=== PATIENT | female | born 1995 ===

== ENCOUNTER → 2017-07-20 | Outpatient (CLI) | payer SELFPAY ==
--- NOTE | 2017-07-20 11:55 | Diagnostic Imaging Report ---
PROCEDURE: US abdomen complete. TECHNIQUE: Multiple real-time grayscale images were obtained over the abdomen in various projections. INDICATION: Thrombocytopenia. FINDINGS: The pancreas is unremarkable. The liver is normal in size at 14.2 cm. There is homogeneous echotexture throughout the liver. No liver mass is identified. The portal vein is patent and demonstrates normal direction of flow. The gallbladder is without stones or sludge. No wall thickening is identified. There is no biliary duct dilatation. The spleen is normal in size at 9.2 cm. The right and left kidneys are unremarkable. There is no ascites. IMPRESSION: Unremarkable abdominal ultrasound. Dictated by: Dictated on workstation # [id number]
== END ==
LOC: RAD 09:59
PROVIDERS: ATTEND Internal Medicine Hematology & Oncology
DX: D69.6 Thrombocytopenia, unspecified (principal)
CPT/HCPCS: 76700

== ENCOUNTER → 2017-07-26 | Outpatient (CLI) | payer SELFPAY ==
--- NOTE | 2017-07-26 15:47 | Diagnostic Imaging Report ---
PROCEDURE: US OB SINGLE FETUS <14 WKS. TECHNIQUE: Multiple Real-time grayscale images were obtained over the gravid uterus in various projections. INDICATION: dating. FINDINGS: There is an intrauterine gestational sac containing a pole. The crown/rump length measurement is 4.2 cm, consistent with an 11 week 1 day gestation. The heart rate was recorded at 174 BPM. No raven-gestational sac hemorrhage is detected. Adnexal evaluation is somewhat limited due to overlying bowel gas. No definite adnexal mass or free fluid is seen. IMPRESSION: Single live IUP of 11 weeks 1 day gestational age. The estimated date of confinement sonographically is 02/13/2018. Dictated by: Dictated on workstation # [id number]
== END ==
LOC: RAD 13:40
PROVIDERS: ATTEND Family Medicine
DX: Z34.81 Encounter for supervision of other normal pregnancy, first trimester (principal); Z3A.11 11 weeks gestation of pregnancy
CPT/HCPCS: 76801

== ENCOUNTER 2017-08-28 11:00 | Emergency (ER) | payer SELFPAY ==
[~2017-08-28] VITALS: Ht 152.4 cm; Wt 48.5 kg
--- NOTE | 2017-08-28 11:59 | ED GU-Female ---
General Chief Complaint: -Female Stated Complaint: ABD PAIN Nursing Triage Note: TO ROOM CALLED SUSTAINABLE DEVELOPMENT POLICY ANALYST LINE FOR PATIENT WHO REPORTS THROUGH THEM THAT SHE IS HAVING LOW ABD PAIN SINCE LAST NIGHT AMD 3 MONTHS PREG. Nursing Sepsis Screen: No Definite Risk Source: patient, science interpreter Exam Limitations: language barrier History of Present Illness Date Seen by Provider: Aug 28, 2017 Time Seen by Provider: 11:59 Initial Comments 22-year-old female patient presents to the emergency Department with reports of lower abdominal pain which is cramping in nature. Patient denies vaginal bleeding, fever, hematuria. Patient states she has chronic idiopathic thrombocytopenia and sees Dr. Mobley for this. Patient is currently taking prednisone for the ITP. Patient is approximately [address] Olivera for OB care. States she was seen approximately [address] Guajardo and Dr. Olivera. She is scheduled for an another appointment with both physicians on neuro 09/01/17. Timing/Duration: constant Severity/Quality: cramping Location: suprapubic Radiation: none Activities at Onset: none Prior Genitourinary Problems: none Modifying Factors: Worsens With Palpation Allergies and Home Medications Allergies Coded Allergies: No Known Drug Allergies (Unverified , 08/28/17) Home Medications Cephalexin 500 Mg Capsule, 500 MG PO TID Prescribed by: LUCIANO WONG on 08/28/17 1518 Patient Home Medication List Home Medication List Reviewed: Yes Review of Systems Constitutional: No chills, No dizziness, No fever, No malaise EENTM: no symptoms reported, No epistaxis Respiratory: No cough, No dyspnea on exertion, No hemoptysis, No phlegm, No short of breath Cardiovascular: No chest pain, No edema, No palpitations Gastrointestinal: abdominal pain, No constipation, No diarrhea, No hematemesis , No loss of appetite, No melena, No nausea, No vomiting Genitourinary: see HPI, denies burning, denies discharge, denies dysuria, denies frequency, denies flank pain, denies hematuria, pain, denies other ( denies vaginal bleeding) : Yes Expected Date of Delivery: Feb 13, 2018 Musculoskeletal: no symptoms reported Skin: no symptoms reported, No change in color Psychiatric/Neurological: No Symptoms Reported Hematologic/Lymphatic: See HPI, Denies Easy Bleeding, Denies Easy Bruising All Other Systemes Reviewed Negative Unless Noted: Yes (Negative excepted noted.) Past Vfsmqnt-Rzxdnn-Pcmsdx Hx Patient Social History Alcohol Use: Denies Use Recreational Drug Use: No Smoking Status: Never a Smoker Recent Foreign Travel: No Contact w/Someone Who Travel: No Recent Infectious Disease Expo: No Past Medical History Surgeries: Yes Section Respiratory: No Cardiac: No Neurological: No : Yes Expected Date of Delivery: Feb 13, 2018 Hx : 3 Hx Para: 1 Hx Total # of Abortions (Sp): 1 Reproductive Disorders: No Female Reproductive Disorders: Denies Genitourinary: No Gastrointestinal: No Musculoskeletal: No Endocrine: No Psychosocial: No Integumentary: No Blood Disorders: Yes (chronic ITP (worse during pregnancies)) Family Medical History Reviewed Nursing Family Hx No Pertinent Family Hx Physical Exam Vital Signs Vital Signs - First Documented 08/28/17 11:13 Temp 98.0 Pulse 98 Resp 18 B/P (MAP) 93/68 (76) Pulse Ox 97 O2 Delivery Room Air Capillary Refill : Less Than 3 Seconds General Appearance: WD/WN, no apparent distress HEENT: PERRL/EOMI, pharynx normal Neck: supple, normal inspection Cardiovascular: normal peripheral pulses, regular rate, rhythm, no edema, no murmur Respiratory: lungs clear, normal breath sounds, no respiratory distress, no accessory muscle use Gastrointestinal: normal bowel sounds, soft, no organomegaly, no pulsatile mass , No distended, No guarding, No rebound, tenderness (mild tenderness suprapubic and bilateral adnexa) Back: normal inspection, no CVA tenderness Extremities: normal inspection, no pedal edema, no calf tenderness, normal capillary refill Neurologic/Psychiatric: alert, normal mood/affect, oriented x 3 Skin: normal color, warm/dry, No cyanosis, No cool, No ecchymosis, No jaundice Progress/Results/Core Measures Suspected Sepsis Recent Fever Within 48 Hours: No Infection Criteria Present: None New/Unexplained Altered Menta: No Sepsis Screen: No Definite Risk Sepsis Diagnosis: SIRS Temperature:98.0 Pulse: 98 Respiratory Rate: 18 Laboratory Tests 08/28/17 12:11: White Blood Count 13.7H Blood Pressure 93 /68 Mean: 76 Laboratory Tests 08/28/17 12:11: Creatinine 0.70, INR Comment 1.0, Platelet Count 39*L, Total Bilirubin 0.3 Results/Orders Lab Results Laboratory Tests Test 08/28/17 12:11 Range/Units White Blood Count 13.7 H 4.3-11.0 10^3/uL Red Blood Count 5.06 4.35-5.85 10^6/uL Hemoglobin 12.8 11.5-16.0 G/DL Hematocrit 39 35-52 % Mean Corpuscular Volume 77 L 80-99 FL Mean Corpuscular Hemoglobin 25 25-34 PG Mean Corpuscular Hemoglobin Concent 33 32-36 G/DL Red Cell Distribution Width 24.9 H 10.0-14.5 % Platelet Count 39 *L 130-400 10^3/uL Mean Platelet Volume 7.4-10.4 FL Neutrophils (%) (Auto) 76 H 42-75 % Lymphocytes (%) (Auto) 17 12-44 % Monocytes (%) (Auto) 6 0-12 % Eosinophils (%) (Auto) 1 0-10 % Basophils (%) (Auto) 0 0-10 % Neutrophils # (Auto) 10.4 H 1.8-7.8 X 10^3 Lymphocytes # (Auto) 2.4 1.0-4.0 X 10^3 Monocytes # (Auto) 0.8 0.0-1.0 X 10^3 Eosinophils # (Auto) 0.1 0.0-0.3 10^3/uL Basophils # (Auto) 0.0 0.0-0.1 10^3/uL Prothrombin Time 12.8 12.2-14.7 SEC INR Comment 1.0 0.8-1.4 Activated Partial Thromboplast Time 22 L 24-35 SEC Urine Color YELLOW Urine Clarity CLEAR Urine pH 6.5 5-9 Urine Specific [place] 1.015 L 1.016-1.022 Urine Protein NEGATIVE NEGATIVE Urine Glucose (UA) NEGATIVE NEGATIVE Urine Ketones NEGATIVE NEGATIVE Urine Nitrite NEGATIVE NEGATIVE Urine Bilirubin NEGATIVE NEGATIVE Urine Urobilinogen NORMAL NORMAL MG/DL Urine Leukocyte Esterase 1+ H NEGATIVE Urine RBC (Auto) NEGATIVE NEGATIVE Urine RBC NONE /HPF Urine WBC 2-5 /HPF Urine Squamous Epithelial Cells 5-10 /HPF Urine Crystals NONE /LPF Urine Bacteria MODERATE H /HPF Urine Casts NONE /LPF Urine Mucus NEGATIVE /LPF Urine Culture Indicated NO Sodium Level 136 135-145 MMOL/L Potassium Level 3.5 L 3.6-5.0 MMOL/L Chloride Level 103 98-107 MMOL/L Carbon Dioxide Level 25 21-32 MMOL/L Anion Gap 8 5-14 MMOL/L Blood Urea Nitrogen 5 L 7-18 MG/DL Creatinine 0.70 0.60-1.30 MG/DL Estimat Glomerular Filtration Rate > 60 BUN/Creatinine Ratio 7 Glucose Level 77 70-105 MG/DL Calcium Level 9.5 8.5-10.1 MG/DL Total Bilirubin 0.3 0.1-1.0 MG/DL Aspartate Amino Transf (AST/SGOT) 15 5-34 U/L Alanine Aminotransferase (ALT/SGPT) 19 0-55 U/L Alkaline Phosphatase 58 40-136 U/L Total Protein 7.4 6.4-8.2 GM/DL Albumin 4.1 3.2-4.5 GM/DL My Orders Orders - LUCIANO WONG Ua Culture If Indicated (08/28/17 11:59) Heart Tones (08/28/17 11:59) Saline Lock/Iv-Start (08/28/17 12:05) Cbc With Automated Diff (08/28/17 12:05) Comprehensive Metabolic Panel (08/28/17 12:05) Protime With Inr (08/28/17 12:18) Partial Thromboplastin Time (08/28/17 12:18) Morphine Injection (Morphine Injection (08/28/17 12:41) Ondansetron Injection (Zofran Injectio (08/28/17 12:45) Ns Iv 1000 Ml (Sodium Chloride 0.9%) (08/28/17 12:41) Us Ob Preg Late(14-40wks)94212 (08/28/17 12:42) Medications Given in ED Current Medications Medications Dose Ordered Sig/Jesus Route Start Time Stop Time Status Last Admin Dose Admin Ondansetron HCl 4 mg ONCE ONCE IVP 08/28/17 12:45 08/28/17 12:46 DC 08/28/17 12:52 4 MG Sodium Chloride 1,000 ml @ 0 mls/hr Q0M ONCE IV 08/28/17 12:41 08/28/17 12:43 DC 08/28/17 12:52 1,000 MLS/HR Vital Signs/I&O 08/28/17 08/28/17 11:13 15:27 Temp 98.0 Pulse 98 69 Resp 18 18 B/P (MAP) 93/68 (76) 102/72 Pulse Ox 97 98 O2 Delivery Room Air Capillary Refill : Less Than 3 Seconds Blood Pressure Mean: 76 Diagnostic Imaging Diagonstic Imaging: Ultrasound Plain Films/CT/US/NM/MRI: pelvis Comments FINDINGS: Estimated gestational age based on initial ultrasound 15 weeks 6 days. Today's measurements correspond to 15 weeks 6 days compatible with appropriate interval growth. Amniotic fluid volume appears appropriate. The placenta is located posteriorly without evidence of a previa. Cervix appears closed. cardiac motion appropriate at 132 beats per minute. IMPRESSION: 1. There has been appropriate interval growth compared to the prior ultrasound. Estimated gestational age 15 weeks 6 days which again corresponds to a estimated date of delivery of February 13, 2018. Amniotic fluid volume appears appropriate. The placenta is unremarkable. There is appropriate cardiac motion. Recommend a dedicated full anatomic survey at 20-22 weeks. Dictated on workstation # [id number] Reviewed: Reviewed by Me (radiology report reviewed by me) Departure Communication (Admissions) 1510 Patient case discussed with Dr. Cerda with recommendations for discharge to home with follow-up as an outpatient with Dr. Olivera. Follow-up laboratory findings, diagnostic study findings, and recommendations by Dr. Shahla Cerda discussed with the patient. We'll plan for discharge to home with 3 days of antibiotics for the moderate amount of bacteria noted on UA. Patient to return immediately to the emergency department if any worsening symptoms or any other concerns. Patient case discussed with Dr. Morales, he agrees with the plan of care. Impression Primary Impression: Lower abdominal pain Additional Impressions: Chronic ITP (idiopathic thrombocytopenia) with 15 completed weeks gestation Disposition: 01 HOME, SELF-CARE Condition: Improved Departure-Patient Inst. Decision time for Depature: 15:13 Referrals: KARINA OLIVERA MD (PCP/Family) Primary Care Physician Patient Instructions: Acute Abdomen (Belly Pain), Adult (DC), Essential Thrombocythemia, Round Ligament Pain Add. Discharge Instructions: All discharge instructions reviewed with patient and/or family. Voiced understanding. Tylenol onsi-vgq-ivfyvye as directed for pain. Continue usual home medications. Follow-up with Dr. Olivera and Dr. Guajardo this week as previously scheduled. Return to the emergency department immediately for worsened pain, fever, vomiting, vomiting blood, rectal bleeding, blood in the urine, vaginal bleeding, or any other concerns. Scripts Cephalexin (Keflex) 500 Mg Capsule 500 MG PO TID, #9 CAP 0 Refills Prov: LUCIANO WONG 08/28/17 LUCIANO WONG Aug 28, 2017 11:59
[2017-08-28 12:19] LABS: BASOPHILS % (AUTO) 0 % (0-10); EOSINOPHILS # (AUTO) 0.1 10^3/uL (0.0-0.3); EOSINOPHILS % (AUTO) 1 % (0-10); HEMATOCRIT 39 % (35-52); HEMOGLOBIN 12.8 G/DL (11.5-16.0); LYMPHOCYTES # (AUTO) 2.4 X 10^3 (1.0-4.0); LYMPHOCYTES % (AUTO) 17 % (12-44); MEAN CORPUSCULAR HEMOGLOBIN 25 PG (25-34); MEAN CORPUSCULAR HGB CONC 33 G/DL (32-36); MEAN CORPUSCULAR VOLUME 77 FL (80-99); MONOCYTES # (AUTO) 0.8 X 10^3 (0.0-1.0); MONOCYTES % (AUTO) 6 % (0-12); NEUTROPHILS # (AUTO) 10.4 X 10^3 (1.8-7.8); NEUTROPHILS % (AUTO) 76 % (42-75); RED BLOOD COUNT 5.06 10^6/uL (4.35-5.85); RED CELL DISTRIBUTION WIDTH 24.9 % (10.0-14.5); WHITE BLOOD COUNT 13.7 10^3/uL (4.3-11.0)
[2017-08-28 12:24] LABS: BILIRUBIN,URINE NEGATIVE (NEGATIVE); CLARITY,URINE CLEAR; COLOR,URINE YELLOW; GLUCOSE, URINE (UA) NEGATIVE (NEGATIVE); KETONES,URINE NEGATIVE (NEGATIVE); LEUKOCYTE ESTERASE ,URINE 1+ (NEGATIVE); NITRITE,URINE NEGATIVE (NEGATIVE); PH,URINE 6.5 (5-9); PROTEIN,URINE NEGATIVE (NEGATIVE); UROBILINOGEN,URINE NORMAL (NORMAL)
[2017-08-28 12:33] LABS: PLATELET COUNT 39 10^3/uL (130-400)
[2017-08-28 12:34] LABS: ALANINE AMINOTRANSFERASE 19 U/L (0-55); ALBUMIN 4.1 GM/DL (3.2-4.5); ALKALINE PHOSPHATASE 58 U/L (40-136); BILIRUBIN,TOTAL 0.3 MG/DL (0.1-1.0); BUN/CREATININE RATIO 7; CALCIUM 9.5 MG/DL (8.5-10.1); CARBON DIOXIDE 25 MMOL/L (21-32); CHLORIDE 103 MMOL/L (98-107); GFR ESTIMATED > 60; GLUCOSE 77 MG/DL (70-105); POTASSIUM 3.5 MMOL/L (3.6-5.0); SODIUM 136 MMOL/L (135-145); TOTAL PROTEIN 7.4 GM/DL (6.4-8.2)
[2017-08-28] MEDS ORDERED: morphine INJ 10 MG/ML 1ML (SYR OR VIAL) IVP STA (12:41)
[2017-08-28] MEDS ORDERED: NS IV 1000 ML 1,000 ML IV ONE (12:41)
[2017-08-28] MEDS ORDERED: ONDANSETRON 4 MG/2 ML (SDV) Z0FRAN IVP ONE (12:45)
[2017-08-28 12:50] LABS: BACTERIA,URINE MODERATE /HPF
[2017-08-28 12:59] LABS: PROTHROMBIN TIME PATIENT 12.8 SEC (12.2-14.7)
--- NOTE | 2017-08-28 14:11 | Diagnostic Imaging Report ---
EXAMINATION: Obstetrical sonogram INDICATION: Pelvic cramping. Correlation made with a prior ultrasound from 07/26/2017. FINDINGS: Estimated gestational age based on initial ultrasound 15 weeks 6 days. Today's measurements correspond to 15 weeks 6 days compatible with appropriate interval growth. Amniotic fluid volume appears appropriate. The placenta is located posteriorly without evidence of a previa. Cervix appears closed. cardiac motion appropriate at 132 beats per minute. IMPRESSION: 1. There has been appropriate interval growth compared to the prior ultrasound. Estimated gestational age 15 weeks 6 days which again corresponds to a estimated date of delivery of February 13, 2018. Amniotic fluid volume appears appropriate. The placenta is unremarkable. There is appropriate cardiac motion. Recommend a dedicated full anatomic survey at 20-22 weeks. Dictated by: Dictated on workstation # [id number]
[2017-08-28] MEDS ORDERED: CEPH-507 PO (15:18)
[2017-08-28 15:27] VITALS: BP 102/72
== END 2017-08-28 15:31 | disposition home or self-care (01) ==
LOC: EDUNIT# 11:00 → ER 11:01
DX: O99.89 Other specified diseases and conditions complicating pregnancy, childbirth and the puerperium (principal); R10.30 Lower abdominal pain, unspecified; O99.112 Other diseases of the blood and blood-forming organs and certain disorders involving the immune mechanism complicating pregnancy, second trimester; D69.3 Immune thrombocytopenic purpura; Z87.59 Personal history of other complications of pregnancy, childbirth and the puerperium; Z3A.15 15 weeks gestation of pregnancy
CPT/HCPCS: 36415; 76805; 80053; 81000; 85025; 85610; 85730

== ENCOUNTER → 2017-10-10 | Outpatient (RCR) | payer SELFPAY ==
[2017-07-12 10:18] LABS: BASOPHILS % (AUTO) 0 % (0-10); EOSINOPHILS # (AUTO) 0.1 10^3/uL (0.0-0.3); EOSINOPHILS % (AUTO) 1 % (0-10); HEMATOCRIT 34 % (35-52); LYMPHOCYTES # (AUTO) 1.6 X 10^3 (1.0-4.0); LYMPHOCYTES % (AUTO) 17 % (12-44); MEAN CORPUSCULAR HEMOGLOBIN 23 PG (25-34); MEAN CORPUSCULAR HGB CONC 33 G/DL (32-36); MEAN CORPUSCULAR VOLUME 70 FL (80-99); MONOCYTES # (AUTO) 0.6 X 10^3 (0.0-1.0); MONOCYTES % (AUTO) 7 % (0-12); NEUTROPHILS # (AUTO) 7.1 X 10^3 (1.8-7.8); NEUTROPHILS % (AUTO) 75 % (42-75); PLATELET COUNT 47 10^3/uL (130-400); RED BLOOD COUNT 4.81 10^6/uL (4.35-5.85); RED CELL DISTRIBUTION WIDTH 17.6 % (10.0-14.5); WHITE BLOOD COUNT 9.5 10^3/uL (4.3-11.0)
[2017-07-12 10:41] LABS: ALANINE AMINOTRANSFERASE 31 U/L (0-55); ALKALINE PHOSPHATASE 66 U/L (40-136); BILIRUBIN,TOTAL 0.3 MG/DL (0.1-1.0); BUN/CREATININE RATIO 10; CARBON DIOXIDE 22 MMOL/L (21-32); CHLORIDE 106 MMOL/L (98-107); GFR ESTIMATED > 60; GLUCOSE 89 MG/DL (70-105); POTASSIUM 3.6 MMOL/L (3.6-5.0); SODIUM 136 MMOL/L (135-145); TOTAL PROTEIN 7.3 GM/DL (6.4-8.2)
[2017-07-25 11:39] LABS: ABSOLUTE RETIC # 47 10e9/L (24-90); BASOPHILS % (AUTO) 0 % (0-10); EOSINOPHILS # (AUTO) 0.1 10^3/uL (0.0-0.3); EOSINOPHILS % (AUTO) 1 % (0-10); HEMATOCRIT 35 % (35-52); LYMPHOCYTES # (AUTO) 1.6 X 10^3 (1.0-4.0); LYMPHOCYTES % (AUTO) 20 % (12-44); MEAN CORPUSCULAR HEMOGLOBIN 23 PG (25-34); MEAN CORPUSCULAR HGB CONC 32 G/DL (32-36); MEAN CORPUSCULAR VOLUME 71 FL (80-99); MONOCYTES # (AUTO) 0.6 X 10^3 (0.0-1.0); MONOCYTES % (AUTO) 7 % (0-12); NEUTROPHILS % (AUTO) 72 % (42-75); PLATELET COUNT 46 10^3/uL (130-400); RED BLOOD COUNT 4.87 10^6/uL (4.35-5.85); RED CELL DISTRIBUTION WIDTH 19.9 % (10.0-14.5); RETICULOCYTE % 0.97 % (0.50-2.40); WHITE BLOOD COUNT 8.4 10^3/uL (4.3-11.0)
[2017-07-25 13:07] LABS: ANISOCYTOSIS SLIGHT; BAND NEUTROPHILS 0 %; BASOPHILS % (MANUAL) 1 %; ELLIPT/OVALOCYTES SLIGHT; EOSINOPHILS % (MANUAL) 2 %; LYMPHOCYTES % (MANUAL) 17 %; MICROCYTOSIS SLIGHT; MONOCYTES % (MANUAL) 2 %; NEUTROPHILS % (MANUAL) 78 %
[2017-08-04 15:06] LABS: BASOPHILS % (AUTO) 0 % (0-10); EOSINOPHILS # (AUTO) 0.1 10^3/uL (0.0-0.3); EOSINOPHILS % (AUTO) 2 % (0-10); HEMATOCRIT 32 % (35-52); HEMOGLOBIN 10.7 G/DL (11.5-16.0); LYMPHOCYTES # (AUTO) 1.6 X 10^3 (1.0-4.0); LYMPHOCYTES % (AUTO) 21 % (12-44); MEAN CORPUSCULAR HEMOGLOBIN 24 PG (25-34); MEAN CORPUSCULAR HGB CONC 33 G/DL (32-36); MEAN CORPUSCULAR VOLUME 72 FL (80-99); MONOCYTES # (AUTO) 0.6 X 10^3 (0.0-1.0); MONOCYTES % (AUTO) 7 % (0-12); NEUTROPHILS # (AUTO) 5.3 X 10^3 (1.8-7.8); NEUTROPHILS % (AUTO) 69 % (42-75); RED BLOOD COUNT 4.48 10^6/uL (4.35-5.85); RED CELL DISTRIBUTION WIDTH 21.8 % (10.0-14.5); WHITE BLOOD COUNT 7.6 10^3/uL (4.3-11.0)
[2017-08-04 15:08] LABS: PLATELET COUNT 18 10^3/uL (130-400)
[2017-08-11 16:25] LABS: BASOPHILS % (AUTO) 0 % (0-10); EOSINOPHILS # (AUTO) 0.1 10^3/uL (0.0-0.3); EOSINOPHILS % (AUTO) 1 % (0-10); HEMATOCRIT 33 % (35-52); HEMOGLOBIN 10.8 G/DL (11.5-16.0); LYMPHOCYTES # (AUTO) 2.6 X 10^3 (1.0-4.0); LYMPHOCYTES % (AUTO) 31 % (12-44); MEAN CORPUSCULAR HEMOGLOBIN 24 PG (25-34); MEAN CORPUSCULAR HGB CONC 33 G/DL (32-36); MEAN CORPUSCULAR VOLUME 74 FL (80-99); MONOCYTES # (AUTO) 0.5 X 10^3 (0.0-1.0); MONOCYTES % (AUTO) 6 % (0-12); NEUTROPHILS # (AUTO) 5.2 X 10^3 (1.8-7.8); NEUTROPHILS % (AUTO) 61 % (42-75); RED BLOOD COUNT 4.45 10^6/uL (4.35-5.85); RED CELL DISTRIBUTION WIDTH 23.1 % (10.0-14.5); WHITE BLOOD COUNT 8.6 10^3/uL (4.3-11.0)
[2017-08-11 17:26] LABS: PLATELET COUNT 45 10^3/uL (130-400)
[2017-08-15 11:36] LABS: BASOPHILS % (AUTO) 0 % (0-10); EOSINOPHILS % (AUTO) 0 % (0-10); HEMATOCRIT 36 % (35-52); HEMOGLOBIN 11.7 G/DL (11.5-16.0); LYMPHOCYTES # (AUTO) 2.4 X 10^3 (1.0-4.0); LYMPHOCYTES % (AUTO) 16 % (12-44); MEAN CORPUSCULAR HEMOGLOBIN 24 PG (25-34); MEAN CORPUSCULAR HGB CONC 33 G/DL (32-36); MEAN CORPUSCULAR VOLUME 74 FL (80-99); MONOCYTES # (AUTO) 1.1 X 10^3 (0.0-1.0); MONOCYTES % (AUTO) 7 % (0-12); NEUTROPHILS # (AUTO) 11.4 X 10^3 (1.8-7.8); NEUTROPHILS % (AUTO) 76 % (42-75); RED BLOOD COUNT 4.83 10^6/uL (4.35-5.85); RED CELL DISTRIBUTION WIDTH 24.1 % (10.0-14.5); WHITE BLOOD COUNT 14.9 10^3/uL (4.3-11.0)
[2017-08-15 12:33] LABS: PLATELET COUNT 50 10^3/uL (130-400); SMEAR SCAN COMMENT YES
[2017-08-22 10:44] LABS: BASOPHILS % (AUTO) 0 % (0-10); EOSINOPHILS % (AUTO) 0 % (0-10); HEMATOCRIT 36 % (35-52); HEMOGLOBIN 11.7 G/DL (11.5-16.0); LYMPHOCYTES # (AUTO) 1.1 X 10^3 (1.0-4.0); LYMPHOCYTES % (AUTO) 6 % (12-44); MEAN CORPUSCULAR HEMOGLOBIN 25 PG (25-34); MEAN CORPUSCULAR HGB CONC 33 G/DL (32-36); MEAN CORPUSCULAR VOLUME 76 FL (80-99); MONOCYTES # (AUTO) 0.6 X 10^3 (0.0-1.0); MONOCYTES % (AUTO) 3 % (0-12); NEUTROPHILS # (AUTO) 16.1 X 10^3 (1.8-7.8); NEUTROPHILS % (AUTO) 90 % (42-75); RED BLOOD COUNT 4.71 10^6/uL (4.35-5.85); RED CELL DISTRIBUTION WIDTH 24.5 % (10.0-14.5); WHITE BLOOD COUNT 17.8 10^3/uL (4.3-11.0)
[2017-08-22 10:56] LABS: PLATELET COUNT 29 10^3/uL (130-400)
[2017-08-29 10:49] LABS: BASOPHILS % (AUTO) 0 % (0-10); EOSINOPHILS # (AUTO) 0.1 10^3/uL (0.0-0.3); EOSINOPHILS % (AUTO) 1 % (0-10); HEMATOCRIT 37 % (35-52); HEMOGLOBIN 12.1 G/DL (11.5-16.0); LYMPHOCYTES # (AUTO) 0.9 X 10^3 (1.0-4.0); LYMPHOCYTES % (AUTO) 9 % (12-44); MEAN CORPUSCULAR HEMOGLOBIN 25 PG (25-34); MEAN CORPUSCULAR HGB CONC 33 G/DL (32-36); MEAN CORPUSCULAR VOLUME 77 FL (80-99); MONOCYTES # (AUTO) 0.4 X 10^3 (0.0-1.0); MONOCYTES % (AUTO) 4 % (0-12); NEUTROPHILS # (AUTO) 9.6 X 10^3 (1.8-7.8); NEUTROPHILS % (AUTO) 87 % (42-75); RED BLOOD COUNT 4.78 10^6/uL (4.35-5.85); RED CELL DISTRIBUTION WIDTH 24.8 % (10.0-14.5); WHITE BLOOD COUNT 11.1 10^3/uL (4.3-11.0)
[2017-08-29 10:52] LABS: PLATELET COUNT 57 10^3/uL (130-400)
[2017-09-01 15:32] LABS: BASOPHILS % (AUTO) 0 % (0-10); EOSINOPHILS # (AUTO) 0.1 10^3/uL (0.0-0.3); EOSINOPHILS % (AUTO) 1 % (0-10); HEMATOCRIT 34 % (35-52); HEMOGLOBIN 11.2 G/DL (11.5-16.0); LYMPHOCYTES # (AUTO) 1.9 X 10^3 (1.0-4.0); LYMPHOCYTES % (AUTO) 19 % (12-44); MEAN CORPUSCULAR HEMOGLOBIN 25 PG (25-34); MEAN CORPUSCULAR HGB CONC 33 G/DL (32-36); MEAN CORPUSCULAR VOLUME 77 FL (80-99); MONOCYTES # (AUTO) 0.7 X 10^3 (0.0-1.0); MONOCYTES % (AUTO) 7 % (0-12); NEUTROPHILS # (AUTO) 7.4 X 10^3 (1.8-7.8); NEUTROPHILS % (AUTO) 74 % (42-75); PLATELET COUNT 42 10^3/uL (130-400); RED BLOOD COUNT 4.43 10^6/uL (4.35-5.85); RED CELL DISTRIBUTION WIDTH 24.7 % (10.0-14.5)
[2017-09-01 15:51] LABS: ALANINE AMINOTRANSFERASE 23 U/L (0-55); ALBUMIN 3.7 GM/DL (3.2-4.5); ALKALINE PHOSPHATASE 45 U/L (40-136); BILIRUBIN,TOTAL 0.2 MG/DL (0.1-1.0); BUN/CREATININE RATIO 14; CALCIUM 8.9 MG/DL (8.5-10.1); CARBON DIOXIDE 22 MMOL/L (21-32); CHLORIDE 106 MMOL/L (98-107); CREATININE SERUM 0.66 MG/DL (0.60-1.30); GFR ESTIMATED > 60; GLUCOSE 118 MG/DL (70-105); POTASSIUM 3.7 MMOL/L (3.6-5.0); SODIUM 137 MMOL/L (135-145); TOTAL PROTEIN 6.5 GM/DL (6.4-8.2)
[2017-09-05 10:25] LABS: BASOPHILS % (AUTO) 0 % (0-10); EOSINOPHILS % (AUTO) 0 % (0-10); HEMATOCRIT 35 % (35-52); HEMOGLOBIN 11.7 G/DL (11.5-16.0); LYMPHOCYTES # (AUTO) 1.5 X 10^3 (1.0-4.0); LYMPHOCYTES % (AUTO) 16 % (12-44); MEAN CORPUSCULAR HEMOGLOBIN 26 PG (25-34); MEAN CORPUSCULAR HGB CONC 33 G/DL (32-36); MEAN CORPUSCULAR VOLUME 78 FL (80-99); MONOCYTES # (AUTO) 0.6 X 10^3 (0.0-1.0); MONOCYTES % (AUTO) 6 % (0-12); NEUTROPHILS # (AUTO) 7.4 X 10^3 (1.8-7.8); NEUTROPHILS % (AUTO) 77 % (42-75); PLATELET COUNT 50 10^3/uL (130-400); RED BLOOD COUNT 4.55 10^6/uL (4.35-5.85); RED CELL DISTRIBUTION WIDTH 24.9 % (10.0-14.5); WHITE BLOOD COUNT 9.6 10^3/uL (4.3-11.0)
[2017-09-12 10:07] LABS: BASOPHILS % (AUTO) 0 % (0-10); EOSINOPHILS # (AUTO) 0.1 10^3/uL (0.0-0.3); EOSINOPHILS % (AUTO) 1 % (0-10); HEMATOCRIT 36 % (35-52); HEMOGLOBIN 11.9 G/DL (11.5-16.0); LYMPHOCYTES # (AUTO) 1.2 X 10^3 (1.0-4.0); LYMPHOCYTES % (AUTO) 14 % (12-44); MEAN CORPUSCULAR HEMOGLOBIN 26 PG (25-34); MEAN CORPUSCULAR HGB CONC 33 G/DL (32-36); MEAN CORPUSCULAR VOLUME 78 FL (80-99); MONOCYTES # (AUTO) 0.6 X 10^3 (0.0-1.0); MONOCYTES % (AUTO) 7 % (0-12); NEUTROPHILS # (AUTO) 6.7 X 10^3 (1.8-7.8); NEUTROPHILS % (AUTO) 78 % (42-75); PLATELET COUNT 48 10^3/uL (130-400); RED BLOOD COUNT 4.66 10^6/uL (4.35-5.85); WHITE BLOOD COUNT 8.7 10^3/uL (4.3-11.0)
[2017-09-19 10:14] LABS: BASOPHILS % (AUTO) 0 % (0-10); EOSINOPHILS # (AUTO) 0.1 10^3/uL (0.0-0.3); EOSINOPHILS % (AUTO) 1 % (0-10); HEMATOCRIT 34 % (35-52); HEMOGLOBIN 11.5 G/DL (11.5-16.0); LYMPHOCYTES # (AUTO) 1.5 X 10^3 (1.0-4.0); LYMPHOCYTES % (AUTO) 16 % (12-44); MEAN CORPUSCULAR HEMOGLOBIN 26 PG (25-34); MEAN CORPUSCULAR HGB CONC 34 G/DL (32-36); MEAN CORPUSCULAR VOLUME 78 FL (80-99); MONOCYTES # (AUTO) 0.6 X 10^3 (0.0-1.0); MONOCYTES % (AUTO) 6 % (0-12); NEUTROPHILS # (AUTO) 7.6 X 10^3 (1.8-7.8); NEUTROPHILS % (AUTO) 77 % (42-75); RED BLOOD COUNT 4.38 10^6/uL (4.35-5.85); RED CELL DISTRIBUTION WIDTH 21.8 % (10.0-14.5); WHITE BLOOD COUNT 9.9 10^3/uL (4.3-11.0)
[2017-09-19 10:16] LABS: PLATELET COUNT 48 10^3/uL (130-400)
[2017-09-26 10:58] LABS: BASOPHILS % (AUTO) 0 % (0-10); EOSINOPHILS # (AUTO) 0.1 10^3/uL (0.0-0.3); EOSINOPHILS % (AUTO) 1 % (0-10); HEMATOCRIT 32 % (35-52); HEMOGLOBIN 10.5 G/DL (11.5-16.0); LYMPHOCYTES # (AUTO) 1.8 X 10^3 (1.0-4.0); LYMPHOCYTES % (AUTO) 19 % (12-44); MEAN CORPUSCULAR HEMOGLOBIN 26 PG (25-34); MEAN CORPUSCULAR HGB CONC 33 G/DL (32-36); MEAN CORPUSCULAR VOLUME 79 FL (80-99); MONOCYTES # (AUTO) 0.8 X 10^3 (0.0-1.0); MONOCYTES % (AUTO) 9 % (0-12); NEUTROPHILS # (AUTO) 6.5 X 10^3 (1.8-7.8); NEUTROPHILS % (AUTO) 71 % (42-75); PLATELET COUNT 52 10^3/uL (130-400); RED BLOOD COUNT 4.04 10^6/uL (4.35-5.85); WHITE BLOOD COUNT 9.1 10^3/uL (4.3-11.0)
[2017-10-03 11:12] LABS: BASOPHILS % (AUTO) 0 % (0-10); EOSINOPHILS # (AUTO) 0.1 10^3/uL (0.0-0.3); EOSINOPHILS % (AUTO) 1 % (0-10); HEMATOCRIT 30 % (35-52); LYMPHOCYTES % (AUTO) 26 % (12-44); MEAN CORPUSCULAR HEMOGLOBIN 27 PG (25-34); MEAN CORPUSCULAR HGB CONC 33 G/DL (32-36); MEAN CORPUSCULAR VOLUME 80 FL (80-99); MONOCYTES # (AUTO) 0.6 X 10^3 (0.0-1.0); MONOCYTES % (AUTO) 8 % (0-12); NEUTROPHILS # (AUTO) 4.9 X 10^3 (1.8-7.8); NEUTROPHILS % (AUTO) 65 % (42-75); PLATELET COUNT 56 10^3/uL (130-400); RED BLOOD COUNT 3.76 10^6/uL (4.35-5.85); RED CELL DISTRIBUTION WIDTH 18.8 % (10.0-14.5); WHITE BLOOD COUNT 7.6 10^3/uL (4.3-11.0)
[2017-10-03 11:29] LABS: ALANINE AMINOTRANSFERASE 13 U/L (0-55); ALBUMIN 3.2 GM/DL (3.2-4.5); ALKALINE PHOSPHATASE 58 U/L (40-136); BILIRUBIN,TOTAL 0.2 MG/DL (0.1-1.0); BUN/CREATININE RATIO 13; CALCIUM 9.1 MG/DL (8.5-10.1); CARBON DIOXIDE 23 MMOL/L (21-32); CHLORIDE 110 MMOL/L (98-107); CREATININE SERUM 0.72 MG/DL (0.60-1.30); GFR ESTIMATED > 60; GLUCOSE 79 MG/DL (70-105); POTASSIUM 3.7 MMOL/L (3.6-5.0); SODIUM 139 MMOL/L (135-145); TOTAL PROTEIN 5.8 GM/DL (6.4-8.2)
[~2017-10-10] MED LIST: CEPH-507 PO
[2017-10-10 10:24] LABS: BASOPHILS % (AUTO) 0 % (0-10); EOSINOPHILS # (AUTO) 0.1 10^3/uL (0.0-0.3); EOSINOPHILS % (AUTO) 1 % (0-10); HEMATOCRIT 31 % (35-52); HEMOGLOBIN 10.1 G/DL (11.5-16.0); LYMPHOCYTES # (AUTO) 1.8 X 10^3 (1.0-4.0); LYMPHOCYTES % (AUTO) 19 % (12-44); MEAN CORPUSCULAR HEMOGLOBIN 26 PG (25-34); MEAN CORPUSCULAR HGB CONC 33 G/DL (32-36); MEAN CORPUSCULAR VOLUME 80 FL (80-99); MONOCYTES # (AUTO) 0.7 X 10^3 (0.0-1.0); MONOCYTES % (AUTO) 7 % (0-12); NEUTROPHILS # (AUTO) 7.2 X 10^3 (1.8-7.8); NEUTROPHILS % (AUTO) 73 % (42-75); PLATELET COUNT 52 10^3/uL (130-400); RED BLOOD COUNT 3.87 10^6/uL (4.35-5.85); RED CELL DISTRIBUTION WIDTH 17.2 % (10.0-14.5); WHITE BLOOD COUNT 9.8 10^3/uL (4.3-11.0)
== END | disposition home or self-care (01) ==
LOC: ONC 06-10 10:39
PROVIDERS: ATTEND Internal Medicine Hematology & Oncology
DX: D50.9 Iron deficiency anemia, unspecified (principal); D69.6 Thrombocytopenia, unspecified
CPT/HCPCS: 36415; 38221; 80053; 83615; 85007; 85025; 85027; 85045; 88184; 88185; 88237; 88264; 88280; 88305; 88311; 88313; 99213; 99214

== ENCOUNTER → 2018-01-20 | Outpatient (CLI) | payer OTHER ==
--- NOTE | 2018-01-20 19:09 | Diagnostic Imaging Report ---
INDICATION: Third trimester . TECHNIQUE: biophysical profile performed in routine fashion. FINDINGS: Fetus scored 2 out of 2 in breathing, movement, posture and tone, and amniotic fluid. Amniotic fluid index was 6.3 cm. Fetus is in cephalic presentation. heart rate is 132 beats per minute. IMPRESSION: biophysical profile score 8 out of 8. Dictated by: Dictated on workstation # [id number]
== END ==
LOC: RAD 16:07
PROVIDERS: ATTEND Family Medicine
DX: Z36.89 Encounter for other specified antenatal screening (principal); O99.113 Other diseases of the blood and blood-forming organs and certain disorders involving the immune mechanism complicating pregnancy, third trimester; D69.3 Immune thrombocytopenic purpura; Z3A.00 Weeks of gestation of pregnancy not specified
CPT/HCPCS: 76819

== ENCOUNTER → 2018-01-26 | Outpatient (CLI) | payer OTHER ==
--- NOTE | 2018-01-26 13:35 | Diagnostic Imaging Report ---
INDICATION: Chronic ITP. FINDINGS: Biophysical profile was performed. The fetus is cephalic. heart rate is recorded at 140 beats per minute. Amniotic fluid index is 7.3 cm. Biophysical profile score is 8 out of 8. IMPRESSION: Biophysical profile score 8 out of 8. Dictated by: Dictated on workstation # [id number]
== END ==
LOC: RAD 12:11
PROVIDERS: ATTEND Family Medicine
DX: O99.113 Other diseases of the blood and blood-forming organs and certain disorders involving the immune mechanism complicating pregnancy, third trimester (principal); D69.3 Immune thrombocytopenic purpura; Z3A.00 Weeks of gestation of pregnancy not specified
CPT/HCPCS: 76819

== ENCOUNTER 2018-02-02 10:00 | Outpatient (RCR) | payer OTHER ==
[2018-01-26 09:31] LABS: BASOPHILS % (AUTO) 0 % (0-10); EOSINOPHILS # (AUTO) 0.1 10^3/uL (0.0-0.3); EOSINOPHILS % (AUTO) 1 % (0-10); HEMATOCRIT 40 % (35-52); HEMOGLOBIN 13.2 G/DL (11.5-16.0); LYMPHOCYTES # (AUTO) 1.3 X 10^3 (1.0-4.0); LYMPHOCYTES % (AUTO) 15 % (12-44); MEAN CORPUSCULAR HEMOGLOBIN 28 PG (25-34); MEAN CORPUSCULAR HGB CONC 33 G/DL (32-36); MEAN CORPUSCULAR VOLUME 85 FL (80-99); MONOCYTES # (AUTO) 0.4 X 10^3 (0.0-1.0); MONOCYTES % (AUTO) 5 % (0-12); NEUTROPHILS # (AUTO) 6.6 X 10^3 (1.8-7.8); NEUTROPHILS % (AUTO) 79 % (42-75); RED BLOOD COUNT 4.66 10^6/uL (4.35-5.85); RED CELL DISTRIBUTION WIDTH 21.1 % (10.0-14.5); WHITE BLOOD COUNT 8.4 10^3/uL (4.3-11.0)
[2018-01-26 09:33] LABS: PLATELET COUNT 31 10^3/uL (130-400)
[2018-02-02 10:22] LABS: BASOPHILS % (AUTO) 0 % (0-10); EOSINOPHILS # (AUTO) 0.1 10^3/uL (0.0-0.3); EOSINOPHILS % (AUTO) 1 % (0-10); HEMATOCRIT 38 % (35-52); HEMOGLOBIN 12.8 G/DL (11.5-16.0); LYMPHOCYTES % (AUTO) 18 % (12-44); MEAN CORPUSCULAR HEMOGLOBIN 29 PG (25-34); MEAN CORPUSCULAR HGB CONC 34 G/DL (32-36); MEAN CORPUSCULAR VOLUME 85 FL (80-99); MONOCYTES # (AUTO) 0.4 X 10^3 (0.0-1.0); MONOCYTES % (AUTO) 7 % (0-12); NEUTROPHILS % (AUTO) 74 % (42-75); RED BLOOD COUNT 4.46 10^6/uL (4.35-5.85); RED CELL DISTRIBUTION WIDTH 20.5 % (10.0-14.5); WHITE BLOOD COUNT 5.4 10^3/uL (4.3-11.0)
[2018-02-02 10:26] LABS: PLATELET COUNT 10 10^3/uL (130-400)
== END 2018-02-19 | disposition home or self-care (01) ==
LOC: ONC 10:00
PROVIDERS: ATTEND Internal Medicine Hematology & Oncology
DX: D50.9 Iron deficiency anemia, unspecified (principal); D69.6 Thrombocytopenia, unspecified
CPT/HCPCS: 36415; 85025; 99213

== ENCOUNTER 2018-04-18 08:52 | Outpatient (RCR) | payer OTHER ==
[2018-03-21 11:12] LABS: BASOPHILS % (AUTO) 0 % (0-10); EOSINOPHILS # (AUTO) 0.1 10^3/uL (0.0-0.3); EOSINOPHILS % (AUTO) 1 % (0-10); HEMATOCRIT 39 % (35-52); HEMOGLOBIN 13.2 G/DL (11.5-16.0); LYMPHOCYTES # (AUTO) 1.3 X 10^3 (1.0-4.0); LYMPHOCYTES % (AUTO) 12 % (12-44); MEAN CORPUSCULAR HEMOGLOBIN 30 PG (25-34); MEAN CORPUSCULAR HGB CONC 34 G/DL (32-36); MEAN CORPUSCULAR VOLUME 88 FL (80-99); MONOCYTES # (AUTO) 0.7 X 10^3 (0.0-1.0); MONOCYTES % (AUTO) 7 % (0-12); NEUTROPHILS # (AUTO) 8.3 X 10^3 (1.8-7.8); NEUTROPHILS % (AUTO) 80 % (42-75); RED CELL DISTRIBUTION WIDTH 14.1 % (10.0-14.5); WHITE BLOOD COUNT 10.4 10^3/uL (4.3-11.0)
[2018-03-21 11:14] LABS: PLATELET COUNT 36 10^3/uL (130-400)
[2018-03-21 11:30] LABS: ALANINE AMINOTRANSFERASE 123 U/L (0-55); ALBUMIN 4.2 GM/DL (3.2-4.5); ALKALINE PHOSPHATASE 105 U/L (40-136); BILIRUBIN,TOTAL 0.7 MG/DL (0.1-1.0); BUN/CREATININE RATIO 13; CALCIUM 9.1 MG/DL (8.5-10.1); CARBON DIOXIDE 22 MMOL/L (21-32); CHLORIDE 108 MMOL/L (98-107); CREATININE SERUM 0.78 MG/DL (0.60-1.30); GFR ESTIMATED > 60; GLUCOSE 94 MG/DL (70-105); POTASSIUM 3.6 MMOL/L (3.6-5.0); SODIUM 139 MMOL/L (135-145); TOTAL PROTEIN 7.4 GM/DL (6.4-8.2)
[2018-04-18 09:07] LABS: BASOPHILS % (AUTO) 0 % (0-10); EOSINOPHILS # (AUTO) 0.1 10^3/uL (0.0-0.3); EOSINOPHILS % (AUTO) 2 % (0-10); HEMATOCRIT 42 % (35-52); HEMOGLOBIN 13.9 G/DL (11.5-16.0); LYMPHOCYTES # (AUTO) 1.7 X 10^3 (1.0-4.0); LYMPHOCYTES % (AUTO) 26 % (12-44); MEAN CORPUSCULAR HEMOGLOBIN 29 PG (25-34); MEAN CORPUSCULAR HGB CONC 33 G/DL (32-36); MEAN CORPUSCULAR VOLUME 87 FL (80-99); MONOCYTES # (AUTO) 0.5 X 10^3 (0.0-1.0); MONOCYTES % (AUTO) 7 % (0-12); NEUTROPHILS # (AUTO) 4.1 X 10^3 (1.8-7.8); NEUTROPHILS % (AUTO) 65 % (42-75); PLATELET COUNT 42 10^3/uL (130-400); RED CELL DISTRIBUTION WIDTH 13.2 % (10.0-14.5); WHITE BLOOD COUNT 6.4 10^3/uL (4.3-11.0)
[2018-04-18 09:30] LABS: ALANINE AMINOTRANSFERASE 72 U/L (0-55); ALBUMIN 4.5 GM/DL (3.2-4.5); ALKALINE PHOSPHATASE 97 U/L (40-136); BILIRUBIN,TOTAL 0.5 MG/DL (0.1-1.0); BUN/CREATININE RATIO 16; CALCIUM 9.6 MG/DL (8.5-10.1); CARBON DIOXIDE 21 MMOL/L (21-32); CHLORIDE 108 MMOL/L (98-107); CREATININE SERUM 0.79 MG/DL (0.60-1.30); GFR ESTIMATED > 60; GLUCOSE 105 MG/DL (70-105); POTASSIUM 3.9 MMOL/L (3.6-5.0); SODIUM 141 MMOL/L (135-145); TOTAL PROTEIN 7.8 GM/DL (6.4-8.2)
== END 2018-06-19 | disposition home or self-care (01) ==
LOC: ONC 08:52
PROVIDERS: ATTEND Internal Medicine Hematology & Oncology
DX: D69.3 Immune thrombocytopenic purpura (principal); D50.9 Iron deficiency anemia, unspecified; Z79.899 Other long term (current) drug therapy
CPT/HCPCS: 36415; 80053; 82728; 85025; 99213

== ENCOUNTER 2018-07-12 08:00 | Inpatient (IN) | payer OTHER ==
[~2018-07-12] VITALS: Ht 149.9 cm; Wt 48.5 kg
[~2018-07-12 08:00] MED LIST changes: +PRD50T PO
--- OUTSIDE RECORDS SUMMARY | 2018-07-14 06:53 | XMS REPORT ---
Author Author RUPA EAGLE [facility] Address [address] [place] [address] Care Team Providers Care Radio Time Buyer Name Role Phone [facility]CO RUPA Unavailable PROBLEMS Type Condition ICD9-CM Code [id number] Code Onset Dates Condition Status SNOMED Code Problem Chronic fatigue R53.82 Active 45704313 Problem Irregular intermenstrual bleeding N92.1 Active 81857905 Problem Thrombocytopenia D69.6 Active 912858307 Problem Platelet disorder D69.1 Active 99974089 Problem Other iron deficiency anemia D50.8 Active 04141690 Problem Chronic ITP (idiopathic thrombocytopenic purpura) D69.3 Active 158234622 Problem Missed period N92.6 Active 46160744 ALLERGIES No Information ENCOUNTERS Encounter Location Date Diagnosis [place] [id number] [place] [address] Mar, Encounter for immunization Z23 [place] [address] [address] 31 Feb, 2018 Irregular intermenstrual bleeding N92.1 ; care and examination Z39.[address] Z97.5 [place] [id number] [place] [address] 30 Feb, 2018 [place] [id number] [place] [address] Feb, [place] [address] [address] Jan, [place] [id number] [place] [address] Jan, [place] [id number] [place] [address] Jan, [facility] [address] [address] Jan, Chronic ITP (idiopathic thrombocytopenic purpura) D69.3 and Third trimester Z34.93 [facility] [address] [facility] [id number] [place] [id number] Jan, [facility] [address] [place] [address] Dec, Third trimester Z34.93 and Chronic ITP ( idiopathic thrombocytopenic purpura) D69.3 [facility] [address] [place] [address] Dec, [facility] [address] [place] [address] Dec, [facility] [address] [address] Dec, Dysuria R30.0 [facility] [address] [place] [address] Dec, [facility] [address] [place] [address] Nov, [facility] [address] [address] Nov, [facility] [address] [place] [address] Nov, [facility] [address], [place] [address] Nov, [facility] [address] [address] Oct, [facility] [address] [place] [address] Oct, [facility] [address], [place] [address] September, [facility] [address] [address] Aug, [place] [id number] [place] [address] Aug, [facility] [address] [address] Jul, Normal in multigravida Z34.80 ; 13 weeks gestation of Z3A.13 and Previous section complicating O34.219 [place] [address] [address] Jul, Thrombocytopenia D69.6 [place] [id number] [place] [address]- [address] 16 Jul, 2017 Other specified related conditions, first trimester O26.891 and Dysuria R30.0 [place] [id number] [place] [address] Jul, Thrombocytopenia D69.6 [facility] [address], [place] [address] Jul, [place] [address] [address] Jun, [place] [address] [address] Jun, [place] [address] [address] Jun, Normal in multigravida Z34.80 ; 9 weeks gestation of Z3A.09 ; Previous section complicating O34.219 and Chronic ITP (idiopathic thrombocytopenic purpura) D69.3 [place] [address], [place] [address] May, Missed period N92.6 ; Dysuria R30.0 ; Positive test Z32.01 ; First trimester Z34.90 and History of Z98.891 [place] [id number] [address] May, [place] [address], [place] [address] May, Other iron deficiency anemia D50.8 and Platelet disorder D69.1 [place] [address], [place] [address] May, Encounter for test Z32.00 [place] [address], [place] [address] Apr, [place] [address] [place] [address] Apr, [place] [address], [place] [address] Mar, Chronic fatigue R53.82 IMMUNIZATIONS Vaccine Route Administration Date Status FLULAVAL QUAD 0.5ML (6 MO & UP) 2018 IM Intramuscular Apr 18, 2018 Administered MENINGOCOCCAL (MENVEO) IM Intramuscular Apr 18, 2018 Administered BEXSERO (MEN B) IM Intramuscular Apr 18, 2018 Administered PCV 13 IM Intramuscular Apr 18, 2018 Administered SOCIAL HISTORY Never Assessed REASON FOR VISIT 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-awoods PLAN OF CARE Activity Details Follow Up 4 Weeks Reason: VITAL SIGNS MEDICATIONS Unknown Medications RESULTS No Results PROCEDURES Procedure Date Ordered Result Body Site FLULAVAL QUAD 0.5ML (6 MO & UP) 2018 Apr 18, 2018 MENINGOCOCCAL (MENVEO) Apr 18, 2018 PCV 13 Apr 18, 2018 BEXSERO (MEN B) Apr 18, 2018 IMMUNIZATION ADMIN, EACH ADD (please include units) Apr 18, 2018 SINGLE IMMUNIZATION ADMIN Apr 18, 2018 INSTRUCTIONS MEDICATIONS ADMINISTERED No Known Medications MEDICAL (GENERAL) HISTORY Type Description Date Medical History gastritis Medical History thrombotic trombocytopenic purpura Surgical History 2012
--- OUTSIDE RECORDS SUMMARY | 2018-07-14 06:53 | XMS REPORT ---
Author Author KARINA OLIVERA [facility] Address [address] [place] [address] Care Team Providers Care Residential Support Worker Name Role Phone KARINA OLIVERA Unavailable PROBLEMS Type Condition ICD9-CM Code NVM96-HX Code Onset Dates Condition Status SNOMED Code Problem Thrombocytopenia D69.6 Active 835712213 Problem Chronic ITP (idiopathic thrombocytopenic purpura) D69.3 Active 092660466 Problem Other iron deficiency anemia D50.8 Active 28321700 Problem Chronic fatigue R53.82 Active 82485740 Problem Missed period N92.6 Active 06379981 Problem Platelet disorder D69.1 Active 15139251 ALLERGIES No Information ENCOUNTERS Encounter Location Date Diagnosis [place] [id number] [place] [address] 79577- 1540 Feb, [place] [id number] [place] [address] 66588- 4669 Jan, [place] [id number] [place] [address] 75423- 4359 Jan, [place] [id number] [place] [address] 71370- 0229 Jan, [place] [id number] [place] [address] 55883- 6507 Jan, Chronic ITP (idiopathic thrombocytopenic purpura) D69.3 and Third trimester Z34.93 [facility] [id number] [place] [address] 96955- 5899 Jan, [place] [id number] [place] [address] 62537- 7441 Dec, Third trimester Z34.93 and Chronic ITP ( idiopathic thrombocytopenic purpura) D69.3 [place] [address] [facility] [id number] [place] [address]- 9110 Dec, [facility] [id number] [address] 8985 Dec, [facility] [id number] [address]- 8075 Dec, Dysuria R30.0 [facility] [address] [facility] [id number] [place] [address]- 7619 Dec, [facility] [address] [facility] [id number] [place] [address]- 6644 Nov, [facility] [id number] [address]- 6684 Nov, [facility] [id number] [address]- 5807 Nov, [facility] [id number] [address]- 4858 Nov, [facility] [id number] [address]- 7505 Oct, [facility] [address] [address] 9598 Oct, [facility] [address] [address]- 6807 September, [facility] [address] [address]- 4809 Aug, [facility] [id number] [address]- 9090 Aug, [facility] [address] [address]- 3974 Jul, Normal in multigravida Z34.80 ; 13 weeks gestation of Z3A.13 and Previous section complicating O34.219 [facility] [id number] [place] [address] 47469- 4438 Jul, Thrombocytopenia D69.6 [place] [id number] [place] [address] 87386- 8829 Jul, Other specified related conditions, first trimester O26.891 and Dysuria R30.0 [place] [id number] [place] [address] 56369- 5566 Jul, Thrombocytopenia D69.6 [place] [id number] [place] [address] 71329- 9867 Jul, [place] [id number] [place] [address] 88207- 7858 Jun, [place] [id number] [place] [address] 89308- 5684 Jun, [place] [id number] [place] [address] 78317- 7735 Jun, Normal in multigravida Z34.80 ; 9 weeks gestation of Z3A.09 ; Previous section complicating O34.219 and Chronic ITP (idiopathic thrombocytopenic purpura) D69.3 [place] [id number] [place] [address] 59103- 0077 May, Missed period N92.6 ; Dysuria R30.0 ; Positive test Z32.01 ; First trimester Z34.90 and History of Z98.891 [place] [id number] [place] [address] 55224- 8645 May, [place] [id number] [place] [address] 82871- 4374 May, Other iron deficiency anemia D50.8 and Platelet disorder D69.1 [place] [id number] [place] [address] 22296- 6074 May, Encounter for test Z32.00 [place] [id number] [place] [address] 56977- 4716 Apr, [facility] [address] [facility] [id number] [place] [address]- 2546 Apr, [facility] [address] [facility] [id number] [place] [address]- 2546 Mar, Chronic fatigue R53.82 IMMUNIZATIONS No Known Immunizations SOCIAL HISTORY Never Assessed REASON FOR VISIT PLAN OF CARE VITAL SIGNS MEDICATIONS Unknown Medications RESULTS No Results PROCEDURES No Known procedures INSTRUCTIONS MEDICATIONS ADMINISTERED No Known Medications MEDICAL (GENERAL) HISTORY Type Description Date Medical History gastritis Medical History thrombotic trombocytopenic purpura Surgical History 2012
--- OUTSIDE RECORDS SUMMARY | 2018-07-14 06:53 | XMS REPORT ---
Author Author KARINA OLIVERA Organization [facility] Address [address] [place] [address] Care Team Providers Care Bulb Weeder Name Role Phone KARINA OLIVERA Unavailable PROBLEMS Type Condition ICD9-CM Code YYH34-BO Code Onset Dates Condition Status SNOMED Code Problem Chronic fatigue R53.82 Active 79790517 Problem Irregular intermenstrual bleeding N92.1 Active 80908503 Problem Thrombocytopenia D69.6 Active 996808996 Problem Platelet disorder D69.1 Active 95920538 Problem Other iron deficiency anemia D50.8 Active 32824605 Problem Chronic ITP (idiopathic thrombocytopenic purpura) D69.3 Active 745768467 Problem Missed period N92.6 Active 11310226 ALLERGIES No Known Allergies ENCOUNTERS Encounter Location Date Diagnosis [place] [id number] [place] [address] 72831- 7325 31 Feb, 2018 Irregular intermenstrual bleeding N92.1 ; care and examination Z39.[address] Z97.5 [place] [id number] [place] [address] 62931- 1239 30 Feb, 2018 [facility] [id number] [place] [address] 71539- 6963 Feb, [facility] [id number] [place] [address] 03990- 7648 Jan, [facility] [id number] [place] [address] 97456- 1163 Jan, [facility] [id number] [place] [address] 64793- 1444 Jan, [facility] [id number] [place] [address] 13280- 3438 Jan, Chronic ITP (idiopathic thrombocytopenic purpura) D69.3 and Third trimester Z34.93 [facility] [address], [place] [address]- 1389 Jan, [facility] [address] [address]- 1943 Dec, Third trimester Z34.93 and Chronic ITP ( idiopathic thrombocytopenic purpura) D69.3 [facility] [id number] [place] [address] 66041- 5811 Dec, [facility] [address] [address]- 4462 Dec, [facility] [id number] [place] [address] 66213- 7527 Dec, Dysuria R30.0 [facility] [id number] [place] [address] 79876- 4712 Dec, [facility] [id number] [address]- 7321 Nov, [facility] [id number] [address]- 6244 Nov, [facility] [address] [address]- 7262 Nov, [facility] [address] [address]- 3360 Nov, [facility] [address] [address]- 4458 Oct, [facility] [id number] [address]- 9301 Oct, [facility] [id number] [address]- 2824 September, [facility] [address] [address]- 0678 Aug, [place] [address] [address]- 3994 Aug, [place] [id number] [place] [address] 82704- 0485 Jul, Normal in multigravida Z34.80 ; 13 weeks gestation of Z3A.13 and Previous section complicating O34.219 [place] [id number] [place] [address] 77556- 2709 Jul, Thrombocytopenia D69.6 [place] [id number] [place] [address] 73283- 4293 Jul, Other specified related conditions, first trimester O26.891 and Dysuria R30.0 [place] [id number] [place] [address] 91440- 7119 Jul, Thrombocytopenia D69.6 [place] [id number] [place] [address] 04921- 3709 Jul, [place] [id number] [place] [address] 46699- 8794 Jun, [place] [id number] [place] [address] 37540- 5550 Jun, [place] [id number] [place] [address] 64280- 4895 Jun, Normal in multigravida Z34.80 ; 9 weeks gestation of Z3A.09 ; Previous section complicating O34.219 and Chronic ITP (idiopathic thrombocytopenic purpura) D69.3 [place] [id number] [place] [address] 46715- 1896 May, Missed period N92.6 ; Dysuria R30.0 ; Positive test Z32.01 ; First trimester Z34.90 and History of Z98.891 [place] [id number] [place] [address] 42511- 4001 May, [facility] [address] [facility] [id number] [address]- 4679 May, Other iron deficiency anemia D50.8 and Platelet disorder D69.1 [facility] [id number] [address]- 7166 May, Encounter for test Z32.00 [place] [address] [address]- 8110 Apr, [facility] [id number] [address]- 1418 Apr, [place] [address] [address]- 5217 Mar, Chronic fatigue R53.82 IMMUNIZATIONS No Known Immunizations SOCIAL HISTORY Never Assessed REASON FOR VISIT OB- -- tanya sparks PLAN OF CARE Activity Details Follow Up prn Reason: VITAL SIGNS Height 57.2 in 2018-03-22 Weight 97.5 lbs 2018-03-22 Temperature 97.8 degrees Fahrenheit 2018-03-22 Heart Rate 68 bpm 2018-03-22 Respiratory Rate 18 2018-03-22 BMI 20.95 kg/m2 2018-03-22 Blood pressure systolic 100 mmHg 2018-03-22 Blood pressure diastolic 68 mmHg 2018-03-22 MEDICATIONS Medication Instructions Dosage Frequency Start Date End Date Duration Status MedroxyPROGESTERone Acetate 10 mg Orally Once a day 1 tablet with food 24h Feb, Mar, 7 days Active RESULTS No Results PROCEDURES No Known procedures INSTRUCTIONS MEDICATIONS ADMINISTERED No Known Medications MEDICAL (GENERAL) HISTORY Type Description Date Medical History gastritis Medical History thrombotic trombocytopenic purpura Surgical History 2011
--- OUTSIDE RECORDS SUMMARY | 2018-07-14 06:53 | XMS REPORT ---
Author Author PEYTON KIM [facility] Address [address] [place] [address] Care Team Providers Care Wet Process Miller Head Name Role Phone PEYTON KIM Unavailable PROBLEMS Type Condition ICD9-CM Code TVX36-MR Code Onset Dates Condition Status SNOMED Code Problem Chronic fatigue R53.82 Active 27829134 Problem Irregular intermenstrual bleeding N92.1 Active 50092099 Problem Thrombocytopenia D69.6 Active 624579368 Problem Platelet disorder D69.1 Active 47311319 Problem Other iron deficiency anemia D50.8 Active 66818937 Problem Chronic ITP (idiopathic thrombocytopenic purpura) D69.3 Active 512515631 Problem Missed period N92.6 Active 09045283 ALLERGIES No Known Allergies ENCOUNTERS Encounter Location Date Diagnosis [place] [id number] [place] [address] 03473- 8655 Apr, Ingrown toenail with infection L60.0 [place] [id number] [place] [address] 90921- 1739 Mar, Encounter for immunization Z23 [place] [id number] [place] [address] 67172- 5132 31 Feb, 2018 Irregular intermenstrual bleeding N92.1 ; care and examination Z39.[address] Z97.5 [place] [address] [id number] [place] [address] 00275- 8431 30 Feb, 2018 [place] [address] 46049- 9206 15 Feb, 2018 [place] [address] 73972- 8978 Jan, [place] [address] [place] [address]- 6423 Jan, [facility] [address], [place] [address]- 1294 Jan, [facility] [address], [place] [address]- 0831 Jan, Chronic ITP (idiopathic thrombocytopenic purpura) D69.3 and Third trimester Z34.93 [facility] [id number] [place] [address] 34324- 4814 Jan, [facility] [address], [place] [address]- 4160 Dec, Third trimester Z34.93 and Chronic ITP ( idiopathic thrombocytopenic purpura) D69.3 [facility] [address], [place] [address]- 4747 Dec, [facility] [id number], [place] [address]- 0447 Dec, [facility] [address], [place] [address]- 5115 Dec, Dysuria R30.0 [facility] [address], [place] [address]- 7905 Dec, [facility] [address], [place] [address]- 8395 Nov, [facility] [address], [place] [address]- 5759 Nov, [facility] [address], [place] [address]- 5862 Nov, [facility] [address], [place] [address]- 8628 Nov, [facility] [address] 3778 Oct, [facility] [id number] [place] [address] 13629- 6958 Oct, [place] [id number] [place] [address] 05434- 9891 September, [place] [id number] [place] [address] 19481- 1592 Aug, [place] [id number] [place] [address] 45890- 3802 Aug, [place] [id number] [place] [address] 36501- 9965 Jul, Normal in multigravida Z34.80 ; 13 weeks gestation of Z3A.13 and Previous section complicating O34.219 [place] [id number] [place] [address] 53709- 7131 Jul, Thrombocytopenia D69.6 [place] [id number] [place] [address] 74168- 2613 Jul, Other specified related conditions, first trimester O26.891 and Dysuria R30.0 [place] [id number] [place] [address] 19731- 5420 Jul, Thrombocytopenia D69.6 [place] [id number] [place] [address] 70592- 9658 Jul, [place] [id number] [place] [address] 19433- 0744 Jun, [place] [id number] [place] [address] 75084- 9687 Jun, [place] [id number] [place] [address] 55499- 9396 Jun, Normal in multigravida Z34.80 ; 9 weeks gestation of Z3A.09 ; Previous section complicating O34.219 and Chronic ITP (idiopathic thrombocytopenic purpura) D69.3 [place] [id number] [place] [address] 47340- 4413 May, Missed period N92.6 ; Dysuria R30.0 ; Positive test Z32.01 ; First trimester Z34.90 and History of Z98.891 [place] [address], [place] [address]- 8098 May, [place] [id number] [place] [address] 77689- 7451 May, Other iron deficiency anemia D50.8 and Platelet disorder D69.1 [place] [id number] [place] [address] 85294- 1543 May, Encounter for test Z32.00 [place] [address] [place] [address] 45232- 7393 Apr, [place] [id number] [place] [address] 24698- 4271 Apr, [place] [id number] [place] [address] 90087- 7444 Mar, Chronic fatigue R53.82 IMMUNIZATIONS No Known Immunizations SOCIAL HISTORY Never Assessed REASON FOR VISIT ingrown toenail,RT big toe- VERONICA Vanegas PLAN OF CARE Activity Details Follow Up 2-4wk Reason:partial toenail removal VITAL SIGNS Height 57.2 in 2018-05-10 Weight 100.8 lbs 2018-05-10 Temperature 96.9 degrees Fahrenheit 2018-05-10 Heart Rate 93 bpm 2018-05-10 Respiratory Rate 20 2018-05-10 BMI 21.66 kg/m2 2018-05-10 Blood pressure systolic 122 mmHg 2018-05-10 Blood pressure diastolic 68 mmHg 2018-05-10 MEDICATIONS Medication Instructions Dosage Frequency Start Date End Date Duration Status Cephalexin 500 mg Orally 3 times a day 1 capsule 8h Apr, 10 day (s) Active RESULTS No Results PROCEDURES No Known procedures INSTRUCTIONS MEDICATIONS ADMINISTERED No Known Medications MEDICAL (GENERAL) HISTORY Type Description Date Medical History gastritis Medical History thrombotic trombocytopenic purpura Surgical History 2011
--- OUTSIDE RECORDS SUMMARY | 2018-07-14 06:53 | XMS REPORT ---
Author Author KARINA OLIVERA [facility] Address [address] [place] [address] Care Team Providers Care Thread Dresser Name Role Phone KARINA OLIVERA Unavailable PROBLEMS Type Condition ICD9-CM Code HHD49-HL Code Onset Dates Condition Status SNOMED Code Problem Thrombocytopenia D69.6 Active 694119178 Problem Chronic ITP (idiopathic thrombocytopenic purpura) D69.3 Active 317609842 Problem Other iron deficiency anemia D50.8 Active 66224598 Problem Chronic fatigue R53.82 Active 25385933 Problem Missed period N92.6 Active 82034501 Problem Platelet disorder D69.1 Active 20639728 ALLERGIES No Information ENCOUNTERS Encounter Location Date Diagnosis [place] [id number] [place] [address] 20967- 1120 Feb, [place] [id number] [place] [address] 33438- 6367 Jan, [place] [id number] [place] [address] 81208- 2469 Jan, [place] [id number] [place] [address] 77939- 9997 Jan, [place] [id number] [place] [address] 53371- 1752 Jan, Chronic ITP (idiopathic thrombocytopenic purpura) D69.3 and Third trimester Z34.93 [facility] [id number] [place] [address] 37753- 9940 Jan, [place] [id number] [place] [address] 17800- 2463 Dec, Third trimester Z34.93 and Chronic ITP ( idiopathic thrombocytopenic purpura) D69.3 [place] [address] [facility] [id number] [place] [address]- 5652 Dec, [facility] [id number] [place] [address]- 5093 Dec, [facility] [id number] [place] [address]- 4195 Dec, Dysuria R30.0 [facility] [address] [facility] [id number] [place] [address]- 2552 Dec, [facility] [address] [facility] [id number] [place] [address]- 8375 Nov, [facility] [id number] [place] [address]- 9527 Nov, [facility] [id number] [place] [address]- 7408 Nov, [facility] [id number] [place] [address]- 7721 Nov, [facility] [id number] [place] [address]- 7176 Oct, [facility] [id number] [address]- 3407 Oct, [facility] [id number] [address]- 8384 September, [facility] [id number] [address]- 9436 Aug, [facility] [id number] [address]- 1841 Aug, [facility] [address] [address]- 2638 Jul, Normal in multigravida Z34.80 ; 13 weeks gestation of Z3A.13 and Previous section complicating O34.219 [facility] [id number] [place] [address] 82153- 2191 Jul, Thrombocytopenia D69.6 [place] [id number] [place] [address] 46447- 4481 Jul, Other specified related conditions, first trimester O26.891 and Dysuria R30.0 [place] [id number] [place] [address] 16894- 9997 Jul, Thrombocytopenia D69.6 [place] [id number] [place] [address] 11423- 1208 Jul, [place] [id number] [place] [address] 41989- 4283 Jun, [place] [id number] [place] [address] 39947- 6349 Jun, [place] [id number] [place] [address] 90847- 8045 Jun, Normal in multigravida Z34.80 ; 9 weeks gestation of Z3A.09 ; Previous section complicating O34.219 and Chronic ITP (idiopathic thrombocytopenic purpura) D69.3 [place] [id number] [place] [address] 83439- 8877 May, Missed period N92.6 ; Dysuria R30.0 ; Positive test Z32.01 ; First trimester Z34.90 and History of Z98.891 [place] [address] [place] [id number] [place] [id number] May, [place] [address] [place] [id number] [place] [phone] May, Other iron deficiency anemia D50.8 and Platelet disorder D69.1 [place] [address] [place] [id number] [place] [address] [phone] May, Encounter for test Z32.00 [place] [address] [place] [place] [id number] [place] [phone] Apr, [facility] [address] [facility] [id number] [place] [address] Apr, [facility] [address] [facility] [id number] [place] [address] Mar, Chronic fatigue R53.82 IMMUNIZATIONS No Known Immunizations SOCIAL HISTORY Never Assessed REASON FOR VISIT PLAN OF CARE VITAL SIGNS MEDICATIONS Unknown Medications RESULTS No Results PROCEDURES No Known procedures INSTRUCTIONS MEDICATIONS ADMINISTERED No Known Medications MEDICAL (GENERAL) HISTORY Type Description Date Medical History gastritis Medical History thrombotic trombocytopenic purpura Surgical History 2012
--- OUTSIDE RECORDS SUMMARY | 2018-07-14 06:53 | XMS REPORT ---
Author Author KARINA OLIVERA Organization [facility] Address [address] [place] [address] Care Team Providers Care Nremt Name Role Phone KARINA OLIVERA Unavailable PROBLEMS Type Condition ICD9-CM Code [id number] Code Onset Dates Condition Status SNOMED Code Problem Chronic fatigue R53.82 Active 63776288 Problem Irregular intermenstrual bleeding N92.1 Active 44804088 Problem Thrombocytopenia D69.6 Active 567807451 Problem Platelet disorder D69.1 Active 20924980 Problem Other iron deficiency anemia D50.8 Active 75109611 Problem Chronic ITP (idiopathic thrombocytopenic purpura) D69.3 Active 128531701 Problem Missed period N92.6 Active 93265010 ALLERGIES No Information ENCOUNTERS Encounter Location Date Diagnosis [facility] [id number] [place] [address] 36767- 8941 31 Feb, 2018 Irregular intermenstrual bleeding N92.1 ; care and examination Z39.[address] Z97[address]5 [facility] [id number] [place] [address] 07170- 9794 30 Feb, 2018 [facility] [id number] [place] [address] 94527- 1018 Feb, [facility] [id number] [place] [address] 91689- 4284 Jan, [facility] [id number] [place] [address] 28140- 0238 Jan, [facility] [id number] [place] [address] 16360- 6942 Jan, [facility] [id number] [place] [address] 12358- 5473 Jan, Chronic ITP (idiopathic thrombocytopenic purpura) D69.3 and Third trimester Z34.93 [facility] [address] [address] 0875 Jan, [facility] [address] [address] 7250 Dec, Third trimester Z34.93 and Chronic ITP ( idiopathic thrombocytopenic purpura) D69.3 [facility] [id number] [place] [address] 20263- 5649 Dec, [facility] [id number] [address]- 7012 Dec, [facility] [id number] [place] [address] 12167- 8482 Dec, Dysuria R30.0 [facility] [id number] [place] [address] 17003- 2374 Dec, [facility] [id number] [address] 4049 Nov, [facility] [id number] [address]- 3941 Nov, [facility] [address] [address]- 2357 Nov, [facility] [address] [address]- 3085 Nov, [facility] [address] [address]- 6120 Oct, [facility] [address] [address]- 1024 Oct, [facility] [id number] [address] 1245 September, [facility] [address] [address] 1934 Aug, [place] [address] [address]- 1384 Aug, [place] [id number] [place] [address] 67134- 9801 Jul, Normal in multigravida Z34.80 ; 13 weeks gestation of Z3A.13 and Previous section complicating O34.219 [place] [id number] [place] [address] 18702- 3760 Jul, Thrombocytopenia D69.6 [place] [id number] [place] [address] 09863- 1532 Jul, Other specified related conditions, first trimester O26.891 and Dysuria R30.0 [place] [id number] [place] [address] 37303- 7112 Jul, Thrombocytopenia D69.6 [place] [id number] [place] [address] 75269- 1554 Jul, [place] [id number] [place] [address] 42461- 1741 Jun, [place] [id number] [place] [address] 60192- 9336 Jun, [place] [address] [place] [address] 56916- 4359 Jun, Normal in multigravida Z34.80 ; 9 weeks gestation of Z3A.09 ; Previous section complicating O34.219 and Chronic ITP (idiopathic thrombocytopenic purpura) D69.3 [place] [id number] [place] [address] 08356- 6408 May, Missed period N92.6 ; Dysuria R30.0 ; Positive test Z32.01 ; First trimester Z34.90 and History of Z98.891 [place] [address] [place] [address] 87354- 1756 May, [facility] [address] [address]- 4591 May, Other iron deficiency anemia D50.8 and Platelet disorder D69.1 [place] [address] [place] [address] 42684- 8264 May, Encounter for test Z32.00 [place] [id number] [place] [address] 22538- 0956 Apr, [place] [id number] [place] [address] 90216- 6951 Apr, [place] [id number] [place] [address] 54423- 6488 Mar, Chronic fatigue R53.82 IMMUNIZATIONS No Known Immunizations SOCIAL HISTORY Never Assessed REASON FOR VISIT Requests return call PLAN OF CARE VITAL SIGNS MEDICATIONS No Known Medications RESULTS No Results PROCEDURES No Known procedures INSTRUCTIONS MEDICATIONS ADMINISTERED No Known Medications MEDICAL (GENERAL) HISTORY Type Description Date Medical History gastritis Medical History thrombotic trombocytopenic purpura Surgical History 2012
--- OUTSIDE RECORDS SUMMARY | 2018-07-14 06:53 | XMS REPORT ---
Author Author KARINA OLIVERA [facility] Address [address] [place] [address] Care Team Providers Care Person Investigator Name Role Phone KARINA OLIVERA Unavailable PROBLEMS Type Condition ICD9-CM Code [id number] Code Onset Dates Condition Status SNOMED Code Problem Thrombocytopenia D69.6 Active 143857157 Problem Chronic ITP (idiopathic thrombocytopenic purpura) D69.3 Active 807777617 Problem Other iron deficiency anemia D50.8 Active 96824317 Problem Chronic fatigue R53.82 Active 27079756 Problem Missed period N92.6 Active 70662643 Problem Platelet disorder D69.1 Active 07987385 ALLERGIES No Information ENCOUNTERS Encounter Location Date Diagnosis [place] [id number] [place] [address] 80995- 8051 Feb, [place] [id number] [place] [address] 09335- 0708 Jan, [place] [id number] [place] [address] 61366- 3279 Jan, [place] [id number] [place] [address] 56316- 8519 Jan, [place] [id number] [place] [address] 53942- 6726 05 Jan, 2018 Chronic ITP (idiopathic thrombocytopenic purpura) D69.3 and Third trimester Z34.93 [place] [id number] [place] [address] 70716- 3796 Jan, [place] [id number] [place] [address] 60948- 6423 Dec, Third trimester Z34.93 and Chronic ITP ( idiopathic thrombocytopenic purpura) D69.3 [place] [address] [facility] [id number] [place] [address]- 2604 Dec, [facility] [address] [address]- 0047 Dec, [facility] [address] [address]- 9571 Dec, Dysuria R30.0 [facility] [address] [facility] [id number] [place] [address]- 8915 Dec, [facility] [address] [facility] [id number] [place] [address]- 5860 Nov, [facility] [address] [address]- 4490 Nov, [facility] [address] [address]- 5209 Nov, [facility] [address] [address]- 9339 Nov, [facility] [address] [address]- 9913 Oct, [facility] [address], [place] [address]- 4460 Oct, [facility] [address], [place] [address]- 7386 September, [facility] [address], [place] [address]- 2892 Aug, [facility] [id number] [address]- 5776 Aug, [facility] [address], [place] [address]- 5899 Jul, Normal in multigravida Z34.80 ; 13 weeks gestation of Z3A.13 and Previous section complicating O34.219 [facility] [address] [place] [address] 86707- 9011 Jul, Thrombocytopenia D69.6 [place] [id number] [place] [address] 40363- 6094 Jul, Other specified related conditions, first trimester O26.891 and Dysuria R30.0 [place] [id number] [place] [address] 88415- 6685 Jul, Thrombocytopenia D69.6 [place] [id number] [place] [address] 49337- 1467 Jul, [place] [id number] [place] [address] 25933- 4955 Jun, [place] [id number] [place] [address] 69563- 8629 Jun, [place] [id number] [place] [address] 98806- 9258 Jun, Normal in multigravida Z34.80 ; 9 weeks gestation of Z3A.09 ; Previous section complicating O34.219 and Chronic ITP (idiopathic thrombocytopenic purpura) D69.3 [place] [id number] [place] [address] 26118- 2505 May, Missed period N92.6 ; Dysuria R30.0 ; Positive test Z32.01 ; First trimester Z34.90 and History of Z98.891 [place] [id number] [place] [address] 94053- 1783 May, [place] [id number] [place] [address] 71741- 8573 May, Other iron deficiency anemia D50.8 and Platelet disorder D69.1 [place] [id number] [place] [address] 15882- 0271 May, Encounter for test Z32.00 [place] [id number] [place] [address] 23838- 0676 Apr, [facility] [address] [facility] [id number] [place] [address]- 2546 Apr, [facility] [address] [facility] [id number] [place] [address]- 2546 Mar, Chronic fatigue R53.82 IMMUNIZATIONS No Known Immunizations SOCIAL HISTORY Never Assessed REASON FOR VISIT PLAN OF CARE VITAL SIGNS MEDICATIONS Unknown Medications RESULTS No Results PROCEDURES No Known procedures INSTRUCTIONS MEDICATIONS ADMINISTERED No Known Medications MEDICAL (GENERAL) HISTORY Type Description Date Medical History gastritis Medical History thrombotic trombocytopenic purpura Surgical History 2012
--- OUTSIDE RECORDS SUMMARY | 2018-07-14 06:54 | XMS REPORT ---
Author Author KARINA OLIVERA [facility] Address [address] [place] [address] Care Team Providers Care Economic Adviser Name Role Phone KARINA OLIVERA Unavailable PROBLEMS Type Condition ICD9-CM Code [id number] Code Onset Dates Condition Status SNOMED Code Problem Thrombocytopenia D69.6 Active 901722150 Problem Chronic ITP (idiopathic thrombocytopenic purpura) D69.3 Active 372971811 Problem Other iron deficiency anemia D50.8 Active 97783852 Problem Chronic fatigue R53.82 Active 15988440 Problem Missed period N92.6 Active 89085752 Problem Platelet disorder D69.1 Active 28507392 ALLERGIES No Information ENCOUNTERS Encounter Location Date Diagnosis [place] [address] 67186- 5917 Jan, Chronic ITP (idiopathic thrombocytopenic purpura) D69.3 and Third trimester Z34.93 [facility] [id number] [place] [address] 00868- 8379 Dec, Third trimester Z34.93 and Chronic ITP ( idiopathic thrombocytopenic purpura) D69.3 [place] [id number] [place] [address] 05011- 3621 Dec, [facility] [id number] [place] [address] 37676- 4418 Dec, [facility] [address] 93336- 6232 Dec, Dysuria R30.0 [facility] [id number] [place] [address] 85488- 0095 Dec, [place] [address] 93294- 3703 Nov, [facility] [address], [place] [address]- 8481 Nov, [facility] [address], [place] [address]- 7306 Nov, [facility] [address], [place] [address]- 7090 Nov, [facility] [id number] [place] [address] 20677- 3402 Oct, [facility] [address] [place] [address] 69478- 4297 Oct, [facility] [id number] [place] [address] 54346- 5154 September, [facility] [id number] [place] [address] 89615- 9775 Aug, [facility] [id number] [place] [address] 83182- 1798 Aug, [facility] [address] [place] [address] 87066- 7639 Jul, Normal in multigravida Z34.80 ; 13 weeks gestation of Z3A.13 and Previous section complicating O34.219 [facility] [address], [place] [address]- 7792 Jul, Thrombocytopenia D69.6 [facility] [address] [place] [address] 27246- 9170 Jul, Other specified related conditions, first trimester O26.891 and Dysuria R30.0 [facility] [id number] [place] [address] 32702- 4211 Jul, Thrombocytopenia D69.6 [facility] [address], [place] [address]- 0325 Jul, [facility] [id number] [place] [address] 25176- 1347 Jun, [place] [address] [place] [address] 71000- 8599 Jun, [place] [address] [place] [address] 51455- 9297 Jun, Normal in multigravida Z34.80 ; 9 weeks gestation of Z3A.09 ; Previous section complicating O34.219 and Chronic ITP (idiopathic thrombocytopenic purpura) D69.3 [place] [address] [place] [address] 12756- 8949 May, Missed period N92.6 ; Dysuria R30.0 ; Positive test Z32.01 ; First trimester Z34.90 and History of Z98.891 [place] [id number] [address]- 5074 May, [place] [id number] [place] [address] 48231- 7249 May, Other iron deficiency anemia D50.8 and Platelet disorder D69.1 [place] [id number] [place] [address] 88509- 0137 16 May, 2017 Encounter for test Z32.00 [place] [address] [place] [address] 81509- 5139 Apr, [place] [id number] [place] [address] 29395- 6530 Apr, [place] [address] [place] [address] 53872- 2764 Mar, Chronic fatigue R53.82 IMMUNIZATIONS No Known Immunizations SOCIAL HISTORY Never Assessed REASON FOR VISIT PLAN OF CARE VITAL SIGNS MEDICATIONS Unknown Medications RESULTS No Results PROCEDURES No Known procedures INSTRUCTIONS MEDICATIONS ADMINISTERED No Known Medications MEDICAL (GENERAL) HISTORY Type Description Date Medical History gastritis Medical History thrombotic trombocytopenic purpura Surgical History 2011
--- OUTSIDE RECORDS SUMMARY | 2018-07-14 06:54 | XMS REPORT ---
Author Author JOSEY PEGGY [facility] Address [address] [place] [address] Care Team Providers Care Light Industrial Name Role Phone DOWLINGPEGGY Mayberry Unavailable PROBLEMS Type Condition ICD9-CM Code [id number] Code Onset Dates Condition Status SNOMED Code Problem Thrombocytopenia D69.6 Active 305498798 Problem Chronic ITP (idiopathic thrombocytopenic purpura) D69.3 Active 547221533 Problem Other iron deficiency anemia D50.8 Active 61164416 Problem Chronic fatigue R53.82 Active 74663289 Problem Missed period N92.6 Active 71309369 Problem Platelet disorder D69.1 Active 07590999 ALLERGIES No Information ENCOUNTERS Encounter Location Date Diagnosis [place] [id number] [place] [address] 53699- 4992 Jan, [facility] [id number] [place] [address] 57147- 1276 Jan, [place] [id number] [place] [address] 12256- 5099 Jan, Chronic ITP (idiopathic thrombocytopenic purpura) D69.3 and Third trimester Z34.93 [place] [id number] [place] [address] 66678- 5680 Dec, Third trimester Z34.93 and Chronic ITP ( idiopathic thrombocytopenic purpura) D69.3 [facility] [id number] [place] [address] 96079- 6528 Dec, [place] [id number] [place] [address] 31569- 6460 Dec, [facility] [id number] [place] [address] 45619- 2495 Dec, Dysuria R30.0 [facility] [address] [place] [address]- 1867 Dec, [facility] [address] [place] [address]- 0348 Nov, [facility] [address] [place] [address]- 9780 Nov, [facility] [address] [place] [address], [place] [address]- 4301 Nov, [facility] [id number] [place] [address]- 3792 Nov, [facility] [address] [place] [address]- 3766 Oct, [facility] [address] [place] [address]- 6776 Oct, [facility] [address] [address]- 3448 September, [facility] [address] [place] [address]- 7677 Aug, [facility] [address] [address]- 8011 Aug, [facility] [address], [place] [address]- 7160 Jul, Normal in multigravida Z34.80 ; 13 weeks gestation of Z3A.13 and Previous section complicating O34.219 [facility] [address] [place] [address]- 1710 Jul, Thrombocytopenia D69.6 [facility] [address] [address]- 9427 16 Jul, 2017 Other specified related conditions, first trimester O26.891 and Dysuria R30.0 [facility] [address] [address]- 8693 Jul, Thrombocytopenia D69.6 [place] [address] [address]- 5601 Jul, [place] [id number] [place] [address] 15267- 4994 Jun, [place] [id number] [place] [address] 60229- 0513 Jun, [place] [id number] [place] [address] 72408- 6990 Jun, Normal in multigravida Z34.80 ; 9 weeks gestation of Z3A.09 ; Previous section complicating O34.219 and Chronic ITP (idiopathic thrombocytopenic purpura) D69.3 [place] [id number] [place] [address] 02520- 1949 May, Missed period N92.6 ; Dysuria R30.0 ; Positive test Z32.01 ; First trimester Z34.90 and History of Z98.891 [place] [id number] [place] [address] 20792- 7297 May, [place] [id number] [place] [address] 87103- 0412 May, Other iron deficiency anemia D50.8 and Platelet disorder D69.1 [place] [id number] [place] [address] 29050- 3109 May, Encounter for test Z32.00 [place] [address], [place] [address]- 5244 Apr, [place] [id number] [place] [address] 30282- 1426 Apr, [place] [id number] [place] [address] 74585- 6783 Mar, Chronic fatigue R53.82 IMMUNIZATIONS No Known Immunizations SOCIAL HISTORY Never Assessed REASON FOR VISIT blood in urine -- mzaldana, ma, BP - 106/68 T- 98.6 PLAN OF CARE VITAL SIGNS MEDICATIONS Unknown Medications RESULTS Name Result Date Reference Range UA LONG DIP (IN HOUSE) 2017-12-23 Lot # Exp date [id number] Clarity cloudy Color blood red Odor yes GLU neg MARLENY 1+ KET neg SG 1.025 BLO 3+ pH 8.5 Protein 2+ URO 1.0 NIT neg EDDIE trace Lot # Exp date PROCEDURES Procedure Date Ordered Result Body Site URINALYSIS, AUTO, W/O SCOPE Dec 23, 2017 URINE CULTURE/COLONY COUNT Dec 23, 2017 INSTRUCTIONS MEDICATIONS ADMINISTERED No Known Medications MEDICAL (GENERAL) HISTORY Type Description Date Medical History gastritis Medical History thrombotic trombocytopenic purpura Surgical History 2012
--- OUTSIDE RECORDS SUMMARY | 2018-07-14 06:54 | XMS REPORT ---
Author Author KARINA OLIVERA [facility] Address [address] [place] [address] Care Team Providers Care Technical Operations Specialist Name Role Phone KARINA OLIVERA Unavailable PROBLEMS Type Condition ICD9-CM Code [id number] Code Onset Dates Condition Status SNOMED Code Problem Thrombocytopenia D69.6 Active 194691699 Problem Chronic ITP (idiopathic thrombocytopenic purpura) D69.3 Active 866905575 Problem Other iron deficiency anemia D50.8 Active 25532036 Problem Chronic fatigue R53.82 Active 07233977 Problem Missed period N92.6 Active 05835655 Problem Platelet disorder D69.1 Active 70293024 ALLERGIES No Information ENCOUNTERS Encounter Location Date Diagnosis [facility] [id number] [place] [address] 13537- 7577 Jan, [facility] [id number] [place] [address] 38521- 0102 Jan, [place] [id number] [place] [address] 66433- 4705 Jan, [place] [address] [address] 4887 Jan, Chronic ITP (idiopathic thrombocytopenic purpura) D69.3 and Third trimester Z34.93 [facility] [address] [address] 3606 Dec, Third trimester Z34.93 and Chronic ITP ( idiopathic thrombocytopenic purpura) D69.3 [facility] [id number] [place] [address] 06817- 1588 Dec, [place] [id number] [place] [address] 31241- 7200 Dec, [place] [address] [address]- 4575 Dec, Dysuria R30.0 [facility] [id number] [place] [address]- 6372 Dec, [facility] [address] [place] [address]- 0274 Nov, [facility] [id number] [place] [address], [place] [address]- 3610 Nov, [facility] [address] [place] [address]- 5158 Nov, [facility] [address] [place] [address]- 5339 Nov, [facility] [address] [address]- 3598 Oct, [facility] [address] [address]- 5265 Oct, [facility] [address] [address]- 5413 September, [facility] [address] [address]- 6869 Aug, [facility] [address] [address]- 3255 Aug, [facility] [address] [address]- 5489 Jul, Normal in multigravida Z34.80 ; 13 weeks gestation of Z3A.13 and Previous section complicating O34.219 [facility] [address] [address]- 6996 Jul, Thrombocytopenia D69.6 [facility] [address] [address]- 7772 Jul, Other specified related conditions, first trimester O26.891 and Dysuria R30.0 [place] [id number] [place] [address] 66542- 4926 Jul, Thrombocytopenia D69.6 [place] [id number] [place] [address] 84493- 9452 Jul, [place] [id number] [place] [address] 18971- 0968 Jun, [place] [address] 60908- 2044 Jun, [place] [address] 76141- 2694 Jun, Normal in multigravida Z34.80 ; 9 weeks gestation of Z3A.09 ; Previous section complicating O34.219 and Chronic ITP (idiopathic thrombocytopenic purpura) D69.3 [place] [id number] [place] [address] 14219- 6345 May, Missed period N92.6 ; Dysuria R30.0 ; Positive test Z32.01 ; First trimester Z34.90 and History of Z98.891 [place] [id number] [place] [address] 48241- 9305 May, [place] [id number] [place] [address] 51962- 5675 May, Other iron deficiency anemia D50.8 and Platelet disorder D69.1 [place] [id number] [place] [address] 00333- 2311 May, Encounter for test Z32.00 [place] [address] 66512- 5779 Apr, [place] [id number] [place] [address] 15250- 7936 Apr, [place] [address] 96006- 0338 Mar, Chronic fatigue R53.82 IMMUNIZATIONS No Known Immunizations SOCIAL HISTORY Never Assessed REASON FOR VISIT PLAN OF CARE VITAL SIGNS MEDICATIONS Unknown Medications RESULTS Name Result Date Reference Range Biophysical Profile () w/ NST 2018-01-20 PROCEDURES No Known procedures INSTRUCTIONS MEDICATIONS ADMINISTERED No Known Medications MEDICAL (GENERAL) HISTORY Type Description Date Medical History gastritis Medical History thrombotic trombocytopenic purpura Surgical History 2012
--- OUTSIDE RECORDS SUMMARY | 2018-07-14 06:54 | XMS REPORT ---
Author Author KARINA OLIVERA Organization [facility] Address [address] [place] [address] Care Team Providers Care Feeder Catcher Tobacco Name Role Phone KARINA OLIVERA Unavailable PROBLEMS Type Condition ICD9-CM Code BPS24-GG Code Onset Dates Condition Status SNOMED Code Problem Thrombocytopenia D69.6 Active 034028453 Problem Chronic ITP (idiopathic thrombocytopenic purpura) D69.3 Active 751806771 Problem Other iron deficiency anemia D50.8 Active 18129450 Problem Chronic fatigue R53.82 Active 05561727 Problem Missed period N92.6 Active 76775008 Problem Platelet disorder D69.1 Active 71330975 ALLERGIES No Information ENCOUNTERS Encounter Location Date Diagnosis [facility] [id number] [place] [address] 06625- 1457 Jan, [facility] [id number] [place] [address] 52907- 7945 Jan, [place] [id number] [place] [address] 02051- 1719 Jan, Chronic ITP (idiopathic thrombocytopenic purpura) D69.3 and Third trimester Z34.93 [facility] [id number] [place] [address] 57261- 4723 Dec, Third trimester Z34.93 and Chronic ITP ( idiopathic thrombocytopenic purpura) D69.3 [facility] [id number] [place] [address] 24076- 0285 Dec, [place] [id number] [place] [address] 40824- 4853 Dec, [facility] [id number] [place] [address] 61717- 3778 Dec, Dysuria R30.0 [facility] [id number] [place] [place] [address]- 1235 Dec, [facility] [id number] [place] [place] [address]- 6074 Nov, [facility] [id number] [place] [place] [address]- 3231 Nov, [facility] [address] [place] [address], [place] [address]- 1542 Nov, [facility] [id number] [place] [place] [address]- 1513 Nov, [facility] [address] [place] [place] [address]- 1216 Oct, [facility] [id number] [place] [place] [address]- 4556 Oct, [facility] [address] [address]- 7151 September, [facility] [id number] [place] [place] [address]- 6666 Aug, [facility] [address], [place] [address]- 2188 Aug, [facility] [address], [place] [address]- 2824 Jul, Normal in multigravida Z34.80 ; 13 weeks gestation of Z3A.13 and Previous section complicating O34.219 [facility] [address] [place] [place] [address]- 1696 Jul, Thrombocytopenia D69.6 [facility] [address] [address]- 0997 16 Jul, 2017 Other specified related conditions, first trimester O26.891 and Dysuria R30.0 [facility] [address], [place] [address]- 2809 Jul, Thrombocytopenia D69.6 [place] [address] [address]- 4979 Jul, [place] [id number] [place] [address] 71932- 3687 Jun, [place] [id number] [place] [address] 33165- 3605 Jun, [place] [id number] [place] [address] 43488- 5131 Jun, Normal in multigravida Z34.80 ; 9 weeks gestation of Z3A.09 ; Previous section complicating O34.219 and Chronic ITP (idiopathic thrombocytopenic purpura) D69.3 [place] [id number] [place] [address] 37981- 5305 May, Missed period N92.6 ; Dysuria R30.0 ; Positive test Z32.01 ; First trimester Z34.90 and History of Z98.891 [place] [id number] [place] [address] 23353- 8135 May, [place] [id number] [place] [address] 18085- 4112 May, Other iron deficiency anemia D50.8 and Platelet disorder D69.1 [place] [id number] [place] [address] 73665- 6803 May, Encounter for test Z32.00 [place] [id number] [place] [address] 53986- 8355 Apr, [place] [id number] [place] [address] 89236- 9804 Apr, [place] [id number] [place] [address] 66204- 8073 Mar, Chronic fatigue R53.82 IMMUNIZATIONS No Known Immunizations SOCIAL HISTORY Never Assessed REASON FOR VISIT PLAN OF CARE VITAL SIGNS MEDICATIONS Unknown Medications RESULTS No Results PROCEDURES No Known procedures INSTRUCTIONS MEDICATIONS ADMINISTERED No Known Medications MEDICAL (GENERAL) HISTORY Type Description Date Medical History gastritis Medical History thrombotic trombocytopenic purpura Surgical History 2012
--- OUTSIDE RECORDS SUMMARY | 2018-07-14 06:54 | XMS REPORT ---
Author Author KARINA OLIVERA Organization [facility] Address [address] [place] [address] Care Team Providers Care Riprap Worker Name Role Phone KARINA OLIVERA Unavailable PROBLEMS Type Condition ICD9-CM Code [id number] Code Onset Dates Condition Status SNOMED Code Problem Thrombocytopenia D69.6 Active 942598489 Problem Chronic ITP (idiopathic thrombocytopenic purpura) D69.3 Active 588663022 Problem Other iron deficiency anemia D50.8 Active 27745405 Problem Chronic fatigue R53.82 Active 11767132 Problem Missed period N92.6 Active 14490799 Problem Platelet disorder D69.1 Active 77708100 ALLERGIES No Information ENCOUNTERS Encounter Location Date Diagnosis [facility] [address] [place] [address] 13652- 0307 Jan, [facility] [id number] [place] [address] 24959- 9119 Jan, Chronic ITP (idiopathic thrombocytopenic purpura) D69.3 and Third trimester Z34.93 [facility] [address], [place] [address]- 5465 Dec, Third trimester Z34.93 and Chronic ITP ( idiopathic thrombocytopenic purpura) D69.3 [facility] [address] [place] [address] 91696- 8391 Dec, [facility] [id number] [place] [address] 97192- 5993 Dec, [facility] [id number] [place] [address] 01945- 8037 Dec, Dysuria R30.0 [facility] [id number] [place] [address] 07854- 6225 Dec, [facility] [address], [place] [address]- 2370 Nov, [facility] [address], [place] [address]- 9573 Nov, [facility] [address], [place] [address]- 4094 Nov, [facility] [id number] [place] [address] 51704- 0503 Nov, [facility] [address], [place] [address]- 8650 Oct, [facility] [address] [place] [address] 06079- 8402 Oct, [facility] [address] [place] [address] 71095- 1935 September, [facility] [address] [place] [address] 92822- 2096 Aug, [facility] [address], [place] [address]- 5153 Aug, [facility] [address], [place] [address]- 3764 Jul, Normal in multigravida Z34.80 ; 13 weeks gestation of Z3A.13 and Previous section complicating O34.219 [facility] [address], [place] [address]- 0483 Jul, Thrombocytopenia D69.6 [facility] [address], [place] [address]- 4610 Jul, Other specified related conditions, first trimester O26.891 and Dysuria R30.0 [facility] [address], [place] [address]- 0498 Jul, Thrombocytopenia D69.6 [facility] [id number] [place] [address] 90996- 9081 Jul, [place] [address], [place] [address]- 6360 Jun, [place] [id number] [place] [address] 38475- 3437 Jun, [place] [id number] [place] [address] 17791- 6683 Jun, Normal in multigravida Z34.80 ; 9 weeks gestation of Z3A.09 ; Previous section complicating O34.219 and Chronic ITP (idiopathic thrombocytopenic purpura) D69.3 [place] [id number] [place] [address] 87287- 6742 31 May, 2017 Missed period N92.6 ; Dysuria R30.0 ; Positive test Z32.01 ; First trimester Z34.90 and History of Z98.891 [place] [id number] [place] [address] 79748- 8820 May, [place] [id number] [place] [address] 02988- 7073 May, Other iron deficiency anemia D50.8 and Platelet disorder D69.1 [place] [id number] [place] [address] 14180- 8255 16 May, 2017 Encounter for test Z32.00 [place] [address] [place] [address] 83949- 9432 Apr, [place] [address] [place] [address] 37981- 5693 Apr, [place] [id number] [place] [address] 54202- 9251 Mar, Chronic fatigue R53.82 IMMUNIZATIONS No Known Immunizations SOCIAL HISTORY Never Assessed REASON FOR VISIT PLAN OF CARE VITAL SIGNS MEDICATIONS Unknown Medications RESULTS No Results PROCEDURES No Known procedures INSTRUCTIONS MEDICATIONS ADMINISTERED No Known Medications MEDICAL (GENERAL) HISTORY Type Description Date Medical History gastritis Medical History thrombotic trombocytopenic purpura Surgical History 2012
--- OUTSIDE RECORDS SUMMARY | 2018-07-14 06:54 | XMS REPORT ---
Author Author JOSEY PEGGY [facility] Address [address] [place] [address] Care Team Providers Care Clipman Name Role Phone DOWLINGPEGGY Mayberry Unavailable PROBLEMS Type Condition ICD9-CM Code [id number] Code Onset Dates Condition Status SNOMED Code Problem Thrombocytopenia D69.6 Active 185508745 Problem Chronic ITP (idiopathic thrombocytopenic purpura) D69.3 Active 304847699 Problem Other iron deficiency anemia D50.8 Active 94932443 Problem Chronic fatigue R53.82 Active 37986966 Problem Missed period N92.6 Active 20236667 Problem Platelet disorder D69.1 Active 59458763 ALLERGIES No Information ENCOUNTERS Encounter Location Date Diagnosis [place] [id number] [place] [address] 05675- 2889 Jan, [facility] [id number] [place] [address] 92863- 2367 Jan, [place] [id number] [place] [address] 81574- 1951 Jan, Chronic ITP (idiopathic thrombocytopenic purpura) D69.3 and Third trimester Z34.93 [place] [id number] [place] [address] 88085- 6702 Dec, Third trimester Z34.93 and Chronic ITP ( idiopathic thrombocytopenic purpura) D69.3 [facility] [id number] [place] [address] 12725- 7634 Dec, [place] [id number] [place] [address] 95027- 8054 Dec, [facility] [id number] [place] [address] 59389- 9443 Dec, Dysuria R30.0 [facility] [address] [place] [address]- 1550 Dec, [facility] [address] [place] [address]- 6326 Nov, [facility] [address] [place] [address]- 8599 Nov, [facility] [id number] [place] [address], [place] [address]- 2705 Nov, [facility] [id number] [place] [address]- 3996 Nov, [facility] [address] [place] [address]- 9193 Oct, [facility] [address] [place] [address]- 5317 Oct, [facility] [address] [address]- 1233 September, [facility] [address] [place] [address]- 3818 Aug, [facility] [address], [place] [address]- 5750 Aug, [facility] [address] [address]- 8587 Jul, Normal in multigravida Z34.80 ; 13 weeks gestation of Z3A.13 and Previous section complicating O34.219 [facility] [address] [place] [address]- 0824 Jul, Thrombocytopenia D69.6 [facility] [address] [address]- 5523 16 Jul, 2017 Other specified related conditions, first trimester O26.891 and Dysuria R30.0 [facility] [address] [address]- 6391 Jul, Thrombocytopenia D69.6 [place] [address] [address]- 2239 Jul, [place] [id number] [place] [address] 15096- 3565 Jun, [place] [id number] [place] [address] 74551- 3409 Jun, [place] [id number] [place] [address] 82777- 5192 Jun, Normal in multigravida Z34.80 ; 9 weeks gestation of Z3A.09 ; Previous section complicating O34.219 and Chronic ITP (idiopathic thrombocytopenic purpura) D69.3 [place] [id number] [place] [address] 51047- 3370 May, Missed period N92.6 ; Dysuria R30.0 ; Positive test Z32.01 ; First trimester Z34.90 and History of Z98.891 [place] [id number] [place] [address] 65389- 6876 May, [place] [id number] [place] [address] 77931- 7984 May, Other iron deficiency anemia D50.8 and Platelet disorder D69.1 [place] [address] [place] [address] 45877- 5165 May, Encounter for test Z32.00 [place] [address] [address]- 2665 Apr, [place] [id number] [place] [address] 97443- 3853 Apr, [place] [address] [place] [address] 81586- 3702 Mar, Chronic fatigue R53.82 IMMUNIZATIONS No Known Immunizations SOCIAL HISTORY Never Assessed REASON FOR VISIT blood in the urine PLAN OF CARE VITAL SIGNS MEDICATIONS Unknown Medications RESULTS No Results PROCEDURES No Known procedures INSTRUCTIONS MEDICATIONS ADMINISTERED No Known Medications MEDICAL (GENERAL) HISTORY Type Description Date Medical History gastritis Medical History thrombotic trombocytopenic purpura Surgical History 2012
--- OUTSIDE RECORDS SUMMARY | 2018-07-14 06:54 | XMS REPORT ---
Author Author KARINA OLIVERA [facility] Address [address] [place] [address] Care Team Providers Care Careers Counsellor Name Role Phone KARINA OLIVERA Unavailable PROBLEMS Type Condition ICD9-CM Code CTB46-NH Code Onset Dates Condition Status SNOMED Code Problem Thrombocytopenia D69.6 Active 645632045 Problem Chronic ITP (idiopathic thrombocytopenic purpura) D69.3 Active 987712445 Problem Other iron deficiency anemia D50.8 Active 19075794 Problem Chronic fatigue R53.82 Active 94859271 Problem Missed period N92.6 Active 33749886 Problem Platelet disorder D69.1 Active 18906226 ALLERGIES No Information ENCOUNTERS Encounter Location Date Diagnosis [facility], [place] [id number] [place] [address] 63980- 4805 Jan, [facility], [place] [id number] [place] [address] 71835- 7437 Jan, [place] [id number] [place] [address] 64173- 0913 Jan, [place] [address], [place] [address] 5486 Jan, Chronic ITP (idiopathic thrombocytopenic purpura) D69.3 and Third trimester Z34.93 [facility], [place] [address], [place] [address] 6757 Dec, Third trimester Z34.93 and Chronic ITP ( idiopathic thrombocytopenic purpura) D69.3 [facility], [place] [id number] [place] [address] 06685- 9839 Dec, [place] [id number] [place] [address] 95116- 9473 Dec, [place] [address], [place] [address]- 4361 Dec, Dysuria R30.0 [facility], [place] [id number] [place] [address]- 1043 Dec, [facility], [place] [id number] [place] [address]- 5378 Nov, [facility], [place] [id number] [place] [address], [place] [address]- 0487 Nov, [facility], [place] [id number] [place] [address]- 3302 Nov, [facility], [place] [id number] [place] [address]- 3746 Nov, [facility], [place] [address], [place] [address]- 3386 Oct, [facility], [place] [address], [place] [address]- 3165 Oct, [facility], [place] [address], [place] [address] 3902 September, [facility], [place] [address], [place] [address]- 1516 Aug, [facility], [place] [address], [place] [address]- 6153 Aug, [facility], [place] [address], [place] [address]- 1564 Jul, Normal in multigravida Z34.80 ; 13 weeks gestation of Z3A.13 and Previous section complicating O34.219 [facility], [place] [address], [place] [address]- 4636 Jul, Thrombocytopenia D69.6 [facility], [place] [address], [place] [address]- 8002 Jul, Other specified related conditions, first trimester O26.891 and Dysuria R30.0 [place] [id number] [place] [address] 43805- 2120 Jul, Thrombocytopenia D69.6 [place] [id number] [place] [address] 89641- 8460 Jul, [place] [id number] [place] [address] 83413- 7721 Jun, [place] [address] 9[address]71- 1987 Jun, [place] [address] 30680- 7355 Jun, Normal in multigravida Z34.80 ; 9 weeks gestation of Z3A.09 ; Previous section complicating O34.219 and Chronic ITP (idiopathic thrombocytopenic purpura) D69.3 [place] [id number] [place] [address] 58747- 8903 May, Missed period N92.6 ; Dysuria R30.0 ; Positive test Z32.01 ; First trimester Z34.90 and History of Z98.891 [place] [id number] [place] [address] 56679- 2648 May, [place] [id number] [place] [address] 37235- 9825 May, Other iron deficiency anemia D50.8 and Platelet disorder D69.1 [place] [id number] [place] [address] 40005- 0730 May, Encounter for test Z32.00 [place] [address] 95425- 3381 Apr, [place] [id number] [place] [address] 33456- 0260 Apr, [place] [address] 57489- 8861 Mar, Chronic fatigue R53.82 IMMUNIZATIONS No Known Immunizations SOCIAL HISTORY Never Assessed REASON FOR VISIT US order PLAN OF CARE VITAL SIGNS MEDICATIONS Unknown Medications RESULTS Name Result Date Reference Range Biophysical Profile () w/ NST 2018-01-26 PROCEDURES No Known procedures INSTRUCTIONS MEDICATIONS ADMINISTERED No Known Medications MEDICAL (GENERAL) HISTORY Type Description Date Medical History gastritis Medical History thrombotic trombocytopenic purpura Surgical History 2012
--- OUTSIDE RECORDS SUMMARY | 2018-07-14 06:54 | XMS REPORT ---
Author Author KARINA OLIVERA [facility] Address [address] [place] [address] Care Team Providers Care Grind Operator Name Role Phone KARINA OLIVERA Unavailable PROBLEMS Type Condition ICD9-CM Code NDZ32-LA Code Onset Dates Condition Status SNOMED Code Problem Thrombocytopenia D69.6 Active 010425904 Problem Chronic ITP (idiopathic thrombocytopenic purpura) D69.3 Active 875742817 Problem Other iron deficiency anemia D50.8 Active 27194696 Problem Chronic fatigue R53.82 Active 39332573 Problem Missed period N92.6 Active 19551404 Problem Platelet disorder D69.1 Active 60367833 ALLERGIES No Information ENCOUNTERS Encounter Location Date Diagnosis [place] [id number] [place] [address] 32945- 2549 Feb, [place] [id number] [place] [address] 10259- 6615 Jan, [place] [id number] [place] [address] 04487- 7475 Jan, [place] [id number] [place] [address] 77605- 4723 Jan, [place] [id number] [place] [address] 75777- 8562 05 Jan, 2018 Chronic ITP (idiopathic thrombocytopenic purpura) D69.3 and Third trimester Z34.93 [place] [id number] [place] [address] 14618- 4875 Jan, [place] [id number] [place] [address] 23004- 8903 Dec, Third trimester Z34.93 and Chronic ITP ( idiopathic thrombocytopenic purpura) D69.3 [place] [address] [facility] [id number] [place] [address]- 4909 Dec, [facility] [id number] [address]- 4702 Dec, [facility] [address] [place] [address]- 8076 Dec, Dysuria R30.0 [facility] [address] [facility] [id number] [place] [address]- 0313 Dec, [facility] [address] [facility] [id number] [place] [address]- 7804 Nov, [facility] [address] [place] [address]- 7098 Nov, [facility] [address] [place] [address]- 2532 Nov, [facility] [address] [place] [address]- 4501 Nov, [facility] [address] [place] [address]- 8502 Oct, [facility] [address], [place] [address]- 2939 Oct, [facility] [address], [place] [address]- 6352 September, [facility] [address], [place] [address]- 0044 Aug, [facility] [id number], [place] [address]- 2342 Aug, [facility] [address], [place] [address]- 1291 Jul, Normal in multigravida Z34.80 ; 13 weeks gestation of Z3A.13 and Previous section complicating O34.219 [facility] [address] [place] [address] 07606- 0912 Jul, Thrombocytopenia D69.6 [place] [id number] [place] [address] 38051- 3367 Jul, Other specified related conditions, first trimester O26.891 and Dysuria R30.0 [place] [id number] [place] [address] 25200- 2644 Jul, Thrombocytopenia D69.6 [place] [id number] [place] [address] 62178- 5604 Jul, [place] [id number] [place] [address] 81427- 4178 Jun, [place] [id number] [place] [address] 44082- 3801 Jun, [place] [id number] [place] [address] 88584- 4549 Jun, Normal in multigravida Z34.80 ; 9 weeks gestation of Z3A.09 ; Previous section complicating O34.219 and Chronic ITP (idiopathic thrombocytopenic purpura) D69.3 [place] [id number] [place] [address] 39279- 7851 May, Missed period N92.6 ; Dysuria R30.0 ; Positive test Z32.01 ; First trimester Z34.90 and History of Z98.891 [place] [id number] [place] [address] 39730- 3902 May, [place] [id number] [place] [address] 06975- 8842 May, Other iron deficiency anemia D50.8 and Platelet disorder D69.1 [place] [id number] [place] [address] 54985- 5105 May, Encounter for test Z32.00 [place] [id number] [place] [address] 22936- 1976 Apr, [facility] [address] [facility] [id number] [place] [address]- 2546 Apr, [facility] [address] [facility] [id number] [place] [address]- 2546 Mar, Chronic fatigue R53.82 IMMUNIZATIONS No Known Immunizations SOCIAL HISTORY Never Assessed REASON FOR VISIT PLAN OF CARE VITAL SIGNS MEDICATIONS Unknown Medications RESULTS No Results PROCEDURES No Known procedures INSTRUCTIONS MEDICATIONS ADMINISTERED No Known Medications MEDICAL (GENERAL) HISTORY Type Description Date Medical History gastritis Medical History thrombotic trombocytopenic purpura Surgical History 2012
--- OUTSIDE RECORDS SUMMARY | 2018-07-14 06:54 | XMS REPORT ---
Author Author JOSEY PEGGY [facility] Address [address] [place] [address] Care Team Providers Care Raise Miner Name Role Phone DOWLINGPEGGY [place] Unavailable PROBLEMS Type Condition ICD9-CM Code HWP51-JH Code Onset Dates Condition Status SNOMED Code Problem Thrombocytopenia D69.6 Active 194532846 Problem Chronic ITP (idiopathic thrombocytopenic purpura) D69.3 Active 796434068 Problem Other iron deficiency anemia D50.8 Active 99482967 Problem Chronic fatigue R53.82 Active 92652941 Problem Missed period N92.6 Active 55505032 Problem Platelet disorder D69.1 Active 34898896 ALLERGIES No Information ENCOUNTERS Encounter Location Date Diagnosis [place] [id number] [place] [address] 77514- 8054 Jan, [facility] [id number] [place] [address] 99036- 0904 Jan, [place] [id number] [place] [address] 95631- 7207 Jan, Chronic ITP (idiopathic thrombocytopenic purpura) D69.3 and Third trimester Z34.93 [place] [id number] [place] [address] 11875- 4280 Dec, Third trimester Z34.93 and Chronic ITP ( idiopathic thrombocytopenic purpura) D69.3 [facility] [id number] [place] [address] 86749- 2653 Dec, [place] [id number] [place] [address] 68113- 9302 Dec, [facility] [id number] [place] [address] 06625- 7957 Dec, Dysuria R30.0 [facility] [address] [place] [address]- 2618 Dec, [facility] [id number] [place] [address]- 0079 Nov, [facility] [id number] [place] [address]- 7327 Nov, [facility] [id number] [place] [address], [place] [address]- 0355 Nov, [facility] [address] [place] [id number] [place] [address]- 7032 Nov, [facility] [address] [place] [address]- 8585 Oct, [facility] [id number] [place] [address]- 9346 Oct, [facility] [address] [address]- 0912 September, [facility] [id number] [place] [address]- 3238 Aug, [facility] [address] [address]- 0755 Aug, [facility] [address] [address]- 2211 Jul, Normal in multigravida Z34.80 ; 13 weeks gestation of Z3A.13 and Previous section complicating O34.219 [facility] [address] [place] [address]- 0328 Jul, Thrombocytopenia D69.6 [facility] [address] [address]- 0419 16 Jul, 2017 Other specified related conditions, first trimester O26.891 and Dysuria R30.0 [facility] [address] [address]- 0520 Jul, Thrombocytopenia D69.6 [place] [address] [address]- 7806 Jul, [place] [id number] [place] [address] 62988- 8030 Jun, [place] [id number] [place] [address] 19248- 9449 Jun, [place] [id number] [place] [address] 15925- 9991 Jun, Normal in multigravida Z34.80 ; 9 weeks gestation of Z3A.09 ; Previous section complicating O34.219 and Chronic ITP (idiopathic thrombocytopenic purpura) D69.3 [place] [id number] [place] [address] 92103- 4859 May, Missed period N92.6 ; Dysuria R30.0 ; Positive test Z32.01 ; First trimester Z34.90 and History of Z98.891 [place] [id number] [place] [address] 22733- 2927 May, [place] [id number] [place] [address] 03267- 3846 May, Other iron deficiency anemia D50.8 and Platelet disorder D69.1 [place] [id number] [place] [address] 72061- 9007 May, Encounter for test Z32.00 [place] [address] [address]- 0816 Apr, [place] [id number] [place] [address] 47841- 8992 Apr, [place] [id number] [place] [address] 96745- 0621 Mar, Chronic fatigue R53.82 IMMUNIZATIONS No Known Immunizations SOCIAL HISTORY Never Assessed REASON FOR VISIT Rx from lab results PLAN OF CARE VITAL SIGNS MEDICATIONS Medication Instructions Dosage Frequency Start Date End Date Duration Status Keflex 500 mg Orally every 12 hrs 1 capsule 12h Dec, Dec, 07 days Active RESULTS No Results PROCEDURES No Known procedures INSTRUCTIONS MEDICATIONS ADMINISTERED No Known Medications MEDICAL (GENERAL) HISTORY Type Description Date Medical History gastritis Medical History thrombotic trombocytopenic purpura Surgical History 2012
--- OUTSIDE RECORDS SUMMARY | 2018-07-14 06:54 | XMS REPORT ---
Author Author KARINA OLIVERA [facility] Address [address] [place] [address] Care Team Providers Care Auto Driver Name Role Phone KARINA OLIVERA Unavailable PROBLEMS Type Condition ICD9-CM Code PTD98-JL Code Onset Dates Condition Status SNOMED Code Problem Thrombocytopenia D69.6 Active 005923438 Problem Chronic ITP (idiopathic thrombocytopenic purpura) D69.3 Active 357187918 Problem Other iron deficiency anemia D50.8 Active 57924970 Problem Chronic fatigue R53.82 Active 24977368 Problem Missed period N92.6 Active 39563858 Problem Platelet disorder D69.1 Active 74950674 ALLERGIES No Information ENCOUNTERS Encounter Location Date Diagnosis [place] [address] 99781- 3339 Jan, Chronic ITP (idiopathic thrombocytopenic purpura) D69.3 and Third trimester Z34.93 [facility] [id number] [place] [address] 34410- 8805 Dec, Third trimester Z34.93 and Chronic ITP ( idiopathic thrombocytopenic purpura) D69.3 [place] [id number] [place] [address] 20028- 8530 Dec, [facility] [id number] [place] [address] 41874- 1778 Dec, [facility] [address] 34653- 4664 Dec, Dysuria R30.0 [facility] [id number] [place] [address] 85370- 6466 Dec, [place] [address] 45832- 8582 Nov, [facility] [address], [place] [address]- 8581 Nov, [facility] [address], [place] [address]- 2162 Nov, [facility] [address], [place] [address]- 3281 Nov, [facility] [id number] [place] [address] 08565- 4261 Oct, [facility] [id number] [place] [address] 27004- 2476 Oct, [facility] [id number] [place] [address] 49995- 9495 September, [facility] [id number] [place] [address] 59329- 5754 Aug, [facility] [id number] [place] [address] 80551- 3015 Aug, [facility] [id number] [place] [address] 58525- 2619 Jul, Normal in multigravida Z34.80 ; 13 weeks gestation of Z3A.13 and Previous section complicating O34.219 [facility] [address], [place] [address]- 3790 Jul, Thrombocytopenia D69.6 [facility] [id number] [place] [address] 68031- 1060 Jul, Other specified related conditions, first trimester O26.891 and Dysuria R30.0 [facility] [id number] [place] [address] 29047- 5171 Jul, Thrombocytopenia D69.6 [facility] [address], [place] [address]- 3681 Jul, [facility] [id number] [place] [address] 04044- 0616 Jun, [place] [id number] [place] [address] 90228- 1026 Jun, [place] [id number] [place] [address] 15795- 5748 Jun, Normal in multigravida Z34.80 ; 9 weeks gestation of Z3A.09 ; Previous section complicating O34.219 and Chronic ITP (idiopathic thrombocytopenic purpura) D69.3 [place] [id number] [place] [address] 17402- 9408 May, Missed period N92.6 ; Dysuria R30.0 ; Positive test Z32.01 ; First trimester Z34.90 and History of Z98.891 [place] [id number] [address]- 0357 May, [place] [id number] [place] [address] 84867- 4875 May, Other iron deficiency anemia D50.8 and Platelet disorder D69.1 [place] [id number] [place] [address] 89414- 3287 16 May, 2017 Encounter for test Z32.00 [place] [id number] [place] [address] 41896- 1284 Apr, [place] [id number] [place] [address] 59613- 1322 Apr, [place] [id number] [place] [address] 23048- 9373 Mar, Chronic fatigue R53.82 IMMUNIZATIONS No Known Immunizations SOCIAL HISTORY Never Assessed REASON FOR VISIT PLAN OF CARE VITAL SIGNS MEDICATIONS Unknown Medications RESULTS No Results PROCEDURES No Known procedures INSTRUCTIONS MEDICATIONS ADMINISTERED No Known Medications MEDICAL (GENERAL) HISTORY Type Description Date Medical History gastritis Medical History thrombotic trombocytopenic purpura Surgical History 2011
--- OUTSIDE RECORDS SUMMARY | 2018-07-14 06:55 | XMS REPORT ---
Author Author INDIO TESFAYE Organization [facility], [place] Address [address] [place] [address] Care Team Providers Care Spare Hand Carding Name Role Phone INDIO TESFAYE Unavailable PROBLEMS Type Condition ICD9-CM Code BJR78-DM Code Onset Dates Condition Status SNOMED Code Problem Thrombocytopenia D69.6 Active 711245114 Problem Chronic ITP (idiopathic thrombocytopenic purpura) D69.3 Active 367145888 Problem Other iron deficiency anemia D50.8 Active 60274175 Problem Chronic fatigue R53.82 Active 14347081 Problem Missed period N92.6 Active 26158881 Problem Platelet disorder D69.1 Active 82385134 ALLERGIES No Information ENCOUNTERS Encounter Location Date Diagnosis [facility] [place] [id number] [place] [address] 78700- 9182 Dec, Third trimester Z34.93 and Chronic ITP ( idiopathic thrombocytopenic purpura) D69.3 [facility] [place] [id number] [place] [address] 55518- 6434 Dec, [facility] [place] [id number] [place] [address] 66504- 8349 Dec, [facility] [place] [id number] [place] [address] 48660- 6092 Dec, Dysuria R30.0 [facility] [place] [address] [place] [address] 75919- 3219 Dec, [facility] [place] [id number] [place] [address] 98104- 0697 Nov, [facility] [place] [id number] [place] [address] 47384- 3948 Nov, [facility] [place] [id number] [place] [address] 46654- 9393 Nov, [facility] [place] [address] [address]- 9865 Nov, [facility] [place] [id number] [place] [address] 77114- 9629 Oct, [facility] [place] [address] [address] 4232 Oct, [facility] [place] [id number] [place] [address] 11107- 7297 September, [facility] [place] [id number] [place] [address] 57054- 0473 Aug, [facility] [place] [id number] [place] [address] 43132- 4146 Aug, [facility] [place] [id number] [place] [address] 02333- 0863 Jul, Normal in multigravida Z34.80 ; 13 weeks gestation of Z3A.13 and Previous section complicating O34.219 [facility] [place] [id number] [place] [address] 81964- 6240 Jul, Thrombocytopenia D69.6 [facility] [place] [id number] [place] [address] 46854- 0293 Jul, Other specified related conditions, first trimester O26.891 and Dysuria R30.0 [facility] [place] [address] [place] [address] 62562- 7888 Jul, Thrombocytopenia D69.6 [facility] [place] [address] [address]- 9957 Jul, [facility] [place] [id number] [place] [address] 81230- 0657 Jun, [facility] [place] [address] [address]- 1386 Jun, [facility] [place] [address] [place] [address]- 0932 27 Jun, 2017 Normal in multigravida Z34.80 ; 9 weeks gestation of Z3A.09 ; Previous section complicating O34.219 and Chronic ITP (idiopathic thrombocytopenic purpura) D69.3 [facility] [facility] [id number] [place] [address] 07088- 5167 May, Missed period N92.6 ; Dysuria R30.0 ; Positive test Z32.01 ; First trimester Z34.90 and History of Z98.891 [place] [facility] [id number] [place] [address] 64066- 3882 May, [place] [facility] [id number] [place] [address] 73961- 7485 May, Other iron deficiency anemia D50.8 and Platelet disorder D69.1 [place] [address] 97016- 5132 16 May, 2017 Encounter for test Z32.00 [facility] [facility] [id number] [place] [address] 62571- 8636 Apr, [place] [id number] [place] [address] 96829- 6239 Apr, [place] [facility] [id number] [place] [address] 36363- 4818 Mar, Chronic fatigue R53.82 IMMUNIZATIONS No Known Immunizations SOCIAL HISTORY Never Assessed REASON FOR VISIT PLAN OF CARE VITAL SIGNS MEDICATIONS Unknown Medications RESULTS No Results PROCEDURES No Known procedures INSTRUCTIONS MEDICATIONS ADMINISTERED No Known Medications MEDICAL (GENERAL) HISTORY Type Description Date Medical History gastritis Medical History thrombotic trombocytopenic purpura Surgical History 2011
--- OUTSIDE RECORDS SUMMARY | 2018-07-14 06:55 | XMS REPORT ---
Author Author KARINA OLIVERA [facility] Address [address] [place] [address] Care Team Providers Care Washer Machine Name Role Phone KARINA OLIVERA Unavailable PROBLEMS Type Condition ICD9-CM Code WGD83-TE Code Onset Dates Condition Status SNOMED Code Problem Thrombocytopenia D69.6 Active 110536259 Problem Chronic ITP (idiopathic thrombocytopenic purpura) D69.3 Active 879073491 Problem Other iron deficiency anemia D50.8 Active 62847620 Problem Chronic fatigue R53.82 Active 56887763 Problem Missed period N92.6 Active 05680614 Problem Platelet disorder D69.1 Active 45583412 ALLERGIES No Information ENCOUNTERS Encounter Location Date Diagnosis [facility] [address] 57182- 1570 Dec, Third trimester Z34.93 and Chronic ITP ( idiopathic thrombocytopenic purpura) D69.3 [facility] [id number] [place] [address] 43121- 6065 Dec, [facility] [id number] [place] [address] 45533- 3472 Dec, [facility] [id number] [place] [address] 95687- 0469 Dec, Dysuria R30.0 [facility] [id number] [place] [address] 28405- 0795 Dec, [facility] [address] 98838- 5600 Nov, [facility] [id number] [place] [address] 68536- 7677 Nov, [facility] [address] 84265- 1144 Nov, [facility] [address], [place] [address]- 6076 Nov, [facility] [address] [address] 1825 Oct, [facility] [address], [place] [address]- 1194 Oct, [facility] [address] [place] [address] 381080- 6888 September, [facility] [address], [place] [address]- 8490 Aug, [facility] [address] [place] [address] 20174- 7010 Aug, [facility] [address], [place] [address]- 6803 Jul, Normal in multigravida Z34.80 ; 13 weeks gestation of Z3A.13 and Previous section complicating O34.219 [facility] [address] [place] [address] 19236- 8096 Jul, Thrombocytopenia D69.6 [facility] [address], [place] [address]- 6421 Jul, Other specified related conditions, first trimester O26.891 and Dysuria R30.0 [facility] [address], [place] [address]- 1863 Jul, Thrombocytopenia D69.6 [facility] [address], [place] [address]- 7525 Jul, [facility] [address] 3284 Jun, [facility] [address], [place] [address]- 0464 Jun, [facility] [address], [place] [address]- 7698 27 Jun, 2017 Normal in multigravida Z34.80 ; 9 weeks gestation of Z3A.09 ; Previous section complicating O34.219 and Chronic ITP (idiopathic thrombocytopenic purpura) D69.3 [place] [address] [place] [address] 95606- 7758 May, Missed period N92.6 ; Dysuria R30.0 ; Positive test Z32.01 ; First trimester Z34.90 and History of Z98.891 [place] [id number] [place] [address] 18293- 9543 May, [place] [id number] [place] [address] 27804- 1698 May, Other iron deficiency anemia D50.8 and Platelet disorder D69.1 [place] [facility] [id number] [place] [address] 41910- 4169 16 May, 2017 Encounter for test Z32.00 [place] [facility] [id number] [place] [address] 55666- 8887 Apr, [place] [facility] [id number] [place] [address] 68187- 1502 Apr, [place] [id number] [place] [address] 13771- 1472 Mar, Chronic fatigue R53.82 IMMUNIZATIONS No Known Immunizations SOCIAL HISTORY Never Assessed REASON FOR VISIT PLAN OF CARE VITAL SIGNS MEDICATIONS Unknown Medications RESULTS No Results PROCEDURES No Known procedures INSTRUCTIONS MEDICATIONS ADMINISTERED No Known Medications MEDICAL (GENERAL) HISTORY Type Description Date Medical History gastritis Medical History thrombotic trombocytopenic purpura Surgical History 2011
--- OUTSIDE RECORDS SUMMARY | 2018-07-14 06:55 | XMS REPORT ---
Author Author KARINA OLIVERA [facility] Address [address] [place] [address] Care Team Providers Care Tester/Lift Trucker Name Role Phone KARINA OLIVERA Unavailable PROBLEMS Type Condition ICD9-CM Code KTW79-MD Code Onset Dates Condition Status SNOMED Code Problem Thrombocytopenia D69.6 Active 872976315 Problem Chronic ITP (idiopathic thrombocytopenic purpura) D69.3 Active 281827531 Problem Other iron deficiency anemia D50.8 Active 29346236 Problem Chronic fatigue R53.82 Active 61933531 Problem Missed period N92.6 Active 42760473 Problem Platelet disorder D69.1 Active 04330520 ALLERGIES No Information ENCOUNTERS Encounter Location Date Diagnosis [facility] [address] [place] [address] 67703- 3489 Nov, [facility] [id number] [place] [address] 65269- 2291 Nov, [facility] [id number] [place] [address] 16739- 5509 Nov, [facility] [address], [place] [address]- 1552 Nov, [facility] [id number] [place] [address] 49308- 3964 Oct, [facility] [address] [place] [address] 93034- 9805 Oct, [facility] [id number] [place] [address] 84114- 4692 September, [facility] [address] [address]- 7905 Aug, [facility] [id number] [place] [address] 25466- 8839 Aug, [facility] [address] [place] [address] 21636- 5808 Jul, Normal in multigravida Z34.80 ; 13 weeks gestation of Z3A.13 and Previous section complicating O34.219 [facility] [id number] [address]- 8496 Jul, Thrombocytopenia D69.6 [facility] [id number] [place] [address] 67764- 7973 Jul, Other specified related conditions, first trimester O26.891 and Dysuria R30.0 [place] [facility] [id number] [place] [address] 99465- 3930 Jul, Thrombocytopenia D69.6 [place] [facility] [id number] [place] [address] 60383- 9325 Jul, [facility] [id number] [place] [address] 07820- 0174 Jun, [place] [id number] [place] [address] 53148- 1742 Jun, [facility] [address], [place] [address]- 6204 Jun, Normal in multigravida Z34.80 ; 9 weeks gestation of Z3A.09 ; Previous section complicating O34.219 and Chronic ITP (idiopathic thrombocytopenic purpura) D69.3 [facility] [address] [address]- 6210 May, Missed period N92.6 ; Dysuria R30.0 ; Positive test Z32.01 ; First trimester Z34.90 and History of Z98.891 [facility] [address], [place] [address]- 6295 May, [facility] [id number] [address]- 9367 May, Other iron deficiency anemia D50.8 and Platelet disorder D69.1 [place] [facility] [id number] [place] [address] 03781- 7548 May, Encounter for test Z32.00 [place] [address] [place] [address] 08732- 4542 Apr, [place] [address] [place] [address] 22358- 8472 Apr, [place] [address], [place] [address]- 4048 Mar, Chronic fatigue R53.82 IMMUNIZATIONS No Known Immunizations SOCIAL HISTORY Never Assessed REASON FOR VISIT PLAN OF CARE VITAL SIGNS MEDICATIONS Unknown Medications RESULTS No Results PROCEDURES No Known procedures INSTRUCTIONS MEDICATIONS ADMINISTERED No Known Medications MEDICAL (GENERAL) HISTORY Type Description Date Medical History gastritis Medical History thrombotic trombocytopenic purpura Surgical History 2011
--- OUTSIDE RECORDS SUMMARY | 2018-07-14 06:55 | XMS REPORT ---
Author Author KARINA OLIVERA [facility] Address [address] [place] [address] Care Team Providers Care Ink Blender Name Role Phone KARINA OLIVERA Unavailable PROBLEMS Type Condition ICD9-CM Code ZGC26-RF Code Onset Dates Condition Status SNOMED Code Problem Thrombocytopenia D69.6 Active 595737867 Problem Chronic ITP (idiopathic thrombocytopenic purpura) D69.3 Active 989627613 Problem Other iron deficiency anemia D50.8 Active 49506546 Problem Chronic fatigue R53.82 Active 52445450 Problem Missed period N92.6 Active 25433922 Problem Platelet disorder D69.1 Active 76027123 ALLERGIES No Known Allergies ENCOUNTERS Encounter Location Date Diagnosis [facility] [id number] [place] [address] 53048- 2432 Nov, [facility] [id number] [place] [address] 65559- 4802 Nov, [facility] [id number] [place] [address] 47028- 6040 Nov, [facility] [address] [address]- 4483 Nov, [facility] [id number] [place] [address] 83890- 3987 Oct, [facility] [id number] [place] [address] 28760- 8207 Oct, [facility] [id number] [place] [address] 38200- 3069 September, [facility] [address] [place] [address] 43742- 2560 Aug, [facility] [id number] [place] [address] 38837- 8733 Aug, [facility] [id number] [place] [address] 30407- 2458 Jul, Normal in multigravida Z34.80 ; 13 weeks gestation of Z3A.13 and Previous section complicating O34.219 [facility] [id number] [place] [address] 80824- 8866 Jul, Thrombocytopenia D69.6 [facility] [id number] [place] [address] 26057- 4545 Jul, Other specified related conditions, first trimester O26.891 and Dysuria R30.0 [place] [facility] [id number] [place] [address] 84043- 6643 Jul, Thrombocytopenia D69.6 [place] [id number] [place] [address] 32496- 5943 Jul, [facility] [id number] [place] [address] 91575- 6332 Jun, [place] [id number] [place] [address] 70657- 2169 Jun, [facility] [address] [place] [address] 06555- 7044 Jun, Normal in multigravida Z34.80 ; 9 weeks gestation of Z3A.09 ; Previous section complicating O34.219 and Chronic ITP (idiopathic thrombocytopenic purpura) D69.3 [facility] [address] [place] [address] 57943- 0369 May, Missed period N92.6 ; Dysuria R30.0 ; Positive test Z32.01 ; First trimester Z34.90 and History of Z98.891 [facility] [address] [address]- 7428 May, [place] [address] [address]- 1737 May, Other iron deficiency anemia D50.8 and Platelet disorder D69.1 [place] [address] [address]- 1731 May, Encounter for test Z32.00 [place] [address] [place] [address] 68987- 2693 Apr, [place] [address] [place] [address] 82649- 3738 Apr, [place] [address] [place] [address] 26897- 2257 Mar, Chronic fatigue R53.82 IMMUNIZATIONS No Known Immunizations SOCIAL HISTORY Never Assessed REASON FOR VISIT [id number] PLAN OF CARE Activity Details Follow Up 4 Weeks Reason: Pending Test PAP REFLEX TO HPV IF ASCUS VITAL SIGNS Height 57.2 in 2017-07-19 Weight 104.7 lbs 2017-07-19 Temperature 98.2 degrees Fahrenheit 2017-07-19 Heart Rate 84 bpm 2017-07-19 Respiratory Rate 18 2017-07-19 BMI 22.499 kg/m2 2017-07-19 Blood pressure systolic 98 mmHg 2017-07-19 Blood pressure diastolic 62 mmHg 2017-07-19 MEDICATIONS Medication Instructions Dosage Frequency Start Date End Date Duration Status Omeprazole 20 mg Orally Once a day 1 capsule 24h Not-Taking Vol-Care Rx 1 MG Orally Once a day 1 tablet 24h May, 30 day(s) Not-Taking Ferrous Sulfate 325 (65 Fe) MG Orally Once a day 1 tablet 24h Apr, 30 day(s) Not-Taking PredniSONE 10 MG Orally Once a day 1 tablet 24h Active RESULTS No Results PROCEDURES Procedure Date Ordered Result Body Site COMPLETE CBC W/AUTO DIFF WBC Jul 19, 2017 SPECIMEN HANDLING Jul 19, 2017 CULTURE, BACTERIA, OTHER Jul 19, 2017 URINE CULTURE/COLONY COUNT Jul 19, 2017 RBC ANTIBODY SCREEN Jul 19, 2017 BLOOD TYPING, ABO Jul 19, 2017 BLOOD TYPING, RH (D) Jul 19, 2017 ASSAY THYROID STIM HORMONE Jul 19, 2017 RUBELLA ANTIBODY Jul 19, 2017 No Charge Jul 19, 2017 VENIPUNCT, ROUTINE* Jul 19, 2017 URINALYSIS, AUTO, W/O SCOPE Jul 19, 2017 TRICHOMONAS ASSAY W/OPTIC Jul 19, 2017 INSTRUCTIONS MEDICATIONS ADMINISTERED No Known Medications MEDICAL (GENERAL) HISTORY Type Description Date Medical History gastritis Medical History thrombotic trombocytopenic purpura Surgical History 2012
--- OUTSIDE RECORDS SUMMARY | 2018-07-14 06:55 | XMS REPORT ---
Author Author KARINA OLIVERA [facility] Address [address] [place] [address] Care Team Providers Care Crushing Machine Operator Name Role Phone KARINA OLIVERA Unavailable PROBLEMS Type Condition ICD9-CM Code TCT17-AW Code Onset Dates Condition Status SNOMED Code Problem Thrombocytopenia D69.6 Active 455822281 Problem Chronic ITP (idiopathic thrombocytopenic purpura) D69.3 Active 021346797 Problem Other iron deficiency anemia D50.8 Active 48722833 Problem Chronic fatigue R53.82 Active 32767954 Problem Missed period N92.6 Active 77142755 Problem Platelet disorder D69.1 Active 45206194 ALLERGIES No Information ENCOUNTERS Encounter Location Date Diagnosis [facility] [address] [address]- 4331 Dec, Third trimester Z34.93 and Chronic ITP ( idiopathic thrombocytopenic purpura) D69.3 [facility] [id number] [place] [address] 63454- 3461 Dec, [facility] [id number] [place] [address] 55829- 6118 Dec, [facility] [id number] [place] [address] 88740- 8449 Dec, Dysuria R30.0 [facility] [id number] [place] [address] 83883- 1199 Dec, [facility] [address] 99433- 0919 Nov, [facility] [id number] [place] [address] 69167- 1251 Nov, [facility] [address] 79148- 7068 Nov, [facility] [address] [address]- 9226 Nov, [facility] [address] 2059 Oct, [facility] [address] [address]- 0746 Oct, [facility] [address] [place] [address] 087167- 9393 September, [facility] [address] [address]- 4403 Aug, [facility] [address] [place] [address] 91138- 5130 Aug, [facility] [address] [address]- 5434 Jul, Normal in multigravida Z34.80 ; 13 weeks gestation of Z3A.13 and Previous section complicating O34.219 [facility] [address] [place] [address] 91769- 3320 Jul, Thrombocytopenia D69.6 [facility] [address] [address]- 8670 Jul, Other specified related conditions, first trimester O26.891 and Dysuria R30.0 [facility] [address], [place] [address]- 3434 Jul, Thrombocytopenia D69.6 [facility] [address] [address]- 0467 Jul, [facility] [address] 8239 Jun, [facility] [address] [address]- 5285 Jun, [facility] [address], [place] [address]- 9041 27 Jun, 2017 Normal in multigravida Z34.80 ; 9 weeks gestation of Z3A.09 ; Previous section complicating O34.219 and Chronic ITP (idiopathic thrombocytopenic purpura) D69.3 [place] [id number] [place] [address] May, Missed period N92.6 ; Dysuria R30.0 ; Positive test Z32.01 ; First trimester Z34.90 and History of Z98.891 [place] [address] [place] [id number] [place] [address] May, [place] [address] [place] [id number] [place] [address] May, Other iron deficiency anemia D50.8 and Platelet disorder D69.1 [place] [address] [place] [id number] [place] [phone] 16 May, 2017 Encounter for test Z32.00 [place] [address] [place] [id number] [place] [address]671 Apr, [place] [address] [place] [id number] [place] [phone]- [address] Apr, [place] [address] [place] [id number] [place] [address]26 Mar, Chronic fatigue R53.82 IMMUNIZATIONS No Known Immunizations SOCIAL HISTORY Never Assessed REASON FOR VISIT PLAN OF CARE VITAL SIGNS MEDICATIONS Unknown Medications RESULTS No Results PROCEDURES No Known procedures INSTRUCTIONS MEDICATIONS ADMINISTERED No Known Medications MEDICAL (GENERAL) HISTORY Type Description Date Medical History gastritis Medical History thrombotic trombocytopenic purpura Surgical History 2011
--- OUTSIDE RECORDS SUMMARY | 2018-07-14 06:55 | XMS REPORT ---
Author Author KARINA OLIVERA [facility] Address [address] [place] [address] Care Team Providers Care Waiter/Waitress Cabin Class Name Role Phone KARINA OLIVERA Unavailable PROBLEMS Type Condition ICD9-CM Code [id number] Code Onset Dates Condition Status SNOMED Code Problem Thrombocytopenia D69.6 Active 637216728 Problem Chronic ITP (idiopathic thrombocytopenic purpura) D69.3 Active 685284712 Problem Other iron deficiency anemia D50.8 Active 69385798 Problem Chronic fatigue R53.82 Active 85234991 Problem Missed period N92.6 Active 55109075 Problem Platelet disorder D69.1 Active 29809518 ALLERGIES No Information ENCOUNTERS Encounter Location Date Diagnosis [facility] [address] [place] [address] 83601- 9128 Nov, [facility] [id number] [place] [address] 52045- 6551 Nov, [facility] [id number] [place] [address] 09563- 6010 Nov, [facility] [address], [place] [address] 0707 Nov, [facility] [id number] [place] [address] 50157- 6413 Oct, [facility] [address] [place] [address] 09722- 0246 Oct, [facility] [id number] [place] [address] 88375- 9366 September, [facility] [address], [place] [address] 9124 Aug, [facility] [id number] [place] [address] 47106- 3044 Aug, [facility] [address] [place] [address] 10213- 9829 Jul, Normal in multigravida Z34.80 ; 13 weeks gestation of Z3A.13 and Previous section complicating O34.219 [facility] [id number], [place] [address]- 6526 Jul, Thrombocytopenia D69.6 [facility] [id number] [place] [address] 63350- 0260 Jul, Other specified related conditions, first trimester O26.891 and Dysuria R30.0 [facility] [id number] [place] [address] 87826- 0630 Jul, Thrombocytopenia D69.6 [facility] [id number] [place] [address] 54521- 4461 Jul, [facility] [id number] [place] [address] 29619- 0724 Jun, [facility] [id number] [place] [address] 19596- 9335 Jun, [facility] [address] [place] [address] 0879 Jun, Normal in multigravida Z34.80 ; 9 weeks gestation of Z3A.09 ; Previous section complicating O34.219 and Chronic ITP (idiopathic thrombocytopenic purpura) D69.3 [facility] [address], [place] [address]- 9761 May, Missed period N92.6 ; Dysuria R30.0 ; Positive test Z32.01 ; First trimester Z34.90 and History of Z98.891 [facility] [address], [place] [address] 4093 May, [facility] [id number] [address] 8085 May, Other iron deficiency anemia D50.8 and Platelet disorder D69.1 [facility] [id number] [place] [address] 20613- 0705 May, Encounter for test Z32.00 [facility] [address] [place] [address] 58166- 9483 Apr, [facility] [address] [place] [address] 90471- 8101 Apr, [facility] [address], [place] [address] 6479 Mar, Chronic fatigue R53.82 IMMUNIZATIONS No Known Immunizations SOCIAL HISTORY Never Assessed REASON FOR VISIT PLAN OF CARE VITAL SIGNS MEDICATIONS Unknown Medications RESULTS No Results PROCEDURES No Known procedures INSTRUCTIONS MEDICATIONS ADMINISTERED No Known Medications MEDICAL (GENERAL) HISTORY Type Description Date Medical History gastritis Medical History thrombotic trombocytopenic purpura Surgical History 2011
--- OUTSIDE RECORDS SUMMARY | 2018-07-14 06:55 | XMS REPORT ---
Author Author KARINA OLIVERA [facility] Address [address] [place] [address] Care Team Providers Care Manufacturing Maintenance Manager Name Role Phone KARINA OLIVERA Unavailable PROBLEMS Type Condition ICD9-CM Code IAM06-YQ Code Onset Dates Condition Status SNOMED Code Problem Thrombocytopenia D69.6 Active 486558652 Problem Chronic ITP (idiopathic thrombocytopenic purpura) D69.3 Active 040922324 Problem Other iron deficiency anemia D50.8 Active 06872145 Problem Chronic fatigue R53.82 Active 17951745 Problem Missed period N92.6 Active 10200246 Problem Platelet disorder D69.1 Active 64364369 ALLERGIES No Information ENCOUNTERS Encounter Location Date Diagnosis [facility] [address] [place] [address] 33848- 1657 Nov, [facility] [id number] [place] [address] 95534- 3000 Nov, [facility] [id number] [place] [address] 26168- 6717 Nov, [facility] [address], [place] [address]- 9378 Nov, [facility] [id number] [place] [address] 50855- 0613 Oct, [facility] [address] [place] [address] 42372- 8468 Oct, [facility] [id number] [place] [address] 12367- 0860 September, [facility] [address], [place] [address]- 4755 Aug, [facility] [id number] [place] [address] 17596- 6970 Aug, [facility] [address] [place] [address] 61545- 6032 Jul, Normal in multigravida Z34.80 ; 13 weeks gestation of Z3A.13 and Previous section complicating O34.219 [facility] [id number] [address]- 6966 Jul, Thrombocytopenia D69.6 [facility] [id number] [place] [address] 51418- 4867 Jul, Other specified related conditions, first trimester O26.891 and Dysuria R30.0 [facility] [id number] [place] [address] 47377- 3829 Jul, Thrombocytopenia D69.6 [facility] [id number] [place] [address] 76721- 3777 Jul, [facility] [id number] [place] [address] 21816- 6651 Jun, [facility] [id number] [place] [address] 97781- 1164 Jun, [facility] [address], [place] [address]- 4430 Jun, Normal in multigravida Z34.80 ; 9 weeks gestation of Z3A.09 ; Previous section complicating O34.219 and Chronic ITP (idiopathic thrombocytopenic purpura) D69.3 [facility] [address], [place] [address]- 4092 May, Missed period N92.6 ; Dysuria R30.0 ; Positive test Z32.01 ; First trimester Z34.90 and History of Z98.891 [facility] [address], [place] [address]- 9465 May, [facility] [id number], [place] [address]- 0423 May, Other iron deficiency anemia D50.8 and Platelet disorder D69.1 [facility] [id number] [place] [address] 56916- 2901 May, Encounter for test Z32.00 [facility] [address] [place] [address] 29587- 8868 Apr, [facility] [address] [place] [address] 62637- 0363 Apr, [facility] [address], [place] [address]- 2474 Mar, Chronic fatigue R53.82 IMMUNIZATIONS No Known Immunizations SOCIAL HISTORY Never Assessed REASON FOR VISIT PLAN OF CARE VITAL SIGNS MEDICATIONS Unknown Medications RESULTS No Results PROCEDURES No Known procedures INSTRUCTIONS MEDICATIONS ADMINISTERED No Known Medications MEDICAL (GENERAL) HISTORY Type Description Date Medical History gastritis Medical History thrombotic trombocytopenic purpura Surgical History 2011
--- OUTSIDE RECORDS SUMMARY | 2018-07-14 06:55 | XMS REPORT ---
Author Author KARINA OLIVERA [facility] Address [address] [place] [address] Care Team Providers Care Developmental Education Instructor Name Role Phone KARINA OLIVERA Unavailable PROBLEMS Type Condition ICD9-CM Code OWH24-JJ Code Onset Dates Condition Status SNOMED Code Problem Thrombocytopenia D69.6 Active 742120108 Problem Chronic ITP (idiopathic thrombocytopenic purpura) D69.3 Active 954778550 Problem Other iron deficiency anemia D50.8 Active 84012046 Problem Chronic fatigue R53.82 Active 76198497 Problem Missed period N92.6 Active 90989472 Problem Platelet disorder D69.1 Active 56541806 ALLERGIES No Information ENCOUNTERS Encounter Location Date Diagnosis [facility] [address] [place] [address] 13425- 8051 Nov, [facility] [id number] [place] [address] 37806- 4769 Nov, [facility] [id number] [place] [address] 22669- 6211 Nov, [facility] [address], [place] [address]- 1034 Nov, [facility] [id number] [place] [address] 09400- 4351 Oct, [facility] [address] [place] [address] 24481- 5595 Oct, [facility] [id number] [place] [address] 73663- 8778 September, [facility] [address], [place] [address]- 7229 Aug, [facility] [id number] [place] [address] 42953- 4657 Aug, [facility] [address] [place] [address] 73447- 9835 Jul, Normal in multigravida Z34.80 ; 13 weeks gestation of Z3A.13 and Previous section complicating O34.219 [facility] [address] [address]- 8576 Jul, Thrombocytopenia D69.6 [facility] [id number] [place] [address] 94226- 9772 Jul, Other specified related conditions, first trimester O26.891 and Dysuria R30.0 [facility] [id number] [place] [address] 75197- 3077 Jul, Thrombocytopenia D69.6 [facility] [id number] [place] [address] 62208- 9506 Jul, [facility] [id number] [place] [address] 09468- 5368 Jun, [facility] [id number] [place] [address] 21194- 8206 Jun, [facility] [address], [place] [address]- 7246 Jun, Normal in multigravida Z34.80 ; 9 weeks gestation of Z3A.09 ; Previous section complicating O34.219 and Chronic ITP (idiopathic thrombocytopenic purpura) D69.3 [facility] [address], [place] [address]- 5104 May, Missed period N92.6 ; Dysuria R30.0 ; Positive test Z32.01 ; First trimester Z34.90 and History of Z98.891 [facility] [address], [place] [address]- 1857 May, [facility] [id number], [place] [address]- 4655 May, Other iron deficiency anemia D50.8 and Platelet disorder D69.1 [facility] [id number] [place] [address] 29573- 5942 May, Encounter for test Z32.00 [facility] [address] [place] [address] 82371- 9492 Apr, [facility] [address] [place] [address] 08453- 4600 Apr, [facility] [id number] [address]- 5884 Mar, Chronic fatigue R53.82 IMMUNIZATIONS No Known Immunizations SOCIAL HISTORY Never Assessed REASON FOR VISIT [facility] Intake PLAN OF CARE VITAL SIGNS MEDICATIONS Unknown Medications RESULTS No Results PROCEDURES No Known procedures INSTRUCTIONS MEDICATIONS ADMINISTERED No Known Medications MEDICAL (GENERAL) HISTORY Type Description Date Medical History gastritis Medical History thrombotic trombocytopenic purpura Surgical History 2011
--- OUTSIDE RECORDS SUMMARY | 2018-07-14 06:55 | XMS REPORT ---
Author Author KARINA OLIVERA [facility] Address [address] [place] [address] Care Team Providers Care Staff Engineer Name Role Phone KARINA OLIVERA Unavailable PROBLEMS Type Condition ICD9-CM Code [id number] Code Onset Dates Condition Status SNOMED Code Problem Thrombocytopenia D69.6 Active 491639106 Problem Chronic ITP (idiopathic thrombocytopenic purpura) D69.3 Active 262826103 Problem Other iron deficiency anemia D50.8 Active 67261245 Problem Chronic fatigue R53.82 Active 19207664 Problem Missed period N92.6 Active 26195592 Problem Platelet disorder D69.1 Active 70290030 ALLERGIES No Information ENCOUNTERS Encounter Location Date Diagnosis [facility] [address] 00880- 0014 Dec, Third trimester Z34.93 and Chronic ITP ( idiopathic thrombocytopenic purpura) D69.3 [facility] [id number] [place] [address] 17828- 4638 Dec, [facility] [id number] [place] [address] 06785- 3992 Dec, [facility] [id number] [place] [address] 42173- 7690 Dec, Dysuria R30.0 [facility] [id number] [place] [address] 61005- 9252 Dec, [facility] [address] 14698- 6935 Nov, [facility] [id number] [place] [address] 97837- 4802 Nov, [facility] [address] 49692- 6313 Nov, [facility] [address] [address]- 4116 Nov, [facility] [address] 8013 Oct, [facility] [address] [address]- 3470 Oct, [facility] [address] [place] [address] 042010- 3891 September, [facility] [address] [address]- 8477 Aug, [facility] [address] [place] [address] 52888- 1863 Aug, [facility] [address] [address]- 8023 Jul, Normal in multigravida Z34.80 ; 13 weeks gestation of Z3A.13 and Previous section complicating O34.219 [facility] [address] [place] [address] 11139- 6692 Jul, Thrombocytopenia D69.6 [facility] [address] [address]- 9338 Jul, Other specified related conditions, first trimester O26.891 and Dysuria R30.0 [facility] [address] [address]- 1582 Jul, Thrombocytopenia D69.6 [facility] [address] [address]- 9606 Jul, [facility] [address] 1972 Jun, [facility] [address] [address]- 8401 Jun, [facility] [address] [address]- 5738 27 Jun, 2017 Normal in multigravida Z34.80 ; 9 weeks gestation of Z3A.09 ; Previous section complicating O34.219 and Chronic ITP (idiopathic thrombocytopenic purpura) D69.3 [facility] [address] [place] [address] 88093- 5450 May, Missed period N92.6 ; Dysuria R30.0 ; Positive test Z32.01 ; First trimester Z34.90 and History of Z98.891 [facility] [id number] [place] [address] 40431- 2383 May, [facility] [id number] [place] [address] 48078- 9841 May, Other iron deficiency anemia D50.8 and Platelet disorder D69.1 [facility] [id number] [place] [address] 95045- 1571 16 May, 2017 Encounter for test Z32.00 [facility] [id number] [place] [address] 95286- 7644 Apr, [facility] [id number] [place] [address] 19509- 7203 Apr, [facility] [id number] [place] [address] 30039- 7131 Mar, Chronic fatigue R53.82 IMMUNIZATIONS No Known Immunizations SOCIAL HISTORY Never Assessed REASON FOR VISIT PLAN OF CARE VITAL SIGNS MEDICATIONS Unknown Medications RESULTS No Results PROCEDURES No Known procedures INSTRUCTIONS MEDICATIONS ADMINISTERED No Known Medications MEDICAL (GENERAL) HISTORY Type Description Date Medical History gastritis Medical History thrombotic trombocytopenic purpura Surgical History 2011
--- OUTSIDE RECORDS SUMMARY | 2018-07-14 06:56 | XMS REPORT ---
Author Author INDIO TESFAYE Organization [facility] Address [address] [place] [address] Care Team Providers Care Overedger Name Role Phone INDIO TESFAYE Unavailable PROBLEMS Type Condition ICD9-CM Code [id number] Code Onset Dates Condition Status SNOMED Code Problem Thrombocytopenia D69.6 Active 790725560 Problem Chronic ITP (idiopathic thrombocytopenic purpura) D69.3 Active 750938343 Problem Other iron deficiency anemia D50.8 Active 09247947 Problem Chronic fatigue R53.82 Active 98853314 Problem Missed period N92.6 Active 83520923 Problem Platelet disorder D69.1 Active 40967415 ALLERGIES No Information ENCOUNTERS Encounter Location Date Diagnosis [facility] [id number] [place] [address] 05277- 6799 September, [facility] [id number] [place] [address] 40480- 5136 Aug, [facility] [address] 05118- 1841 Aug, [facility] [id number] [place] [address] 88580- 1027 Jul, Normal in multigravida Z34.80 ; 13 weeks gestation of Z3A.13 and Previous section complicating O34.219 [facility] [id number] [place] [address] 24299- 1564 Jul, Thrombocytopenia D69.6 [facility] [address] 48058- 1625 16 Jul, 2017 Other specified related conditions, first trimester O26.891 and Dysuria R30.0 [facility] [address] 34616- 1386 Jul, Thrombocytopenia D69.6 [facility] [address], [place] [address]- 4208 Jul, [facility] [id number] [place] [address] 22028- 6229 Jun, [facility] [id number] [place] [address] 33415- 1663 Jun, [facility] [id number] [place] [address] 32499- 1651 Jun, Normal in multigravida Z34.80 ; 9 weeks gestation of Z3A.09 ; Previous section complicating O34.219 and Chronic ITP (idiopathic thrombocytopenic purpura) D69.3 [facility] [id number] [place] [address] 69523- 5838 May, Missed period N92.6 ; Dysuria R30.0 ; Positive test Z32.01 ; First trimester Z34.90 and History of Z98.891 [facility] [id number] [place] [address] 49976- 0593 May, [facility] [id number] [place] [address] 38793- 5723 May, Other iron deficiency anemia D50.8 and Platelet disorder D69.1 [facility] [id number] [place] [address] 06345- 1851 May, Encounter for test Z32.00 [facility] [address] [place] [address] 38079- 4566 Apr, [facility] [id number] [place] [address] 36964- 9204 Apr, [facility] [address] [place] [address] 04226- 4063 Mar, Chronic fatigue R53.82 IMMUNIZATIONS No Known Immunizations SOCIAL HISTORY Never Assessed REASON FOR VISIT Lab results PLAN OF CARE VITAL SIGNS MEDICATIONS Unknown Medications RESULTS No Results PROCEDURES No Known procedures INSTRUCTIONS MEDICATIONS ADMINISTERED No Known Medications MEDICAL (GENERAL) HISTORY Type Description Date Medical History gastritis Medical History thrombotic trombocytopenic purpura Surgical History 2012
--- OUTSIDE RECORDS SUMMARY | 2018-07-14 06:56 | XMS REPORT ---
Author Author INDIO TESFAYE Organization [facility] Address [address] [place] [address] Care Team Providers Care Mortgage Processing Manager Name Role Phone INDIO TESFAYE Unavailable PROBLEMS Type Condition ICD9-CM Code [id number] Code Onset Dates Condition Status SNOMED Code Problem Thrombocytopenia D69.6 Active 975520127 Problem Chronic ITP (idiopathic thrombocytopenic purpura) D69.3 Active 159267217 Problem Other iron deficiency anemia D50.8 Active 12822414 Problem Chronic fatigue R53.82 Active 73092634 Problem Missed period N92.6 Active 16757429 Problem Platelet disorder D69.1 Active 31811429 ALLERGIES No Known Allergies ENCOUNTERS Encounter Location Date Diagnosis [place] [address] [address]- 8827 Oct, [place] [address] 37307- 0018 September, [place] [address] 40540- 3739 Aug, [place] [address] 83436- 1516 Aug, [place] [address] 50987- 7014 Jul, Normal in multigravida Z34.80 ; 13 weeks gestation of Z3A.13 and Previous section complicating O34.219 [place] [address] 77585- 5301 Jul, Thrombocytopenia D69.6 [place] [address] 02702- 4200 16 Jul, 2017 Other specified related conditions, first trimester O26.891 and Dysuria R30.0 [place] [address] [place] [id number] [place] [address] 56773- 8068 15 Jul, 2017 Thrombocytopenia D69.6 [place] [address] [place] [id number] [place] [address] 97688- 5584 05 Jul, 2017 [place] [address] [place] [address] [id number] [place] [address] 87650- 5749 Jun, [place] [address] [place] [id number] [place] [address] 92126- 8152 Jun, [place] [address] [place] [id number] [place] [address] 85779- 1633 Jun, Normal in multigravida Z34.80 ; 9 weeks gestation of Z3A.09 ; Previous section complicating O34.219 and Chronic ITP (idiopathic thrombocytopenic purpura) D69.3 [place] [address] [place] [id number] [place] [address] 24854- 8676 May, Missed period N92.6 ; Dysuria R30.0 ; Positive test Z32.01 ; First trimester Z34.90 and History of Z98.891 [place] [address] [place] [id number] [place] [address] 34262- 9673 May, [place] [address] [place] [id number] [place] [address] 58431- 2803 May, Other iron deficiency anemia D50.8 and Platelet disorder D69.1 [place] [address] [place] [id number] [place] [address] 98417- 7163 May, Encounter for test Z32.00 [place] [address] [place] [id number] [place] [address] 34244- 4230 Apr, [place] [address] [place] [id number] [place] [address] 43059- 8535 Apr, [place] [address] [place] [id number] [place] [address] 68875- 4240 Mar, Chronic fatigue R53.82 IMMUNIZATIONS No Known Immunizations SOCIAL HISTORY Never Assessed REASON FOR VISIT med f/u, pt states platlet count is low and she has been out of medication for 2 months. Sheri PLAN OF CARE VITAL SIGNS Height 57.2 in 2017-06-09 Weight 104.8 lbs 2017-06-09 Temperature 98.5 degrees Fahrenheit 2017-06-09 Heart Rate 88 bpm 2017-06-09 Respiratory Rate 2017-06-09 BMI 22.52 kg/m2 2017-06-09 Blood pressure systolic 104 mmHg 2017-06-09 Blood pressure diastolic 70 mmHg 2017-06-09 MEDICATIONS Medication Instructions Dosage Frequency Start Date End Date Duration Status PredniSONE 10 MG Orally Once a day 1 tablet 24h May, Jun, 30 day(s) Active Omeprazole 20 mg Orally Once a day 1 capsule 24h Active Ferrous Sulfate 325 (65 Fe) MG Orally Once a day 1 tablet 24h Apr, 30 day(s) Active RESULTS No Results PROCEDURES Procedure Date Ordered Result Body Site ASSAY OF FERRITIN Jun 09, 2017 VENIPUNCT, ROUTINE* Jun 09, 2017 FIBRINOGEN TEST Jun 09, 2017 VITAMIN B-12 Jun 09, 2017 BLOOD FOLIC ACID SERUM Jun 09, 2017 AUTOMATED RETICULOCYTE COUNT Jun 09, 2017 IRON BINDING TEST Jun 09, 2017 PROTHROMBIN TIME Jun 09, 2017 COMPLETE CBC W/AUTO DIFF WBC Jun 09, 2017 ASSAY OF IRON Jun 09, 2017 INSTRUCTIONS MEDICATIONS ADMINISTERED No Known Medications MEDICAL (GENERAL) HISTORY Type Description Date Medical History gastritis Medical History thrombotic trombocytopenic purpura Surgical History 2011
--- OUTSIDE RECORDS SUMMARY | 2018-07-14 06:56 | XMS REPORT ---
Author Author KARINA OLIVERA [facility] Address [address] [place] [address] Care Team Providers Care Cma Or Lpn Name Role Phone KARINA OLIVERA Unavailable PROBLEMS Type Condition ICD9-CM Code FMP62-VJ Code Onset Dates Condition Status SNOMED Code Problem Thrombocytopenia D69.6 Active 768260260 Problem Chronic ITP (idiopathic thrombocytopenic purpura) D69.3 Active 274074580 Problem Other iron deficiency anemia D50.8 Active 19175261 Problem Chronic fatigue R53.82 Active 16597818 Problem Missed period N92.6 Active 11882254 Problem Platelet disorder D69.1 Active 57597509 ALLERGIES No Information ENCOUNTERS Encounter Location Date Diagnosis [facility] [address] [place] [id number] [place] [address] 21264- 5379 Nov, [facility] [address] [place] [id number] [place] [address] 92148- 7545 Nov, [facility] [address] [place] [id number] [place] [address] 36241- 8832 Nov, [facility] [address] [place] [address] 56706- 1014 Nov, [facility] [address] [place] [id number] [place] [address] 81151- 4827 Oct, [facility] [address] [place] [address] [id number] [place] [address] 01877- 5602 Oct, [facility] [address] [place] [id number] [place] [address] 35866- 4482 September, [facility] [address] [place] [address] 63677- 6763 Aug, [facility] [address] [place] [id number] [place] [address] 28816- 6438 Aug, [facility] [address] [place] [address] 92422- 2916 Jul, Normal in multigravida Z34.80 ; 13 weeks gestation of Z3A.13 and Previous section complicating O34.219 [facility] [address] [place] [id number] [address]- [address]46 Jul, Thrombocytopenia D69.6 [facility] [address] [place] [id number] [place] [address] 03038- 0646 Jul, Other specified related conditions, first trimester O26.891 and Dysuria R30.0 [place] [address] [place] [address] [id number] [place] [address] 80822- 8390 Jul, Thrombocytopenia D69.6 [place] [address] [place] [id number] [place] [address] 30691- 4421 Jul, [facility] [address] [place] [address] [id number] [place] [address] 18091- 9712 Jun, [place] [address] [place] [address] [id number] [place] [address] 46126- 3121 Jun, [facility] [address] [address]- 0561 Jun, Normal in multigravida Z34.80 ; 9 weeks gestation of Z3A.09 ; Previous section complicating O34.219 and Chronic ITP (idiopathic thrombocytopenic purpura) D69.3 [facility] [address] [place] [address]- 9132 May, Missed period N92.6 ; Dysuria R30.0 ; Positive test Z32.01 ; First trimester Z34.90 and History of Z98.891 [facility] [address] [place] [address]- [address] May, [facility] [address] [place] [id number] [address]- 0489 May, Other iron deficiency anemia D50.8 and Platelet disorder D69.1 [place] [address], [place] [address]- 4468 May, Encounter for test Z32.00 [place] [address] [address] Apr, [place] [address] [place] [address] 216559- 7252 Apr, [place] [address] [place] [address] [address]- 6165 Mar, Chronic fatigue R53.82 IMMUNIZATIONS No Known Immunizations SOCIAL HISTORY Never Assessed REASON FOR VISIT Lab (walk-in) PLAN OF CARE VITAL SIGNS MEDICATIONS Medication Instructions Dosage Frequency Start Date End Date Duration Status Amoxicillin 500 mg Orally 2 times a day 1 capsule 12h Jul,Jul 07 days Active RESULTS No Results PROCEDURES Procedure Date Ordered Result Body Site URINALYSIS, AUTO, W/O SCOPE August 05, 2017 URINE CULTURE/COLONY COUNT August 05, 2017 INSTRUCTIONS MEDICATIONS ADMINISTERED No Known Medications MEDICAL (GENERAL) HISTORY Type Description Date Medical History gastritis Medical History thrombotic trombocytopenic purpura Surgical History 2011
--- OUTSIDE RECORDS SUMMARY | 2018-07-14 06:56 | XMS REPORT ---
Author Author KARINA OLIVERA [facility] Address [address] [place] [address] Care Team Providers Care Maintenance Machine Repairer Name Role Phone KARINA OLIVERA Unavailable PROBLEMS Type Condition ICD9-CM Code [id number] Code Onset Dates Condition Status SNOMED Code Problem Thrombocytopenia D69.6 Active 484963615 Problem Chronic ITP (idiopathic thrombocytopenic purpura) D69.3 Active 188573310 Problem Other iron deficiency anemia D50.8 Active 40356904 Problem Chronic fatigue R53.82 Active 44040427 Problem Missed period N92.6 Active 41010009 Problem Platelet disorder D69.1 Active 16009579 ALLERGIES No Information ENCOUNTERS Encounter Location Date Diagnosis [facility] [address] [place] [address] 45233- 4284 Nov, [facility] [address] [place] [id number] [place] [address] 90072- 3374 Nov, [facility] [address] [place] [id number] [place] [address] 73504- 2575 Nov, [facility] [address], [place] [address]- 4074 Nov, [facility] [address] [place] [id number] [place] [address] 73108- 3369 Oct, [facility] [address] [place] [address] 17683- 5983 Oct, [facility] [address] [place] [id number] [place] [address] 93725- 5531 September, [facility] [address] [address]- 0017 Aug, [facility] [address] [id number] [place] [address] 20620- 6889 Aug, [facility] [address] [place] [address] 61093- 9615 Jul, Normal in multigravida Z34.80 ; 13 weeks gestation of Z3A.13 and Previous section complicating O34.219 [facility] [address] [place] [address] [address], [place] [address]- 4006 Jul, Thrombocytopenia D69.6 [facility] [address] [place] [id number] [place] [address] 58967- 8372 Jul, Other specified related conditions, first trimester O26.891 and Dysuria R30.0 [place] [address] [place] [id number] [place] [address] 99873- 9304 Jul, Thrombocytopenia D69.6 [place] [address] [place] [id number] [place] [address] 74089- 9084 Jul, [facility] [address] [place] [id number] [place] [address] 63787- 9921 Jun, [place] [address] [place] [id number] [place] [address] 53577- 3699 Jun, [facility] [address], [place] [address]- 9556 Jun, Normal in multigravida Z34.80 ; 9 weeks gestation of Z3A.09 ; Previous section complicating O34.219 and Chronic ITP (idiopathic thrombocytopenic purpura) D69.3 [facility] [address], [place] [address]- 4024 May, Missed period N92.6 ; Dysuria R30.0 ; Positive test Z32.01 ; First trimester Z34.90 and History of Z98.891 [facility] [address], [place] [address]- 6546 May, [facility] [address] [place] [id number], [place] [address]- 1713 May, Other iron deficiency anemia D50.8 and Platelet disorder D69.1 [place] [address] [place] [address] 85420- 4167 May, Encounter for test Z32.00 [place] [address] [place] [address] 25187- 4228 Apr, [place] [address] [place] [address] 29158- 0926 Apr, [place] [address], [place] [address]- 1859 Mar, Chronic fatigue R53.82 IMMUNIZATIONS No Known Immunizations SOCIAL HISTORY Never Assessed REASON FOR VISIT Lab (walk-in) PLAN OF CARE VITAL SIGNS MEDICATIONS Unknown Medications RESULTS No Results PROCEDURES Procedure Date Ordered Result Body Site MANUAL CELL COUNT, EACH August 10, 2017 INSTRUCTIONS MEDICATIONS ADMINISTERED No Known Medications MEDICAL (GENERAL) HISTORY Type Description Date Medical History gastritis Medical History thrombotic trombocytopenic purpura Surgical History 2011
--- OUTSIDE RECORDS SUMMARY | 2018-07-14 06:56 | XMS REPORT ---
Author Author INDIO TESFAYE Organization [facility] Address [address] [place] [address] Care Team Providers Care Bindery Machine Setter/Set Up Operator Name Role Phone INDIO TESFAYE Unavailable PROBLEMS Type Condition ICD9-CM Code [id number] Code Onset Dates Condition Status SNOMED Code Problem Thrombocytopenia D69.6 Active 698941283 Problem Chronic ITP (idiopathic thrombocytopenic purpura) D69.3 Active 804755874 Problem Other iron deficiency anemia D50.8 Active 26567802 Problem Chronic fatigue R53.82 Active 40160942 Problem Missed period N92.6 Active 71993078 Problem Platelet disorder D69.1 Active 00930415 ALLERGIES No Information ENCOUNTERS Encounter Location Date Diagnosis [place] [address] [place] [id number] [place] [address] 12453- 9175 September, [place] [address] [place] [id number] [place] [address] 90155- 9976 Aug, [place] [address] 04918- 0194 Aug, [place] [address] [place] [id number] [place] [address] 16473- 9240 Jul, Normal in multigravida Z34.80 ; 13 weeks gestation of Z3A.13 and Previous section complicating O34.219 [place] [address] [place] [id number] [place] [address] 77156- 0875 Jul, Thrombocytopenia D69.6 [place] [address] 04387- 7096 16 Jul, 2017 Other specified related conditions, first trimester O26.891 and Dysuria R30.0 [place] [address] 93730- 8166 Jul, Thrombocytopenia D69.6 [place] [address], [place] [address]- 1570 Jul, [place] [address] [place] [id number] [place] [address] 62426- 0193 Jun, [place] [address] [place] [id number] [place] [address] 17175- 2533 Jun, [place] [address] [place] [id number] [place] [address] 62051- 9518 Jun, Normal in multigravida Z34.80 ; 9 weeks gestation of Z3A.09 ; Previous section complicating O34.219 and Chronic ITP (idiopathic thrombocytopenic purpura) D69.3 [place] [address] [place] [id number] [place] [address] 50903- 3594 May, Missed period N92.6 ; Dysuria R30.0 ; Positive test Z32.01 ; First trimester Z34.90 and History of Z98.891 [place] [address] [place] [id number] [place] [address] 00826- 5603 May, [place] [address] [place] [id number] [place] [address] 48079- 4983 May, Other iron deficiency anemia D50.8 and Platelet disorder D69.1 [place] [address] [place] [id number] [place] [address] 46902- 0235 May, Encounter for test Z32.00 [place] [address] [place] [address] 78462- 3867 Apr, [place] [address] [place] [id number] [place] [address] 31343- 6303 Apr, [place] [address] [place] [address] 84284- 2787 Mar, Chronic fatigue R53.82 IMMUNIZATIONS No Known Immunizations SOCIAL HISTORY Never Assessed REASON FOR VISIT Lab results PLAN OF CARE VITAL SIGNS MEDICATIONS Medication Instructions Dosage Frequency Start Date End Date Duration Status Ferrous Sulfate 325 (65 Fe) MG Orally Once a day 1 tablet 24h Apr, 30 day(s) Active RESULTS No Results PROCEDURES No Known procedures INSTRUCTIONS MEDICATIONS ADMINISTERED No Known Medications MEDICAL (GENERAL) HISTORY Type Description Date Medical History gastritis Medical History thrombotic trombocytopenic purpura Surgical History 2012
--- OUTSIDE RECORDS SUMMARY | 2018-07-14 06:56 | XMS REPORT ---
Author Author KARINA OLIVERA [facility] Address [address] [place] [address] Care Team Providers Care Dance Artist Name Role Phone KARINA OLIVERA Unavailable PROBLEMS Type Condition ICD9-CM Code CEW26-TM Code Onset Dates Condition Status SNOMED Code Problem Thrombocytopenia D69.6 Active 701453679 Problem Chronic ITP (idiopathic thrombocytopenic purpura) D69.3 Active 315508179 Problem Other iron deficiency anemia D50.8 Active 87396557 Problem Chronic fatigue R53.82 Active 75449998 Problem Missed period N92.6 Active 70556296 Problem Platelet disorder D69.1 Active 58644438 ALLERGIES No Known Allergies ENCOUNTERS Encounter Location Date Diagnosis [facility] [id number] [place] [address] 80713- 8674 Nov, [facility] [id number] [place] [address] 41695- 0284 Nov, [facility] [id number] [place] [address] 62797- 7838 Nov, [facility] [address], [place] [address]- 7212 Nov, [facility] [id number] [place] [address] 61901- 4722 Oct, [facility] [id number] [place] [address] 97239- 7289 Oct, [facility] [id number] [place] [address] 32395- 5571 September, [facility] [address] [place] [address] 95426- 9013 Aug, [facility] [id number] [place] [address] 72419- 6624 Aug, [facility] [id number] [place] [address] 57707- 4004 Jul, Normal in multigravida Z34.80 ; 13 weeks gestation of Z3A.13 and Previous section complicating O34.219 [facility] [id number] [place] [address] 25200- 3590 Jul, Thrombocytopenia D69.6 [facility] [id number] [place] [address] 00029- 3456 Jul, Other specified related conditions, first trimester O26.891 and Dysuria R30.0 [place] [id number] [place] [address] 07980- 0463 Jul, Thrombocytopenia D69.6 [place] [address] [id number] [place] [address] 63434- 2202 Jul, [facility] [id number] [place] [address] 71244- 6140 Jun, [place] [id number] [place] [address] 54871- 9803 Jun, [facility] [address] [place] [address] 38542- 5084 Jun, Normal in multigravida Z34.80 ; 9 weeks gestation of Z3A.09 ; Previous section complicating O34.219 and Chronic ITP (idiopathic thrombocytopenic purpura) D69.3 [facility] [address] [place] [address] 71146- 2279 May, Missed period N92.6 ; Dysuria R30.0 ; Positive test Z32.01 ; First trimester Z34.90 and History of Z98.891 [facility] [address], [place] [address]- 6635 May, [place] [address] [address]- 1255 May, Other iron deficiency anemia D50.8 and Platelet disorder D69.1 [place] [address], [place] [address]- 5621 May, Encounter for test Z32.00 [place] [address], [place] [address]- 9738 Apr, [place] [address], [place] [address]- 5526 Apr, [place] [address], [place] [address]- 7081 Mar, Chronic fatigue R53.82 IMMUNIZATIONS No Known Immunizations SOCIAL HISTORY Never Assessed REASON FOR VISIT OB 4wk f/u -- tanya sparks PLAN OF CARE Activity Details Follow Up 4 Weeks Reason: VITAL SIGNS Height 57.2 in 2017-08-16 Weight 100.9 lbs 2017-08-16 Temperature 97.8 degrees Fahrenheit 2017-08-16 Heart Rate 98 bpm 2017-08-16 Respiratory Rate 18 2017-08-16 BMI 21.682 kg/m2 2017-08-16 Blood pressure systolic 100 mmHg 2017-08-16 Blood pressure diastolic 78 mmHg 2017-08-16 MEDICATIONS Medication Instructions Dosage Frequency Start Date End Date Duration Status Vitamins - Orally Once a day 1 tablet 24h Active Ferrous Sulfate 325 (65 Fe) MG Orally Once a day 1 tablet 24h Apr, 30 day(s) Active Vol-Care Rx 1 MG Orally Once a day 1 tablet 24h May, 30 day(s) Not-Taking PredniSONE 10 MG Orally Once a day 1 tablet 24h Active Omeprazole 20 mg Orally Once a day 1 capsule 24h Not-Taking RESULTS Name Result Date Reference Range UA OB DIP (IN HOUSE) 2017-08-16 Glucose neg Protein trace PROCEDURES Procedure Date Ordered Result Body Site URINE-NO MICRO August 16, 2017 INSTRUCTIONS MEDICATIONS ADMINISTERED No Known Medications MEDICAL (GENERAL) HISTORY Type Description Date Medical History gastritis Medical History thrombotic trombocytopenic purpura Surgical History 2011
--- OUTSIDE RECORDS SUMMARY | 2018-07-14 06:56 | XMS REPORT ---
Author Author KARINA OLIVERA [facility] Address [address] [place] [address] Care Team Providers Care Social Welfare Clerk Name Role Phone KARINA OLIVERA Unavailable PROBLEMS Type Condition ICD9-CM Code [id number] Code Onset Dates Condition Status SNOMED Code Problem Thrombocytopenia D69.6 Active 657224505 Problem Chronic ITP (idiopathic thrombocytopenic purpura) D69.3 Active 887624893 Problem Other iron deficiency anemia D50.8 Active 46706780 Problem Chronic fatigue R53.82 Active 46633658 Problem Missed period N92.6 Active 80199903 Problem Platelet disorder D69.1 Active 31241608 ALLERGIES No Information ENCOUNTERS Encounter Location Date Diagnosis [facility] [id number] [place] [address] 58795- 6420 Nov, [facility] [id number] [place] [address] 42466- 9313 Nov, [facility] [id number] [place] [address] 29763- 0358 Nov, [facility] [id number] [place] [address] 87049- 1081 Oct, [facility] [id number] [place] [address] 54063- 7382 Oct, [facility] [id number] [place] [address] 30357- 4868 September, [facility] [id number] [place] [address] 17545- 5299 Aug, [facility] [id number] [place] [address] 57516- 8246 Aug, [facility] [id number] [place] [address] 93461- 0228 Jul, Normal in multigravida Z34.80 ; 13 weeks gestation of Z3A.13 and Previous section complicating O34.219 [place] [id number] [place] [address] 49042- 6250 Jul, Thrombocytopenia D69.6 [place] [id number] [place] [address] 22274- 7660 Jul, Other specified related conditions, first trimester O26.891 and Dysuria R30.0 [place] [address] 38886- 1155 Jul, Thrombocytopenia D69.6 [place] [id number] [place] [address] 59391- 3035 Jul, [place] [id number] [place] [address] 23328- 2270 Jun, [place] [id number] [place] [address] 35094- 0613 Jun, [place] [id number] [place] [address] 12703- 9987 Jun, Normal in multigravida Z34.80 ; 9 weeks gestation of Z3A.09 ; Previous section complicating O34.219 and Chronic ITP (idiopathic thrombocytopenic purpura) D69.3 [place] [id number] [place] [address] 86704- 8914 May, Missed period N92.6 ; Dysuria R30.0 ; Positive test Z32.01 ; First trimester Z34.90 and History of Z98.891 [place] [id number] [place] [address] 70576- 3901 May, [place] [id number] [place] [address] 02736- 4812 May, Other iron deficiency anemia D50.8 and Platelet disorder D69.1 [facility] [id number] [address] May, Encounter for test Z32.00 [place] [address] [address] 97[address] Apr, [place] [id number] [address] 9842 Apr, [place] [id number] [address] 3574 Mar, Chronic fatigue R53.82 IMMUNIZATIONS No Known Immunizations SOCIAL HISTORY Never Assessed REASON FOR VISIT labs PLAN OF CARE VITAL SIGNS MEDICATIONS Unknown Medications RESULTS No Results PROCEDURES No Known procedures INSTRUCTIONS MEDICATIONS ADMINISTERED No Known Medications MEDICAL (GENERAL) HISTORY Type Description Date Medical History gastritis Medical History thrombotic trombocytopenic purpura Surgical History 2011
--- OUTSIDE RECORDS SUMMARY | 2018-07-14 06:56 | XMS REPORT ---
Author Author KARINA OLIVERA [facility] Address [address] [place] [address] Care Team Providers Care Sparker And Patcher Name Role Phone KARINA OLIVERA Unavailable PROBLEMS Type Condition ICD9-CM Code [id number] Code Onset Dates Condition Status SNOMED Code Problem Thrombocytopenia D69.6 Active 189649392 Problem Chronic ITP (idiopathic thrombocytopenic purpura) D69.3 Active 506573994 Problem Other iron deficiency anemia D50.8 Active 71487835 Problem Chronic fatigue R53.82 Active 58118214 Problem Missed period N92.6 Active 20425889 Problem Platelet disorder D69.1 Active 74493176 ALLERGIES No Information ENCOUNTERS Encounter Location Date Diagnosis [facility] [id number] [place] [address] 28489- 6316 Nov, [facility] [id number] [place] [address] 56507- 9430 Nov, [facility] [id number] [place] [address] 46687- 4537 Nov, [facility] [address] [place] [address] 84380- 1528 Oct, [facility] [id number] [place] [address] 64908- 1493 Oct, [facility] [id number] [place] [address] 55487- 9583 September, [facility] [id number] [place] [address] 67263- 1533 Aug, [facility] [id number] [place] [address] 66657- 9080 Aug, [facility] [id number] [place] [address] 14303- 7461 Jul, Normal in multigravida Z34.80 ; 13 weeks gestation of Z3A.13 and Previous section complicating O34.219 [place] [id number] [place] [address] 49120- 5319 Jul, Thrombocytopenia D69.6 [place] [id number] [place] [address] 07768- 1091 Jul, Other specified related conditions, first trimester O26.891 and Dysuria R30.0 [place] [address] 22343- 0332 Jul, Thrombocytopenia D69.6 [place] [id number] [place] [address] 48638- 6787 Jul, [place] [id number] [place] [address] 01488- 6146 Jun, [place] [id number] [place] [address] 82940- 9378 Jun, [place] [id number] [place] [address] 72138- 6783 Jun, Normal in multigravida Z34.80 ; 9 weeks gestation of Z3A.09 ; Previous section complicating O34.219 and Chronic ITP (idiopathic thrombocytopenic purpura) D69.3 [place] [id number] [place] [address] 08990- 7083 May, Missed period N92.6 ; Dysuria R30.0 ; Positive test Z32.01 ; First trimester Z34.90 and History of Z98.891 [place] [id number] [place] [address] 61652- 3144 May, [place] [id number] [place] [address] 35647- 7158 May, Other iron deficiency anemia D50.8 and Platelet disorder D69.1 [facility] [address] [facility] [id number] [address] May, Encounter for test Z32.00 [place] [id number] [address]- 3903 Apr, [place] [id number] [address]- 6774 Apr, [place] [id number] [address]- 8360 Mar, Chronic fatigue R53.82 IMMUNIZATIONS No Known Immunizations SOCIAL HISTORY Never Assessed REASON FOR VISIT Presumptive Eligibility-Denied PLAN OF CARE VITAL SIGNS MEDICATIONS Unknown Medications RESULTS No Results PROCEDURES No Known procedures INSTRUCTIONS MEDICATIONS ADMINISTERED No Known Medications MEDICAL (GENERAL) HISTORY Type Description Date Medical History gastritis Medical History thrombotic trombocytopenic purpura Surgical History 2011
--- OUTSIDE RECORDS SUMMARY | 2018-07-14 06:56 | XMS REPORT ---
Author Author INDIO TESFAYE Organization [facility] Address [address] [place] [address] Care Team Providers Care Termite Treater Name Role Phone INDIO TESFAYE Unavailable PROBLEMS Type Condition ICD9-CM Code CUN40-YR Code Onset Dates Condition Status SNOMED Code Problem Thrombocytopenia D69.6 Active 381259991 Problem Chronic ITP (idiopathic thrombocytopenic purpura) D69.3 Active 169605880 Problem Other iron deficiency anemia D50.8 Active 30158111 Problem Chronic fatigue R53.82 Active 78323213 Problem Missed period N92.6 Active 74855155 Problem Platelet disorder D69.1 Active 54734540 ALLERGIES No Known Allergies ENCOUNTERS Encounter Location Date Diagnosis [place] [id number] [place] [address] 11486- 6745 September, [place] [id number] [place] [address] 33508- 2719 Aug, [place] [id number] [place] [address] 92651- 6183 Aug, [place] [id number] [place] [address] 67748- 0168 Jul, Normal in multigravida Z34.80 ; 13 weeks gestation of Z3A.13 and Previous section complicating O34.219 [place] [id number] [place] [address] 32090- 1061 Jul, Thrombocytopenia D69.6 [place] [address] 60824- 2631 16 Jul, 2017 Other specified related conditions, first trimester O26.891 and Dysuria R30.0 [place] [address] 95899- 7138 15 Jul, 2017 Thrombocytopenia D69.6 [place] [address], [place] [address]- 8973 Jul, [place] [id number] [place] [address] 38917- 3211 Jun, [place] [id number] [place] [address] 90918- 4841 Jun, [place] [id number] [place] [address] 59060- 4331 Jun, Normal in multigravida Z34.80 ; 9 weeks gestation of Z3A.09 ; Previous section complicating O34.219 and Chronic ITP (idiopathic thrombocytopenic purpura) D69.3 [place] [id number] [place] [address] 45602- 1264 May, Missed period N92.6 ; Dysuria R30.0 ; Positive test Z32.01 ; First trimester Z34.90 and History of Z98.891 [place] [id number] [place] [address] 00361- 5081 May, [place] [id number] [place] [address] 45509- 8148 May, Other iron deficiency anemia D50.8 and Platelet disorder D69.1 [place] [address] [place] [address] 82184- 8605 May, Encounter for test Z32.00 [place] [address], [place] [address]- [address] Apr, [place] [id number] [place] [address] 87915- 4861 Apr, [place] [address] [place] [address] 74140- 8609 Mar, Chronic fatigue R53.82 IMMUNIZATIONS No Known Immunizations SOCIAL HISTORY Never Assessed REASON FOR VISIT Establish Care, CBrumbackRN PLAN OF CARE VITAL SIGNS Height 57.2 in 2017-04-21 Weight 107.6 lbs 2017-04-21 Temperature 98.5 degrees Fahrenheit 2017-04-21 Heart Rate 80 bpm 2017-04-21 Respiratory Rate 16 2017-04-21 BMI 23.12 kg/m2 2017-04-21 Blood pressure systolic 102 mmHg 2017-04-21 Blood pressure diastolic 78 mmHg 2017-04-21 MEDICATIONS Medication Instructions Dosage Frequency Start Date End Date Duration Status Omeprazole 20 mg Orally Once a day 1 capsule 24h Active RESULTS No Results PROCEDURES Procedure Date Ordered Result Body Site VENIPUNCT, ROUTINE* Apr 21, 2017 COMPLETE CBC W/AUTO DIFF WBC Apr 21, 2017 ASSAY THYROID STIM HORMONE Apr 21, 2017 COMPREHEN METABOLIC PANEL Apr 21, 2017 INSTRUCTIONS MEDICATIONS ADMINISTERED No Known Medications MEDICAL (GENERAL) HISTORY Type Description Date Medical History gastritis Medical History thrombotic trombocytopenic purpura Surgical History 2012
--- OUTSIDE RECORDS SUMMARY | 2018-07-14 06:56 | XMS REPORT ---
Author Author RUPA EAGLE [facility] Address [address] [place] [address] Care Team Providers Care Rod Welder Name Role Phone FCO RUPA Unavailable PROBLEMS Type Condition ICD9-CM Code [id number] Code Onset Dates Condition Status SNOMED Code Problem Thrombocytopenia D69.6 Active 175729818 Problem Chronic ITP (idiopathic thrombocytopenic purpura) D69.3 Active 007272826 Problem Other iron deficiency anemia D50.8 Active 59077802 Problem Chronic fatigue R53.82 Active 85196312 Problem Missed period N92.6 Active 20633148 Problem Platelet disorder D69.1 Active 01909532 ALLERGIES No Information ENCOUNTERS Encounter Location Date Diagnosis [place] [address] [address]22- 1349 Oct, [place] [address] 05848- 7283 September, [place] [address] 23775- 3935 Aug, [place] [address] 21189- 9746 Aug, [place] [address] 46830- 0647 Jul, Normal in multigravida Z34.80 ; 13 weeks gestation of Z3A.13 and Previous section complicating O34.219 [place] [address] 16014- 8270 Jul, Thrombocytopenia D69.6 [place] [address] 53804- 0961 16 Jul, 2017 Other specified related conditions, first trimester O26.891 and Dysuria R30.0 [place] [id number] [place] [address] 70138- 7094 Jul, Thrombocytopenia D69.6 [place] [id number] [place] [address] 31720- 2415 Jul, [place] [id number] [place] [address] 80600- 7354 Jun, [place] [address] 14728- 8959 Jun, [place] [address] 04073- 5060 Jun, Normal in multigravida Z34.80 ; 9 weeks gestation of Z3A.09 ; Previous section complicating O34.219 and Chronic ITP (idiopathic thrombocytopenic purpura) D69.3 [place] [id number] [place] [address] 22574- 7399 May, Missed period N92.6 ; Dysuria R30.0 ; Positive test Z32.01 ; First trimester Z34.90 and History of Z98.891 [place] [id number] [place] [address] 72721- 8251 May, [place] [id number] [place] [address] 49283- 7750 May, Other iron deficiency anemia D50.8 and Platelet disorder D69.1 [place] [id number] [place] [address] 92434- 8864 May, Encounter for test Z32.00 [place] [address] 45630- 9163 Apr, [place] [id number] [place] [address] 66172- 8803 Apr, [place] [address] 18995- 1096 Mar, Chronic fatigue R53.82 IMMUNIZATIONS No Known Immunizations SOCIAL HISTORY Never Assessed REASON FOR VISIT test--[employer] PLAN OF CARE VITAL SIGNS MEDICATIONS Unknown Medications RESULTS Name Result Date Reference Range TEST, URINE (IN HOUSE) 2017-06-07 RESULTS Negative Lot # [id number] Control + Exp date 07/2018 PROCEDURES Procedure Date Ordered Result Body Site URINE TEST Jun 07, 2017 INSTRUCTIONS MEDICATIONS ADMINISTERED No Known Medications MEDICAL (GENERAL) HISTORY Type Description Date Medical History gastritis Medical History thrombotic trombocytopenic purpura Surgical History 2012
[2018-07-14 07:15] VITALS: BP 106/70
[2018-07-14] MEDS: LACTATED RINGERS 1,000 ML IV PRN ×2 (07:25→12:20)
[2018-07-14] MEDS ORDERED: BUP/EPI 0.5% 1:200,000 (SENSORCAINE) 30 ML VIAL ONE ×2 (07:31→11:29)
[2018-07-14 07:43] LABS: BASOPHILS % (AUTO) 0 % (0-10); EOSINOPHILS % (AUTO) 0 % (0-10); HEMATOCRIT 42 % (35-52); HEMOGLOBIN 13.6 G/DL (11.5-16.0); LYMPHOCYTES % (AUTO) 9 % (12-44); MEAN CORPUSCULAR HEMOGLOBIN 26 PG (25-34); MEAN CORPUSCULAR HGB CONC 32 G/DL (32-36); MEAN CORPUSCULAR VOLUME 82 FL (80-99); MONOCYTES # (AUTO) 0.2 X 10^3 (0.0-1.0); MONOCYTES % (AUTO) 2 % (0-12); NEUTROPHILS # (AUTO) 9.1 X 10^3 (1.8-7.8); NEUTROPHILS % (AUTO) 89 % (42-75); RED CELL DISTRIBUTION WIDTH 15.1 % (10.0-14.5); WHITE BLOOD COUNT 10.3 10^3/uL (4.3-11.0)
[2018-07-14] MEDS ORDERED: LIDOCAINE PF 2% 5 ML (XYLOCAINE) VIAL ONE (07:44)
[2018-07-14] MEDS ORDERED: proPOfol 200 MG/20 ML (DIPRIVAN) VIAL IV ONE (07:44)
[2018-07-14] MEDS ORDERED: MIDAZOLAM 2 MG/2 ML (VERSED) VIAL ONE (07:44)
[2018-07-14] MEDS ORDERED: DEXAMETHASONE 10 MG/ML (DECADRON) 1 ML VIAL ONE (07:44)
[2018-07-14] MEDS ORDERED: ONDANSETRON 4 MG/2 ML (SDV) Z0FRAN ONE (07:44)
[2018-07-14] MEDS ORDERED: SEVOFLURANE (ULTANE) 15 ML INHAL SOLN ONE ×4 (07:44→14:30)
[2018-07-14] MEDS ORDERED: fentaNYL INJECTION 250 MCG/5 ML AMP ONE (07:44)
[2018-07-14] MEDS ORDERED: NEOSTIGMINE 1 MG/ML 5 ML SYRINGE ONE (07:44)
[2018-07-14] MEDS ORDERED: GLYCOPYRROLATE 0.2 MG/ML (ROBINUL) 2 ML VIAL ONE (07:44)
[2018-07-14] MEDS ORDERED: ROCURONIUM 10 MG/ML 5 ML SYRINGE IV ONE (07:44)
[2018-07-14] MEDS ORDERED: ceFAZolin 1,000 MG/SWFI 10 ML IV PUSH IV ONE ×2 (07:45)
[2018-07-14 07:46] LABS: PLATELET COUNT 36 10^3/uL (130-400)
--- NOTE | 2018-07-14 08:21 | Progress Note-Pre Operative ---
Pre-Operative Progress Note H&P Reviewed The H&P was reviewed, patient examined and no changes noted. Date Seen by Provider: Jun 14, 2018 Time Seen by Provider: 11:00 Date H&P Reviewed: Jul 14, 2018 Time H&P Reviewed: 08:19 Pre-Operative Diagnosis: Immune Thrombocytopenic Purpura KASIE REGAN MD Jul 14, 2018 08:21
[2018-07-14] MEDS ORDERED: NS IV 500 ML 500 ML ONE (08:45)
--- NOTE | 2018-07-14 08:49 | History & Physicial ---
History of Present Illness History of Present Illness Reason for visit/HPI To undergo robotic assisted splenectomy to address ITP Date of Admission Jul 14, 2018 at 06:47 Date Seen by a Provider: Jul 14, 2018 Time Seen by a Provider: 08:46 I consulted on this patient on 07/14/18 08:45 Attending Physician Kasie Regan MD Admitting Physician Elvia Alatorre MD Consult Allergies and Home Medications Allergies Coded Allergies: No Known Drug Allergies (Unverified , 07/13/18) Home Medications Prednisone 50 Mg Tab, 50 MG PO DAILY, (Reported) Patient Home Medication List Home Medication List Reviewed: Yes Past Uwjvshi-Lbtwnv-Rvhtkh Hx Patient Social History Marrital Status: Employed/Student: unemployed Recent Foreign Travel: No Contact w/other who traveled: No Recent Hopitalizations: No Recent Infectious Disease Expo: No Seasonal Allergies Seasonal Allergies: Yes Surgeries Yes (CS X2) Section Respiratory No Cardiovascular No Neurological No Reproductive System Hx Reproductive Disorders: No Sexually Transmitted Disease: No HIV/AIDS: No Female Reproductive Disorders: Denies Genitourinary No Gastrointestinal No Musculoskeletal No Endocrine History of Endocrine Disorders: No HEENT History of HEENT Disorders: Yes Cancer No Psychosocial History of Psychiatric Problem: No Integumentary History of Skin or Integumenta: No Blood Transfusions History of Blood Disorders: Yes (IMMUNE THROMBOCYTOPENIA) Adverse Reaction to a Blood Tr: No (HAS HAD BLOOD WITH NO REACTION) Family Medical History Significant Family History: No Pertinent Family Hx Review of Systems Constitutional: no symptoms reported EENTM: no symptoms reported Respiratory: no symptoms reported Cardiovascular: no symptoms reported Gastrointestinal: no symptoms reported Genitourinary: no symptoms reported Musculoskeletal: no symptoms reported Skin: no symptoms reported Psychiatric/Neurological: No Symptoms Reported Physical Exam Vital Signs Vital Signs - First Documented 07/14/18 07:15 Temp 96.9 Pulse 75 Resp 16 B/P (MAP) 106/70 Pulse Ox 99 O2 Delivery Room Air Capillary Refill : Height, Weight, BMI Height: 4'11.00" Weight: 107lbs. 0.0oz. 48.800863ge; 21.6 BMI Method:Stated General Appearance: No Apparent Distress Neck: Normal Inspection Respiratory: Lungs Clear Cardiovascular: Regular Rate, Rhythm Gastrointestinal: Non Tender, Soft Extremity: Normal Inspection Neurologic/Psychiatric: Alert, Oriented x3 Skin: Warm/Dry Assessment/Plan Assessment and Plan Lady with ITP. Platelet count 36,000, despite receiving immunoglobulins and steroids. Discussed with Dr. Addy Mobley, wh'os reassured about a low incidence of surgical bleeding under the current conditions; would transfuse fresh platelets and proceed with surgery. She has received prophylactic vaccines ahead of time Admission Diagnosis Admission Status: Observation KASIE REGAN MD Jul 14, 2018 08:49
--- NOTE | 2018-07-14 08:50 | Progress Note-Pre Operative ---
Pre-Operative Progress Note H&P Reviewed The H&P was reviewed, patient examined and no changes noted. Date Seen by Provider: Jul 14, 2018 Time Seen by Provider: 08:49 Date H&P Reviewed: Jul 14, 2018 Time H&P Reviewed: 08:49 Pre-Operative Diagnosis: KASIE THORNTON MD Jul 14, 2018 08:49
[2018-07-14 09:59] VITALS: BP 118/79
[2018-07-14 10:03] VITALS: BP 116/78
[2018-07-14 10:23] VITALS: BP 106/73
[2018-07-14] MEDS ORDERED: BUPIVACAINE 0.25% 30 ML (SENSORCAINE) VIAL ONE (14:38)
--- NOTE | 2018-07-14 15:01 | Operative Report ---
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 Therefore, splenectomy was felt to be reasonable. She was offered the procedure using minimally invasive technique with the robotic assistance. Informed consent was obtained after reviewing the operative details and complications of intra-abdominal postoperative bleeding, hematoma, subdiaphragmatic abscess and wound infection. Description of the procedure: She was initially placed supine on the operating table and general anesthesia induced. Ancef was administered intravenously as prophylaxis against wound infection. Subsequently, the left side of her body was placed on a roll and she was turned into reverse Trendelenburg position, to achieve optimal exposure of the spleen. Pneumoperitoneum was established using a Veress introduced supero-lateral to the umbilicus. Intra-abdominal pressure was maintained at 15 mmHg, using carbon dioxide insufflation. A 12 mm trocar was placed and anatomy visualized using the high definition, 3-dimensional laparoscope associated with da Mercedes system. Spleen was easily identified and found to be of normal size. Under direct view, I placed a total of three 8 mm trocars, 2 of them over the upper aspect of the abdomen and one over the left lower quadrant. The robotic system was then docked in place. Splenic flexure of the colon was mobilized using the vessel sealing device. Dissection was then continued medial to the hilum leading to the short gastric vessels. These were taken down using the vessel sealing device, protecting the fundus of the stomach. Splenic artery was isolated, away from the hilum and the main trunk controlled using a total of 3 locking clips. This was followed by isolation of the splenic vein, which was managed in a similar fashion. Spleno-phrenic ligament and the posterior attachments of the spleen were taken down using the vessel sealing device, freeing up the spleen. It was placed in the pelvis, initially with an intention to be removed via a Pfannenstiel incision. However, the bladder was densely adherent to the undersurface of the previous scar and therefore we elected to make a 4 cm midline incision around the umbilicus. Pneumoperitoneum was deflated and the spleen removed intact. Prior to retrieval of the specimen, left upper quadrant was thoroughly irrigated with saline and hemostasis was found to be satisfactory. Thrombin solution was placed over the splenic bed to optimize hemostasis. The fascia over the midline incision was closed using #2 Prolene. Subcutaneous tissue was approximated using 3-0 vicryl. Skin incisions are closed using 4-0 Vicryl, in a subcuticular fashion. 0.5 percent Marcaine with epinephrine was infiltrated along the incisions, both preemptively and at the conclusion of the operation. She tolerated the procedure well, was extubated in the operating room and taken to the recovery room in a stable condition. Findings of the Procedure See op report Allergies and Home Medications Allergies Coded Allergies: No Known Drug Allergies (Unverified , 07/13/18) Home Medications Prednisone 50 Mg Tab, 50 MG PO DAILY, (Reported) Patient Home Medication List Home Medication List Reviewed: Yes KASIE REGAN MD Jul 14, 2018 15:01
[2018-07-14] MEDS ORDERED: morphine INJ 10 MG/ML 1ML (SYR OR VIAL) ONE (15:22)
[2018-07-14] MEDS ORDERED: morphine INJ 10 MG/ML 1ML (SYR OR VIAL) IVP ONE (15:30)
[2018-07-14] MEDS ORDERED: HYDROmorphone 2 MG/ML VIAL (DILAUDID) IV ONE (15:30)
[2018-07-14] MEDS ORDERED: ONDANSETRON 4 MG/2 ML (SDV) Z0FRAN IVP PRN (15:30)
[2018-07-14 16:08] VITALS: BP 124/80
--- NOTE | 2018-07-14 16:39 | NUR ---
PT TO ROOM 432.1 VIA BED ACCOMPANIED BY PACU STAFF. PT DROWSY ON ROOM AIR. PT DEMONSTRATES USE OF CALL LIGHT AT THIS TIME. PT RATES PAIN AT 4/10, AWAITING RX VERIFICATION OF MEDS. VSS UPON ARRIVAL. PT PURSE BROUGHT TO ROOM WITH HERE, NO FAMILY OR VISITORS HERE AT THIS TIME.
[2018-07-14] MEDS: HYDROcodone/APAP 5 MG/325 MG (LORTAB) TAB PO PRN (17:14)
[2018-07-14] MEDS: LACTATED RINGERS 1,000 ML IV SCH (17:14)
[2018-07-14] MEDS ORDERED: CATHETER FLUSH 10 ML SYR IV PRN (17:15)
[2018-07-14] MEDS: ceFAZolin INJECTION 1,000 MG in WATER (STERILE) FOR INJECTION 10 ML IV SCH (17:15)
--- NOTE | 2018-07-14 17:21 | NUR ---
RT YVON NOTIFIED AT THIS TIME OF I.S. ORDER.
[2018-07-14] MEDS: fentaNYL INJECTION 100 MCG/2 ML AMP IV PRN (19:22)
[2018-07-14] MEDS: ONDANSETRON 4 MG/2 ML (SDV) Z0FRAN IVP PRN (19:26)
[2018-07-14 20:05] VITALS: BP 127/83
--- NOTE | 2018-07-14 20:30 | NUR ---
Dr Dejesus notified of pt unable to void, and bladder scan results. order to straight cath given. 875 ml of urine return with straight cath
[2018-07-15] VITALS: BP 109/64
[2018-07-15] MEDS: ceFAZolin INJECTION 1,000 MG in WATER (STERILE) FOR INJECTION 10 ML IV SCH (01:21)
[2018-07-15] MEDS: HYDROcodone/APAP 5 MG/325 MG (LORTAB) TAB PO PRN ×4 (01:21→19:48)
[2018-07-15] MEDS: LACTATED RINGERS 1,000 ML IV SCH ×3 (02:53→20:09)
[2018-07-15] MEDS: fentaNYL INJECTION 100 MCG/2 ML AMP IV PRN ×4 (03:25→16:18)
[2018-07-15 04:00] VITALS: BP 103/68
[2018-07-15 06:45] LABS: BASOPHILS % (AUTO) 0 % (0-10); EOSINOPHILS % (AUTO) 0 % (0-10); HEMATOCRIT 35 % (35-52); HEMOGLOBIN 10.9 G/DL (11.5-16.0); LYMPHOCYTES % (AUTO) 21 % (12-44); MEAN CORPUSCULAR HEMOGLOBIN 26 PG (25-34); MEAN CORPUSCULAR HGB CONC 31 G/DL (32-36); MEAN CORPUSCULAR VOLUME 82 FL (80-99); MEAN PLATELET VOLUME 10.9 FL (7.4-10.4); MONOCYTES # (AUTO) 0.9 X 10^3 (0.0-1.0); MONOCYTES % (AUTO) 9 % (0-12); NEUTROPHILS # (AUTO) 6.6 X 10^3 (1.8-7.8); NEUTROPHILS % (AUTO) 70 % (42-75); PLATELET COUNT 99 10^3/uL (130-400); RED CELL DISTRIBUTION WIDTH 15.1 % (10.0-14.5); WHITE BLOOD COUNT 9.5 10^3/uL (4.3-11.0)
[2018-07-15 07:06] LABS: BUN/CREATININE RATIO 14; CALCIUM 8.5 MG/DL (8.5-10.1); CARBON DIOXIDE 24 MMOL/L (21-32); CHLORIDE 107 MMOL/L (98-107); CREATININE SERUM 0.69 MG/DL (0.60-1.30); GFR ESTIMATED > 60; GLUCOSE 88 MG/DL (70-105); POTASSIUM 3.7 MMOL/L (3.6-5.0); SODIUM 139 MMOL/L (135-145)
--- NOTE | 2018-07-15 07:32 | Progress Note-Standard ---
Standard Progress Note Progress Notes/Assess & Plan Date Seen by a Provider: Jul 15, 2018 Time Seen by a Provider: 07:31 Progress/Assessment & Plan Urinary retention last night, requiring catheterization. Vitals stable, incisions dry. Platelets 99,000. Increase ambulation Final Diagnosis ITP KASIE REGAN MD Jul 15, 2018 07:32
[2018-07-15 08:32] VITALS: BP 112/77
[2018-07-15 11:54] VITALS: BP 112/73
--- NOTE | 2018-07-15 15:16 | Anesthesia-General Post-Op ---
General Patient Condition Mental Status/LOC: Same as Preop Cardiovascular: Satisfactory Nausea/Vomiting: Absent Respiratory: Satisfactory Pain: Controlled Complications: Absent Post Op Complications Complications None Follow Up Care/Instructions Patient Instructions None needed. Anesthesia/Patient Condition Patient Condition Patient is doing well, no complaints, stable vital signs, no apparent adverse anesthesia problems. No complications reported per nursing. JUAN ANTONIO HERNANDEZ CRNA Jul 15, 2018 15:16
[2018-07-15 16:00] VITALS: BP 107/62
[2018-07-15 19:32] VITALS: BP 101/53
[2018-07-16] VITALS: BP 105/70
[2018-07-16] MEDS: fentaNYL INJECTION 100 MCG/2 ML AMP IV PRN ×3 (01:26→08:38)
[2018-07-16 04:10] VITALS: BP 110/71
[2018-07-16] MEDS: HYDROcodone/APAP 5 MG/325 MG (LORTAB) TAB PO PRN ×2 (04:38→08:23)
[2018-07-16] MEDS: ONDANSETRON 4 MG/2 ML (SDV) Z0FRAN IVP PRN (08:30)
[2018-07-16 08:51] VITALS: BP 110/78
[2018-07-16] MEDS ORDERED: methylPREDNISolone 125 MG (Solu-MEDROL) VIAL IVP NR (11:00)
--- NOTE | 2018-07-16 11:01 | Progress Note-Standard ---
Standard Progress Note Progress Notes/Assess & Plan Date Seen by a Provider: Jul 16, 2018 Time Seen by a Provider: 10:59 Progress/Assessment & Plan Urinary retention last night, requiring catheterization. Vitals stable, incisions dry. Platelets 99,000. Increase ambulation. Doing well. Afebrile. Incisions dry. Could be discharged home on tapering dose of prednisone Final Diagnosis Immune thrombocytopenic purpura KASIE REGAN MD Jul 16, 2018 11:01
--- NOTE | 2018-07-16 11:02 | Discharge Summary ---
Diagnosis/Chief Complaint Date of Admission Jul 14, 2018 at 06:47 Date of Discharge Discharge Date: Jul 16, 2018 Discharge Time: 16:00 Admission Diagnosis Admission Diagnosis Immune Thrombocytopenic Purpura Discharge Diagnosis Same Reason Hospital Visit To undergo robotic assisted splenectomy to address ITP. Uneventful perioperative course. Has done well. Prednisone would be tapered on discharge Discharge Summary Discharge Physical Examination Allergies: Coded Allergies: No Known Drug Allergies (Unverified , 07/13/18) Vitals & I&Os Vital Signs Date Time Temp Pulse Resp B/P (MAP) Pulse Ox O2 Delivery O2 Flow Rate FiO2 07/16/18 08:51 98.7 79 18 110/78 (89) 95 Room Air Hospital Course Labs (last 24 hrs) Laboratory Tests 07/14/18 07:20: Urine Test NEGATIVE 07/14/18 07:25: White Blood Count 10.3, Red Blood Count 5.20, Hemoglobin 13.6, Hematocrit 42, Mean Corpuscular Volume 82, Mean Corpuscular Hemoglobin 26, Mean Corpuscular Hemoglobin Concent 32, Red Cell Distribution Width 15.1H, Platelet Count 36*L, Mean Platelet Volume , Neutrophils (%) (Auto) 89H, Lymphocytes (%) (Auto) 9L, Monocytes (%) (Auto) 2, Eosinophils (%) (Auto) 0, Basophils (%) (Auto) 0, Neutrophils # (Auto) 9.1H, Lymphocytes # (Auto) 1.0, Monocytes # (Auto) 0.2, Eosinophils # (Auto) 0.0, Basophils # (Auto) 0.0 07/15/18 06:30: White Blood Count 9.5, Red Blood Count 4.26L, Hemoglobin 10.9L, Hematocrit 35, Mean Corpuscular Volume 82, Mean Corpuscular Hemoglobin 26, Mean Corpuscular Hemoglobin Concent 31L, Red Cell Distribution Width 15.1H, Platelet Count 99L, Mean Platelet Volume 10.9H, Neutrophils (%) (Auto) 70, Lymphocytes (%) (Auto) 21 , Monocytes (%) (Auto) 9, Eosinophils (%) (Auto) 0, Basophils (%) (Auto) 0, Neutrophils # (Auto) 6.6, Lymphocytes # (Auto) 2.0, Monocytes # (Auto) 0.9, Eosinophils # (Auto) 0.0, Basophils # (Auto) 0.0, Sodium Level 139, Potassium Level 3.7, Chloride Level 107, Carbon Dioxide Level 24, Anion Gap 8, Blood Urea Nitrogen 10, Creatinine 0.69, Estimat Glomerular Filtration Rate > 60, BUN/ Creatinine Ratio 14, Glucose Level 88, Calcium Level 8.5 Microbiology 07/14/18 MRSA Screen - Final, Complete MRSA not isolated Pending Labs Microbiology Date/Time Source Procedure Growth Status 07/14/18 07:37 Nasal MRSA Screen - Final MRSA not isolated Complete Laboratory Tests 07/14/18 07:20: Urine Test NEGATIVE 07/14/18 07:25: White Blood Count 10.3, Red Blood Count 5.20, Hemoglobin 13.6, Hematocrit 42, Mean Corpuscular Volume 82, Mean Corpuscular Hemoglobin 26, Mean Corpuscular Hemoglobin Concent 32, Red Cell Distribution Width 15.1, Platelet Count 36, Mean Platelet Volume , Neutrophils (%) (Auto) 89, Lymphocytes (%) (Auto) 9, Monocytes (%) (Auto) 2, Eosinophils (%) (Auto) 0, Basophils (%) (Auto) 0, Neutrophils # (Auto) 9.1, Lymphocytes # (Auto) 1.0, Monocytes # (Auto) 0.2, Eosinophils # (Auto) 0.0, Basophils # (Auto) 0.0 07/15/18 06:30: White Blood Count 9.5, Red Blood Count 4.26, Hemoglobin 10.9, Hematocrit 35, Mean Corpuscular Volume 82, Mean Corpuscular Hemoglobin 26, Mean Corpuscular Hemoglobin Concent 31, Red Cell Distribution Width 15.1, Platelet Count 99, Mean Platelet Volume 10.9, Neutrophils (%) (Auto) 70, Lymphocytes (%) (Auto) 21 , Monocytes (%) (Auto) 9, Eosinophils (%) (Auto) 0, Basophils (%) (Auto) 0, Neutrophils # (Auto) 6.6, Lymphocytes # (Auto) 2.0, Monocytes # (Auto) 0.9, Eosinophils # (Auto) 0.0, Basophils # (Auto) 0.0, Sodium Level 139, Potassium Level 3.7, Chloride Level 107, Carbon Dioxide Level 24, Anion Gap 8, Blood Urea Nitrogen 10, Creatinine 0.69, Estimat Glomerular Filtration Rate > 60, BUN/ Creatinine Ratio 14, Glucose Level 88, Calcium Level 8.5 Discharge Home Medications: Active Scripts Active Reported Prednisone 50 Mg Tab 50 Mg PO DAILY Instructions to patient/family Please see electronic discharge instructions given to patient. Clinical Quality Measures DVT/VTE Risk/Contraindication: Risk Factor Score Per Nursin RFS Level Per Nursing on Admit: 2=Moderate KASIE REGAN MD Jul 16, 2018 11:02
[2018-07-16] MEDS ORDERED: ACHD5005 PO (11:03)
--- NOTE | 2018-07-16 11:06 | Discharge Inst-Simple/Standard ---
Discharge Inst-Standard Discharge Medications New, Converted or Re-Newed RX: RX on Chart Patient Instructions/Follow Up Plan of Care/Instructions/FU: May shower. Ambulate more to avoid DVT. Incentive spirometry. Taper prednisone by 10 mg per day (*40 mg tomorrow, 30 mg on Tuesday etc) and stay on 10 mg daily until seen in my office. F/U with me on Tuesday07/24/18 Activity as Tolerated: Yes Discharge Diet: No Restrictions KASIE REGAN MD Jul 16, 2018 11:05
[2018-07-16 11:15] VITALS: BP 118/76
[2018-07-16 16:00] VITALS: BP 118/76
== END 2018-07-16 15:50 | disposition home or self-care (01) | DRG 801 ==
LOC: 4TH 07-14 06:47 → SURG 07-14 06:48 → EDSTATUS 07-14 08:30 → 4TH 07-14 16:15
PROVIDERS: ADMIT Surgery; ATTEND Surgery
PROC: 07TP4ZZ Resection of Spleen, Percutaneous Endoscopic Approach (ICD-10-PCS; principal; 2018-07-14 11:49)
DX: D69.3 Immune thrombocytopenic purpura (principal); R33.9 Retention of urine, unspecified
CPT/HCPCS: 36415; 80048; 84703; 85025; 86850; 86900; 86901; 87081; 94664

== ENCOUNTER 2018-07-13 08:14 | Outpatient (RCR) | payer OTHER ==
[2018-06-20 12:55] LABS: BASOPHILS % (AUTO) 1 % (0-10); EOSINOPHILS # (AUTO) 0.2 10^3/uL (0.0-0.3); EOSINOPHILS % (AUTO) 2 % (0-10); HEMATOCRIT 41 % (35-52); HEMOGLOBIN 13.2 G/DL (11.5-16.0); LYMPHOCYTES # (AUTO) 1.8 X 10^3 (1.0-4.0); LYMPHOCYTES % (AUTO) 22 % (12-44); MEAN CORPUSCULAR HEMOGLOBIN 26 PG (25-34); MEAN CORPUSCULAR HGB CONC 32 G/DL (32-36); MEAN CORPUSCULAR VOLUME 83 FL (80-99); MONOCYTES # (AUTO) 0.6 X 10^3 (0.0-1.0); MONOCYTES % (AUTO) 7 % (0-12); NEUTROPHILS # (AUTO) 5.8 X 10^3 (1.8-7.8); NEUTROPHILS % (AUTO) 69 % (42-75); PLATELET COUNT 51 10^3/uL (130-400); RED CELL DISTRIBUTION WIDTH 13.8 % (10.0-14.5); WHITE BLOOD COUNT 8.4 10^3/uL (4.3-11.0)
[~2018-07-13 08:14] MED LIST changes: +ACETAMINOPHEN 500 MG TAB (TYLENOL) CANCER CTR ONE; +IMMU GLOBULIN,GAMMA (IGG) 50 ML IV SCH; +IMMUNE GLOBULIN,GAMMA (IGG) 200 ML IV SCH; +diphenhydrAMINE 25 MG TAB (BENADRYL) CANCER CENTER PO ONE
[2018-07-13] MEDS ORDERED: ACETAMINOPHEN 500 MG TAB (TYLENOL) CANCER CTR ONE (08:15)
[2018-07-16] MEDS ORDERED: ACHD5005 PO (11:03)
== END 2018-09-18 | disposition home or self-care (01) ==
LOC: ONC 08:14
PROVIDERS: ATTEND Internal Medicine Hematology & Oncology
DX: D69.3 Immune thrombocytopenic purpura (principal); D50.9 Iron deficiency anemia, unspecified; Z79.899 Other long term (current) drug therapy
CPT/HCPCS: 36415; 82728; 85025; 96365; 96366; 99213; J1569

== ENCOUNTER 2018-07-13 15:20 | Outpatient (CLI) | payer OTHER ==
[~2018-07-13] VITALS: Ht 152.4 cm; Wt 48.5 kg
[~2018-07-13 15:20] MED LIST changes: -ACETAMINOPHEN 500 MG TAB (TYLENOL) CANCER CTR ONE; -IMMU GLOBULIN,GAMMA (IGG) 50 ML IV SCH; -IMMUNE GLOBULIN,GAMMA (IGG) 200 ML IV SCH; -diphenhydrAMINE 25 MG TAB (BENADRYL) CANCER CENTER PO ONE
== END 2018-07-13 15:37 ==
LOC: PREOP 15:20
PROVIDERS: ATTEND Surgery
DX: Z01.818 Encounter for other preprocedural examination (principal)

== ENCOUNTER 2018-11-21 13:06 | Outpatient (RCR) | payer OTHER ==
[~2018-11-21 13:06] MED LIST changes: +ACHD5005 PO
[2018-11-21 13:29] LABS: BASOPHILS # (AUTO) 0.1 10^3/uL (0.0-0.1); BASOPHILS % (AUTO) 1 % (0-10); EOSINOPHILS # (AUTO) 0.1 10^3/uL (0.0-0.3); EOSINOPHILS % (AUTO) 1 % (0-10); HEMATOCRIT 36 % (35-52); HEMOGLOBIN 10.9 G/DL (11.5-16.0); LYMPHOCYTES # (AUTO) 2.8 X 10^3 (1.0-4.0); LYMPHOCYTES % (AUTO) 36 % (12-44); MEAN CORPUSCULAR HEMOGLOBIN 24 PG (25-34); MEAN CORPUSCULAR HGB CONC 31 G/DL (32-36); MEAN CORPUSCULAR VOLUME 77 FL (80-99); MONOCYTES # (AUTO) 0.7 X 10^3 (0.0-1.0); MONOCYTES % (AUTO) 10 % (0-12); NEUTROPHILS % (AUTO) 52 % (42-75); RED CELL DISTRIBUTION WIDTH 15.7 % (10.0-14.5); WHITE BLOOD COUNT 7.7 10^3/uL (4.3-11.0)
[2018-11-21 13:30] LABS: PLATELET COUNT 111 10^3/uL (130-400)
[2018-11-21 13:54] LABS: ALANINE AMINOTRANSFERASE 26 U/L (0-55); ALBUMIN 4.4 GM/DL (3.2-4.5); ALKALINE PHOSPHATASE 85 U/L (40-136); BILIRUBIN,TOTAL 0.3 MG/DL (0.1-1.0); BUN/CREATININE RATIO 14; CALCIUM 9.4 MG/DL (8.5-10.1); CARBON DIOXIDE 25 MMOL/L (21-32); CHLORIDE 107 MMOL/L (98-107); CREATININE SERUM 0.77 MG/DL (0.60-1.30); GFR ESTIMATED > 60; GLUCOSE 86 MG/DL (70-105); POTASSIUM 3.7 MMOL/L (3.6-5.0); SODIUM 139 MMOL/L (135-145); TOTAL PROTEIN 7.7 GM/DL (6.4-8.2)
== END 2019-02-19 | disposition home or self-care (01) ==
LOC: ONC 13:06
PROVIDERS: ATTEND Internal Medicine Hematology & Oncology
DX: D69.3 Immune thrombocytopenic purpura (principal); D50.9 Iron deficiency anemia, unspecified; Z79.899 Other long term (current) drug therapy
CPT/HCPCS: 36415; 80053; 82728; 85025; 99213

== ENCOUNTER 2019-02-27 12:59 | Outpatient (RCR) | payer SELFPAY ==
[2019-02-27 13:23] LABS: BASOPHILS # (AUTO) 0.1 10^3/uL (0.0-0.1); BASOPHILS % (AUTO) 1 % (0-10); EOSINOPHILS # (AUTO) 0.1 10^3/uL (0.0-0.3); EOSINOPHILS % (AUTO) 2 % (0-10); HEMATOCRIT 34 % (35-52); HEMOGLOBIN 10.4 G/DL (11.5-16.0); LYMPHOCYTES # (AUTO) 2.4 X 10^3 (1.0-4.0); LYMPHOCYTES % (AUTO) 29 % (12-44); MEAN CORPUSCULAR HEMOGLOBIN 21 PG (25-34); MEAN CORPUSCULAR HGB CONC 31 G/DL (32-36); MEAN CORPUSCULAR VOLUME 70 FL (80-99); MONOCYTES # (AUTO) 0.6 X 10^3 (0.0-1.0); MONOCYTES % (AUTO) 8 % (0-12); NEUTROPHILS # (AUTO) 5.1 X 10^3 (1.8-7.8); NEUTROPHILS % (AUTO) 62 % (42-75); PLATELET COUNT 96 10^3/uL (130-400); RED CELL DISTRIBUTION WIDTH 20.3 % (10.0-14.5); WHITE BLOOD COUNT 8.2 10^3/uL (4.3-11.0)
[2019-02-27 13:39] LABS: ALANINE AMINOTRANSFERASE 15 U/L (0-55); ALKALINE PHOSPHATASE 86 U/L (40-136); BILIRUBIN,TOTAL 0.2 MG/DL (0.1-1.0); BUN/CREATININE RATIO 18; CALCIUM 8.6 MG/DL (8.5-10.1); CARBON DIOXIDE 22 MMOL/L (21-32); CHLORIDE 109 MMOL/L (98-107); CREATININE SERUM 0.73 MG/DL (0.60-1.30); GFR ESTIMATED > 60; GLUCOSE 140 MG/DL (70-105); POTASSIUM 3.3 MMOL/L (3.6-5.0); SODIUM 141 MMOL/L (135-145)
[2019-02-27] MEDS ORDERED: IRON SUCROSE 100 MG/5 ML (VENOFER) VIAL CANCER CTR IV SCH (15:15)
[2019-03-01] MEDS ORDERED: IRON SUCROSE 100 MG/5 ML (VENOFER) VIAL CANCER CTR IV SCH (12:15)
== END 2019-05-28 | disposition home or self-care (01) ==
LOC: ONC 12:59
PROVIDERS: ATTEND Internal Medicine Hematology & Oncology
DX: D69.3 Immune thrombocytopenic purpura (principal); D50.9 Iron deficiency anemia, unspecified; R79.0 Abnormal level of blood mineral; Z90.81 Acquired absence of spleen; Z79.899 Other long term (current) drug therapy
CPT/HCPCS: 36415; 80053; 82728; 85025; 96374

== ENCOUNTER 2021-04-28 14:15 | Outpatient (RCR) | payer SELFPAY ==
[2021-04-28 15:07] LABS: BASOPHILS # (AUTO) 0.1 10^3/uL (0.0-0.1); BASOPHILS % (AUTO) 1 % (0-10); EOSINOPHILS # (AUTO) 0.4 10^3/uL (0.0-0.3); EOSINOPHILS % (AUTO) 4 % (0-10); HEMATOCRIT 43 % (35-52); HEMOGLOBIN 14.1 g/dL (11.5-16.0); LYMPHOCYTES # (AUTO) 4.6 10^3/uL (1.0-4.0); LYMPHOCYTES % (AUTO) 40 % (12-44); MEAN CORPUSCULAR HEMOGLOBIN 28 pg (25-34); MEAN CORPUSCULAR HGB CONC 33 g/dL (32-36); MEAN CORPUSCULAR VOLUME 85 fL (80-99); MONOCYTES # (AUTO) 0.7 10^3/uL (0.0-1.0); MONOCYTES % (AUTO) 6 % (0-12); NEUTROPHILS # (AUTO) 5.5 10^3/uL (1.8-7.8); NEUTROPHILS % (AUTO) 49 % (42-75); PLATELET COUNT 73 10^3/uL (130-400); WHITE BLOOD COUNT 11.3 10^3/uL (4.3-11.0)
== END 2021-05-22 | disposition home or self-care (01) ==
LOC: ONC 14:15
PROVIDERS: ATTEND Internal Medicine Hematology & Oncology
DX: D69.3 Immune thrombocytopenic purpura (principal); Z86.2 Personal history of diseases of the blood and blood-forming organs and certain disorders involving the immune mechanism
CPT/HCPCS: 85025; G0463; 99213

== ENCOUNTER 2021-06-02 14:05 | Outpatient (RCR) | payer SELFPAY ==
[2021-06-02 14:19] LABS: BASOPHILS % (AUTO) 0 % (0-10); EOSINOPHILS # (AUTO) 0.1 10^3/uL (0.0-0.3); EOSINOPHILS % (AUTO) 1 % (0-10); HEMOGLOBIN 14.2 g/dL (11.5-16.0); LYMPHOCYTES % (AUTO) 41 % (12-44); MEAN CORPUSCULAR HEMOGLOBIN 28 pg (25-34); MEAN CORPUSCULAR HGB CONC 33 g/dL (32-36); MEAN CORPUSCULAR VOLUME 86 fL (80-99); MONOCYTES # (AUTO) 0.6 10^3/uL (0.0-1.0); MONOCYTES % (AUTO) 6 % (0-12)
[2021-06-02 14:22] LABS: HEMATOCRIT 44 % (35-52); LYMPHOCYTES # (AUTO) 3.9 10^3/uL (1.0-4.0); NEUTROPHILS # (AUTO) 4.8 10^3/uL (1.8-7.8); NEUTROPHILS % (AUTO) 52 % (42-75); PLATELET COUNT 51 10^3/uL (130-400); WHITE BLOOD COUNT 9.3 10^3/uL (4.3-11.0)
[2021-06-02 14:46] LABS: ALBUMIN 4.1 GM/DL (3.2-4.5); BILIRUBIN,TOTAL 0.2 MG/DL (0.1-1.0); CALCIUM 9.1 MG/DL (8.5-10.1); CREATININE SERUM 0.73 MG/DL (0.60-1.30); POTASSIUM 3.3 MMOL/L (3.6-5.0); TOTAL PROTEIN 7.7 GM/DL (6.4-8.2)
== END 2021-06-11 09:50 | disposition home or self-care (01) ==
LOC: ONC 14:05
PROVIDERS: ATTEND Internal Medicine Hematology & Oncology
DX: D50.9 Iron deficiency anemia, unspecified (principal); Z86.2 Personal history of diseases of the blood and blood-forming organs and certain disorders involving the immune mechanism; Z90.81 Acquired absence of spleen
CPT/HCPCS: 80053; 82728; 85025; G0463; 99213

== ENCOUNTER 2021-06-16 14:55 | Outpatient (RCR) | payer SELFPAY ==
[2021-06-16 15:07] LABS: BASOPHILS # (AUTO) 0.1 10^3/uL (0.0-0.1); BASOPHILS % (AUTO) 1 % (0-10); HEMOGLOBIN 12.6 g/dL (11.5-16.0); MEAN CORPUSCULAR VOLUME 86 fL (80-99)
[2021-06-16 15:09] LABS: EOSINOPHILS # (AUTO) 0.2 10^3/uL (0.0-0.3); EOSINOPHILS % (AUTO) 2 % (0-10); HEMATOCRIT 39 % (35-52); LYMPHOCYTES # (AUTO) 4.3 10^3/uL (1.0-4.0); LYMPHOCYTES % (AUTO) 34 % (12-44); MEAN CORPUSCULAR HEMOGLOBIN 28 pg (25-34); MEAN CORPUSCULAR HGB CONC 32 g/dL (32-36); MONOCYTES % (AUTO) 8 % (0-12); NEUTROPHILS # (AUTO) 7.1 10^3/uL (1.8-7.8); NEUTROPHILS % (AUTO) 56 % (42-75); PLATELET COUNT 79 10^3/uL (130-400); WHITE BLOOD COUNT 12.8 10^3/uL (4.3-11.0)
== END 2021-06-22 | disposition home or self-care (01) ==
LOC: ONC 14:55
PROVIDERS: ATTEND Internal Medicine Hematology & Oncology
DX: D69.49 Other primary thrombocytopenia (principal); D50.9 Iron deficiency anemia, unspecified; Z90.81 Acquired absence of spleen
CPT/HCPCS: 85025; G0463; 99213

== ENCOUNTER 2021-09-16 14:51 | Outpatient (RCR) | payer SELFPAY ==
[2021-09-16 15:04] LABS: BASOPHILS % (AUTO) 1 % (0-10); EOSINOPHILS # (AUTO) 0.4 10^3/uL (0.0-0.3); LYMPHOCYTES # (AUTO) 3.7 10^3/uL (1.0-4.0)
[2021-09-16 15:06] LABS: BASOPHILS # (AUTO) 0.1 10^3/uL (0.0-0.1); EOSINOPHILS % (AUTO) 3 % (0-10); HEMATOCRIT 43 % (35-52); LYMPHOCYTES % (AUTO) 29 % (12-44); MEAN CORPUSCULAR HEMOGLOBIN 28 pg (25-34); MEAN CORPUSCULAR HGB CONC 33 g/dL (32-36); MEAN CORPUSCULAR VOLUME 86 fL (80-99); MONOCYTES % (AUTO) 8 % (0-12); NEUTROPHILS # (AUTO) 7.5 10^3/uL (1.8-7.8); NEUTROPHILS % (AUTO) 59 % (42-75); PLATELET COUNT 71 10^3/uL (130-400); WHITE BLOOD COUNT 12.6 10^3/uL (4.3-11.0)
[2021-09-16 15:25] LABS: BILIRUBIN,TOTAL 0.3 MG/DL (0.1-1.0); CALCIUM 8.8 MG/DL (8.5-10.1); CREATININE SERUM 0.9 MG/DL (0.60-1.30); POTASSIUM 3.6 MMOL/L (3.6-5.0); TOTAL PROTEIN 7.6 GM/DL (6.4-8.2)
== END 2021-09-19 | disposition home or self-care (01) ==
LOC: ONC 14:51
PROVIDERS: ATTEND Internal Medicine Hematology & Oncology
DX: D69.49 Other primary thrombocytopenia (principal); D50.9 Iron deficiency anemia, unspecified; Z90.81 Acquired absence of spleen
CPT/HCPCS: 80053; 85025; G0463; 36415; 99213

== ENCOUNTER 2022-04-19 15:02 | Outpatient (RCR) | payer SELFPAY ==
[2022-04-19 15:47] LABS: BASOPHILS # (AUTO) 0.1 10^3/uL (0.0-0.1); BASOPHILS % (AUTO) 0 % (0-10); EOSINOPHILS # (AUTO) 0.2 10^3/uL (0.0-0.3); EOSINOPHILS % (AUTO) 2 % (0-10); HEMOGLOBIN 11.9 g/dL (11.5-16.0); MEAN CORPUSCULAR HEMOGLOBIN 27 pg (25-34)
[2022-04-19 15:48] LABS: HEMATOCRIT 36 % (35-52); LYMPHOCYTES # (AUTO) 3.4 10^3/uL (1.0-4.0); LYMPHOCYTES % (AUTO) 26 % (12-44); MEAN CORPUSCULAR HGB CONC 33 g/dL (32-36); MEAN CORPUSCULAR VOLUME 81 fL (80-99); MONOCYTES # (AUTO) 0.8 10^3/uL (0.0-1.0); MONOCYTES % (AUTO) 7 % (0-12); NEUTROPHILS # (AUTO) 8.3 10^3/uL (1.8-7.8); NEUTROPHILS % (AUTO) 65 % (42-75); PLATELET COUNT 66 10^3/uL (130-400); WHITE BLOOD COUNT 12.8 10^3/uL (4.3-11.0)
[2022-04-19 15:55] LABS: ALBUMIN 3.4 GM/DL (3.2-4.5); BILIRUBIN,TOTAL 0.2 MG/DL (0.1-1.0); CALCIUM 8.7 MG/DL (8.5-10.1); CREATININE SERUM 0.72 MG/DL (0.60-1.30); POTASSIUM 3.4 MMOL/L (3.6-5.0); TOTAL PROTEIN 6.8 GM/DL (6.4-8.2)
== END 2022-04-21 | disposition home or self-care (01) ==
LOC: ONC 15:02
PROVIDERS: ATTEND Internal Medicine Hematology & Oncology
DX: D69.49 Other primary thrombocytopenia (principal); D50.9 Iron deficiency anemia, unspecified; Z90.81 Acquired absence of spleen
CPT/HCPCS: 80053; 83615; 85025; G0463; 36415; 99213

== ENCOUNTER 2022-08-09 12:33 | Outpatient (CLI) | payer MEDICAID ==
[~2022-08-09 12:33] MED LIST changes: -PREN-37 PO
[2022-08-09 13:28] LABS: BILIRUBIN,URINE NEGATIVE (NEGATIVE); CLARITY,URINE CLEAR; COLOR,URINE YELLOW; GLUCOSE, URINE (UA) NEGATIVE (NEGATIVE); KETONES,URINE NEGATIVE (NEGATIVE); LEUKOCYTE ESTERASE ,URINE NEGATIVE (NEGATIVE); NITRITE,URINE NEGATIVE (NEGATIVE); PH,URINE 6.5 (5-9); PROTEIN,URINE NEGATIVE (NEGATIVE)
[2022-08-09 13:41] LABS: BACTERIA,URINE TRACE /HPF
[2022-08-09 13:42] LABS: AMORPHOUS SEDIMENT,UR FEW AMOR URATES /LPF; HYALINE CASTS, URINE RARE /LPF
[2022-08-09 14:09] VITALS: BP 103/60
[2022-08-09] MEDS ORDERED: PREN-37 PO (14:16)
[2022-08-09] MEDS ORDERED: NS IV 500 ML 500 ML IV SCH (14:45)
[2022-08-09 14:50] LABS: MEAN CORPUSCULAR HEMOGLOBIN 27 pg (25-34)
[2022-08-09 14:52] LABS: BASOPHILS % (AUTO) 0 % (0-10); EOSINOPHILS # (AUTO) 0.2 10^3/uL (0.0-0.3); EOSINOPHILS % (AUTO) 2 % (0-10); HEMATOCRIT 36 % (35-52); HEMOGLOBIN 11.6 g/dL (11.5-16.0); LYMPHOCYTES # (AUTO) 2.8 10^3/uL (1.0-4.0); LYMPHOCYTES % (AUTO) 30 % (12-44); MEAN CORPUSCULAR HGB CONC 33 g/dL (32-36); MEAN CORPUSCULAR VOLUME 82 fL (80-99); MONOCYTES # (AUTO) 0.4 10^3/uL (0.0-1.0); MONOCYTES % (AUTO) 5 % (0-12); NEUTROPHILS # (AUTO) 6.1 10^3/uL (1.8-7.8); NEUTROPHILS % (AUTO) 63 % (42-75); PLATELET COUNT 51 10^3/uL (130-400); WHITE BLOOD COUNT 9.6 10^3/uL (4.3-11.0)
--- NOTE | 2022-08-09 15:49 | Diagnostic Imaging Report ---
Indication: Abdominal pain during Intrauterine gestation is identified. Amniotic fluid index is 13 cm. heart rate is 150 bpm. There is no evidence of previa. Cervical length is 5.2 cm. biometry indicates gestational age of 30 weeks and 6 days. IMPRESSION: No evidence of oligohydramnios or other acute abnormality. Cervical length is normal as is the amniotic fluid index. No maternal adnexal region abnormality was documented. Dictated by: Dictated on workstation # [id number]
--- NOTE | 2022-08-09 15:54 | Diagnostic Imaging Report ---
PROCEDURE: US Renal Bilateral. TECHNIQUE: Multiple real-time grayscale images were obtained over the kidneys in various projections bilaterally. INDICATION: Flank and bladder pain. FINDINGS: There is right kidney is 10.6, the left 10.0 cm. There is no hydroureteronephrosis. An echogenic focus within the right renal midpole is 4.7 mm and is likely a tiny stone. Echogenicity within the left renal midpole of 1 cm is also believed a stone. There is no hydronephrosis. There is no perinephric or subcapsular fluid collection. The bladder is grossly unremarkable. IMPRESSION: There are probable stones bilaterally in the kidneys which appeared otherwise normal and were unobstructed. Dictated by: Dictated on workstation # [id number]
[2022-08-09 17:05] VITALS: BP 105/67
--- NOTE | 2022-08-09 17:28 | History & Physical ---
HPI History of Present Illness: 27-year-old 5 term 3 A1 L3 who presents to women services with lower midline abdominal discomfort. She was in earlier seen at [facility] walk-in with pelvic pressure as well. The pressure has now eased. Her EDC is October 12, 2022 which makes her 31 weeks 0 days gestation. She denies any vaginal bleeding or rupture membranes. Her is complicated by ITP. She had ITP with previous pregnancies and required . Her care has been spotty and she has only had few visits. She did however go to Dr. Adrián López at [facility] on April 28, 2022. She also has a follow-up appointment on August 27, [address] López. 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 Source: patient Exam Limitations: language barrier (But airport maintenance laborer used) Date seen by provider: Aug 09, 2022 Time Seen by Provider: 17:10 Attending Physician Elvia Alatorre MD PCP Admitting Physician: Attending Physician: Alfredo Correa MD Consult Date of Admission Home Medications Home Medications Reviewed patient Home Medication Reconciliation performed by pharmacy medication reconciliations medical office technician and/or nursing. Patients Allergies have been reviewed. Allergies Coded Allergies: No Known Drug Allergies (Unverified , 07/13/18) [id number] Hx Patient Social History Marrital Status: Smoking Status: Never a Smoker Recent Hopitalizations: No Family Medical History Significant Family History: No Pertinent Family Hx Review of Systems ([facility]) Constitutional: see HPI Reviewed Test Results Reviewed Test Results Lab Laboratory Tests Test 08/09/22 13:15 08/09/22 14:38 Range/Units Urine Color YELLOW Urine Clarity CLEAR Urine pH 6.5 5-9 Urine Specific Nash 1.025 H 1.016-1.022 Urine Protein NEGATIVE NEGATIVE Urine Glucose (UA) NEGATIVE NEGATIVE Urine Ketones NEGATIVE NEGATIVE Urine Nitrite NEGATIVE NEGATIVE Urine Bilirubin NEGATIVE NEGATIVE Urine Urobilinogen 0.2 < = 1.0 MG/DL Urine Leukocyte Esterase NEGATIVE NEGATIVE Urine RBC (Auto) 1+ H NEGATIVE Urine RBC 2-5 H /HPF Urine WBC NONE /HPF Urine Squamous Epithelial Cells 5-10 /HPF Urine Crystals PRESENT H /LPF Urine Amorphous Sediment FEW RUPA URATES H /LPF Urine Bacteria TRACE /HPF Urine Casts PRESENT /LPF Urine Hyaline Casts RARE /LPF Urine Mucus NEGATIVE /LPF Urine Culture Indicated NO White Blood Count 9.6 4.3-11.0 10^3/uL Red Blood Count 4.33 3.80-5.11 10^6/uL Hemoglobin 11.6 11.5-16.0 g/dL Hematocrit 36 35-52 % Mean Corpuscular Volume 82 80-99 fL Mean Corpuscular Hemoglobin 27 25-34 pg Mean Corpuscular Hemoglobin Concent 33 32-36 g/dL Red Cell Distribution Width 15.2 H 10.0-14.5 % Platelet Count 51 L 130-400 10^3/uL Mean Platelet Volume 9.0-12.2 fL Immature Granulocyte % (Auto) 0 % Neutrophils (%) (Auto) 63 42-75 % Lymphocytes (%) (Auto) 30 12-44 % Monocytes (%) (Auto) 5 0-12 % Eosinophils (%) (Auto) 2 0-10 % Basophils (%) (Auto) 0 0-10 % Neutrophils # (Auto) 6.1 1.8-7.8 10^3/uL Lymphocytes # (Auto) 2.8 1.0-4.0 10^3/uL Monocytes # (Auto) 0.4 0.0-1.0 10^3/uL Eosinophils # (Auto) 0.2 0.0-0.3 10^3/uL Basophils # (Auto) 0.0 0.0-0.1 10^3/uL Immature Granulocyte # (Auto) 0.0 0.0-0.1 10^3/uL Percent Immature Platelet Fraction 82.9 H 0.0-7.6 % Smear Scan Radiology [facility] [place], [place] NAME: RAMBO GRAHAM [facility] REC#: [id number] PT STATUS: REG CLI : 1995 PHYSICIAN: ALFREDO CORREA MD ADMIT DATE: 08/09/22/LDRP Signed Date of Exam:08/09/22 LIMITED [id number] Indication: Abdominal pain during Intrauterine gestation is identified. Amniotic fluid index is 13 cm. heart rate is 150 bpm. There is no evidence of previa. Cervical length is 5.2 cm. biometry indicates gestational age of 30 weeks and 6 days. IMPRESSION: No evidence of oligohydramnios or other acute abnormality. Cervical length is normal as is the amniotic fluid index. No maternal adnexal region abnormality was documented. Dictated by: Dictated on workstation # [id number] Dict: 08/09/22 [id number] Trans: 08/09/22 1643 [facility] [id number] Interpreted by: LOBITO SHEIKH MD Electronically signed by: LOBITO SHEIKH MD 08/09/22 1643 Physical Exam-([facility]) Physical Exam Vital Signs VS - Last 72 Hours, by Label 08/09/22 14:09 Temp 36.2 Pulse 78 Resp 16 B/P (MAP) 103/60 Pulse Ox 98 O2 Delivery Room Air Capillary Refill : Less Than 3 Seconds General Appearance: no apparent distress (Except when pressing over the suprapubic area) Respiratory: lungs clear Cardiovascular: regular rate, rhythm Comments Cervix exam: She has closed cervix and presenting part is high. Assessment/Plan Assessment/Plan Admission Status: Observation Reason for Inpatient Admission: She is monitored on obstetrical floor for any contractions. She was given IV fluids due to her specific gravity of 1.025. Her overall pain over the incisional site has decreased to 3/10. Assessment & Plan 1. Intrauterine at 31 weeks gestation -She does have an appointment with Dr. Adrián López on August 27 2. History of ITP -Platelets again will be monitored on August 27, 2022 at [facility]. 3. Suprapubic pain appears to be incisional versus early UTI -Today I spoke with Dr. Jaclyn Alanis at [facility] who was on-call. Patient will be sent home with Pyridium 200 mg 3 times a day for 2 days and also Macrobid 100 mg twice daily for 7 days while culture is pending. She may also use Tylenol for the discomfort over the suprapubic area. ALFREDO CORREA MD Aug 09, 2022 17:28
== END 2022-08-09 18:18 | disposition home or self-care (01) ==
LOC: WSo 12:33 → LDRP 12:33 → WSo 18:18
PROVIDERS: ATTEND Family Medicine
DX: O47.03 False labor before 37 completed weeks of gestation, third trimester (principal); Z3A.30 30 weeks gestation of pregnancy
CPT/HCPCS: 36415; 76770; 76815; 81000; 85025; 87088

== ENCOUNTER → 2022-08-09 | Emergency (ER) | payer SELFPAY ==
[~2022-08-09] MED LIST changes: +PREN-37 PO
== END | disposition home or self-care (01) ==
LOC: EDUNIT# 11:47 → ER 11:48
DX: R10.9 Unspecified abdominal pain (principal)

== ENCOUNTER → 2022-10-20 | Outpatient (RCR) | payer SELFPAY ==
[~2022-10-20] MED LIST changes: +PREN-37 PO
[2022-10-20 15:12] LABS: ALBUMIN 4.4 GM/DL (3.2-4.5)
[2022-10-20 15:13] LABS: POTASSIUM 4.1 MMOL/L (3.6-5.0)
[2022-10-20 15:14] LABS: CALCIUM 9.7 MG/DL (8.5-10.1)
[2022-10-20 15:15] LABS: TOTAL PROTEIN 8.2 GM/DL (6.4-8.2)
[2022-10-20 15:17] LABS: BILIRUBIN,TOTAL 0.2 MG/DL (0.1-1.0)
[2022-10-20 15:19] LABS: CREATININE SERUM 0.79 MG/DL (0.60-1.30)
[2022-10-20 15:25] LABS: HEMOGLOBIN 12.9 g/dL (11.5-16.0); MEAN CORPUSCULAR VOLUME 83 fL (80-99); NEUTROPHILS % (AUTO) 51 % (42-75)
[2022-10-20 15:27] LABS: BASOPHILS # (AUTO) 0.1 10^3/uL (0.0-0.1); BASOPHILS % (AUTO) 1 % (0-10); EOSINOPHILS # (AUTO) 0.3 10^3/uL (0.0-0.3); EOSINOPHILS % (AUTO) 4 % (0-10); HEMATOCRIT 41 % (35-52); LYMPHOCYTES # (AUTO) 3.2 10^3/uL (1.0-4.0); LYMPHOCYTES % (AUTO) 37 % (12-44); MEAN CORPUSCULAR HEMOGLOBIN 26 pg (25-34); MEAN CORPUSCULAR HGB CONC 32 g/dL (32-36); MONOCYTES # (AUTO) 0.7 10^3/uL (0.0-1.0); MONOCYTES % (AUTO) 8 % (0-12); NEUTROPHILS # (AUTO) 4.5 10^3/uL (1.8-7.8); PLATELET COUNT 64 10^3/uL (130-400); WHITE BLOOD COUNT 8.8 10^3/uL (4.3-11.0)
[2022-10-20 15:28] LABS: SMEAR SCAN COMMENT YES
[2022-10-21 23:04] LABS: HEPATITIS C ANTIBODY C Non-Reactive (Non-Reactive)
== END ==
LOC: ONC 14:04
PROVIDERS: ATTEND Internal Medicine Hematology & Oncology
DX: D69.3 Immune thrombocytopenic purpura (principal); D50.9 Iron deficiency anemia, unspecified; Z90.81 Acquired absence of spleen
CPT/HCPCS: 36415; 80053; 80074; 85025

== ENCOUNTER 2022-11-22 14:58 | Outpatient (RCR) | payer SELFPAY ==
[2022-11-22 15:28] LABS: BASOPHILS # (AUTO) 0.1 10^3/uL (0.0-0.1); BASOPHILS % (AUTO) 1 % (0-10); EOSINOPHILS % (AUTO) 3 % (0-10); HEMOGLOBIN 11.8 g/dL (11.5-16.0); MEAN CORPUSCULAR HEMOGLOBIN 26 pg (25-34); MEAN CORPUSCULAR HGB CONC 31 g/dL (32-36)
[2022-11-22 15:29] LABS: EOSINOPHILS # (AUTO) 0.3 10^3/uL (0.0-0.3); HEMATOCRIT 38 % (35-52); LYMPHOCYTES # (AUTO) 3.3 10^3/uL (1.0-4.0); LYMPHOCYTES % (AUTO) 35 % (12-44); MEAN CORPUSCULAR VOLUME 84 fL (80-99); MONOCYTES # (AUTO) 0.7 10^3/uL (0.0-1.0); MONOCYTES % (AUTO) 7 % (0-12); NEUTROPHILS # (AUTO) 5.1 10^3/uL (1.8-7.8); NEUTROPHILS % (AUTO) 55 % (42-75); PLATELET COUNT 59 10^3/uL (130-400); WHITE BLOOD COUNT 9.4 10^3/uL (4.3-11.0)
[2022-11-22 15:48] LABS: ALBUMIN 4.2 GM/DL (3.2-4.5); BILIRUBIN,TOTAL 0.3 MG/DL (0.1-1.0); CALCIUM 8.9 MG/DL (8.5-10.1); CREATININE SERUM 0.73 MG/DL (0.60-1.30); POTASSIUM 3.6 MMOL/L (3.6-5.0); TOTAL PROTEIN 7.7 GM/DL (6.4-8.2)
== END 2022-12-20 | disposition home or self-care (01) ==
LOC: ONC 14:58
PROVIDERS: ATTEND Internal Medicine Hematology & Oncology
DX: D69.3 Immune thrombocytopenic purpura (principal); D50.9 Iron deficiency anemia, unspecified; R74.01 Elevation of levels of liver transaminase levels; Z90.81 Acquired absence of spleen
CPT/HCPCS: 80053; 85025